=== PATIENT | female | born 1960 | race Caucasian/White ===

== ENCOUNTER 2018-02-02 09:06 | Outpatient (CLI) | payer MEDICARE, MEDICAID | END 2018-02-02 09:07 | disposition home or self-care (01) | LOC: BICULT 09:06 | PROVIDERS: ATTEND Internal Medicine | DX: B18.2 Chronic viral hepatitis C (principal); R16.0 Hepatomegaly, not elsewhere classified; R16.1 Splenomegaly, not elsewhere classified | CPT/HCPCS: 76705 ==

== ENCOUNTER 2018-07-05 23:08 | Inpatient (IN) | payer MEDICARE, MEDICAID ==
[2018-07-05] MEDS ORDERED: Ondansetron PF 4 MG/2 ML Vial ONE (23:35)
[2018-07-05] MEDS ORDERED: Octreotide Acetate 100 MCG/ML VIAL ONE (23:40)
[2018-07-05] MEDS ORDERED: Pantoprazole 80 MG in Sodium Chloride 0.9% 100 ML IVP SCH (23:45)
[2018-07-05] MEDS ORDERED: Octreotide Acetate 1,250 MCG in Sodium Chloride 0.9% 250 ML 250 ML IVPB SCH (23:45)
[2018-07-05] MEDS ORDERED: cefTRIAXone\\ROCEPHIN 2 GM VIAL ONE (23:46)
[2018-07-05 23:55] LABS: INR-International Normal Ratio 1.5; PTT 32.4 SEC (22.9-36.1); Prothrombin Time 18.3 SEC (12.0-14.7)
[2018-07-06 00:10] LABS: ALT (SGPT) 11 U/L (8-55); AST (SGOT) 20 U/L (5-34); Albumin 3.1 g/dL (3.5-5.0); Alkaline Phosphatase 51 U/L (40-150); Anion Gap 11 mmol/L (10-20); BUN (Urea Nitrogen) 34 mg/dL (9.8-20.1); Bilirubin, Total 0.9 mg/dL (0.2-1.2); Calc. Creatinine Clearance 0 mL/min (70-130); Calcium 8.3 mg/dL (7.8-10.44); Carbon Dioxide 22 mmol/L (22-29); Chloride 102 mmol/L (98-107); Estimated GFR-MDRD 73; Globulin 3.8 g/dL (2.4-3.5); Glucose 124 mg/dL (70-105); Lipase 23 U/L (8-78); Potassium 3.4 mmol/L (3.5-5.1); Protein, Total 6.9 g/dL (6.0-8.3); Sodium 132 mmol/L (136-145)
[2018-07-06 00:12] LABS: #Basophils 0.1 thou/uL (0.0-0.2); #Eosinphils 0.1 thou/uL (0.0-0.7); #Lymphocytes 3.8 thou/uL (1.20-3.40); #Monocytes 0.6 thou/uL (0.11-0.59); #Neutrophils 6.4 thou/uL (1.40-6.50); %Basophils 0.8 % (0.0-1.0); %Eosinophils 1.3 % (0.0-10.0); %Lymphocytes 34.2 % (21.0-51.0); %Monocytes 5.8 % (0.0-10.0); %Neutrophils 57.9 % (42.0-75.0); Hemoglobin 8.7 g/dL (12.0-16.0); Mean Corpuscular HGB CONC 34.9 g/dL (32.0-36.0); Mean Corpuscular Hemoglobin 34.9 pg (27.0-31.0); Mean Corpuscular Volume 99.9 fL (78.0-98.0); Mean Platelet Volume 9.8 fL (7.4-10.4); PLT Morphology Comment Appears Adequate; Platelet Count 114 thou/uL (130-400)
--- NOTE | 2018-07-06 01:34 | PDOC.FPRHP ---
- History of Present Illness Chief Complaint: hematemesis History of Present Illness: This is a 58 yo F who presented to the ED for coffee ground emesis. Patient states she began vomiting about 2-3 hours prior to arrival at the ED. The patient has a PMH significant for Hep C s/p treatment and cirrhosis. Patient states that she [place] been feeling weak over the last week - the patient thought she may have a virus or bug that would pass. On Friday, the weakness worsened and the patient began walking into [place] and feeling unsteady due to weakness. The patient endorses feeling hot and having chills. She states she has gotten progressively SOB over the last few days. She states she has chronic constipation, but she did pass stool yesterday that was dark black. Patient denies cough, chest pain, abdominal pain, LE swelling, headache. ED Course: 4mg IV zofran, 50mcg IVP octreotide, 2g IV Ceftriaxone, 25mcg/hr IV octreotide, 80mg IV protonix, 1L NS - Allergies/Adverse Reactions Allergies Allergy/AdvReac Type Severity Reaction Status Date / Time codeine Allergy Verified 07/05/18 23:39 Iodine and Iodide Containing Allergy Verified 07/05/18 23:40 Produc - History PMHx: HTN, HLD, COPD, Hep C, "heart issues" - affecting her valve PSHx: & tubal ligation in , Knee , hysterectomy FHx: mom/sister - "female" cancer; Uncle - brain cancer Social: 2pack/day X 45 years, quit alcohol 5 years ago - but was "hard drinker" prior to that; smokes weed daily - Review of Systems General: reports: fever/chills, night sweats, fatigue. denies: weight/appetite/ sleep changes ENT: denies: nasal congestion, rhinorrhea Respiratory: reports: cough, shortness of breath. denies: congestion, exercise intolerance Cardiovascular: denies: chest pain, palpitation, edema Gastrointestinal: reports: nausea, vomiting, constipation. denies: diarrhea, abdominal pain Genitourinary: denies: dysuria Skin: reports: jaundice. denies: rashes, lesions Neurological: reports: weakness - Vital signs BP: 120/84 HR: 85 RR: 18 Tmax: 97.9 Pox: 99% on RA Wt: 68 kg - Physical Exam Constitutional: NAD, awake, alert and oriented, well developed HEENT: normocephalic and atraumatic, PERRLA, EOMI, grossly normal vision, grossly normal hearing -HEENT: MM Dry Neck: supple, FROM, no JVD Chest: no-tender to palpation, no lesions Heart: RRR, normal S1/S2, no murmurs/rubs/gallops, pulses present Lungs: CTAB, no respiratory distress, good air movement, no wheezing Abdomen: soft -Abdomen: Liver distended, firm; mildly TTP abdomen, mostly in RUQ Musculoskeletal: ROM grossly normal Neurological: no focal deficit Skin: no rash/lesions, capillary refill <2 seconds Psychiatric: normal mood and affect, good judgment and insight, intact recent and remote memory FMR H&P: Results - Labs Result Diagrams: 07/06/18 03:40 07/06/18 03:40 Lab results: WBC 11.0 thou/uL (4.8-10.8) H 07/05/18 23:37 Hgb 8.7 g/dL (12.0-16.0) L 07/05/18 23:37 Hct 24.9 % (36.0-47.0) L 07/05/18 23:37 MCV 99.9 fL (78.0-98.0) H 07/05/18 23:37 Plt Count 114 thou/uL (130-400) L 07/05/18 23:37 Neutrophils % 57.9 % (42.0-75.0) 07/05/18 23:37 Sodium 132 mmol/L (136-145) L 07/05/18 23:37 Potassium 3.4 mmol/L (3.5-5.1) L 07/05/18 23:37 Chloride 102 mmol/L (98-107) 07/05/18 23:37 Carbon Dioxide 22 mmol/L (22-29) 07/05/18 23:37 BUN 34 mg/dL (9.8-20.1) H 07/05/18 23:37 Creatinine 0.81 mg/dL (0.6-1.1) 07/05/18 23:37 Glucose 124 mg/dL (70-105) H 07/05/18 23:37 Calcium 8.3 mg/dL (7.8-10.44) 07/05/18 23:37 Total Bilirubin 0.9 mg/dL (0.2-1.2) 07/05/18 23:37 AST 20 U/L (5-34) 07/05/18 23:37 ALT 11 U/L (8-55) 07/05/18 23:37 Alkaline Phosphatase 51 U/L (40-150) 07/05/18 23:37 Serum Total Protein 6.9 g/dL (6.0-8.3) 07/05/18 23:37 Albumin 3.1 g/dL (3.5-5.0) L 07/05/18 23:37 Lipase 23 U/L (8-78) 07/05/18 23:37 FMR H&P: A/P - Problem List (1) Hematemesis Current Visit: Yes Status: Acute Code(s): K92.0 - HEMATEMESIS (2) Hepatitis C Current Visit: Yes Status: Acute Code(s): B19.20 - UNSPECIFIED VIRAL HEPATITIS C WITHOUT HEPATIC COMA (3) HLD (hyperlipidemia) Current Visit: Yes Status: Acute Code(s): E78.5 - HYPERLIPIDEMIA, UNSPECIFIED (4) HTN (hypertension) Current Visit: Yes Status: Acute Code(s): I10 - ESSENTIAL (PRIMARY) HYPERTENSION (5) Anemia Current Visit: Yes Status: Acute Code(s): D64.9 - ANEMIA, UNSPECIFIED (6) Leukocytosis Current Visit: Yes Status: Acute Code(s): D72.829 - ELEVATED WHITE BLOOD CELL COUNT, UNSPECIFIED (7) Elevated INR Current Visit: Yes Status: Acute Code(s): R79.1 - ABNORMAL COAGULATION PROFILE (8) Thrombocytopenia Current Visit: Yes Status: Acute Code(s): D69.6 - THROMBOCYTOPENIA, UNSPECIFIED (9) Cirrhosis Current Visit: Yes Status: Acute Code(s): K74.60 - UNSPECIFIED CIRRHOSIS OF LIVER - Plan Symptomatic anemia 2/2 Upper GI bleed - likely 2/2 ulcer vs variceal bleed - continue protonix and octreotide gtt - Hgb 8.7 on admission; transfused 1uPRBCs - Repeat H&H @ 0600 - GI consulted from the ER; appreciate recs. Pt NPO for possible EGD - LR @ 125 ml/hr - Continue rocephin to cover for SBP Suspected Cirrhosis likely 2/2 Hep C - Will order RUQ US - Hep C pending - RPR and HIV pending Thrombocytopenis 2/2 likely cirrhosis - plt on admission: 114 - not currently bleeding - Will continue to monitor Elevated INR 2/2 Cirrhosis - PT 18.3; INR 1.5 - will continue to monitor HTN & HLD - aware, will hold medications for now Tobacco abuse - nicotine patch - smoking cessation counselling Marijuana use - aware, encouraged cessation DISPO: admit to medical, inpt CODE: FULL FMR H&P: Upper Level - Pertinent history 58 yo WF PMH tobacco abuse, Hepatitis C s/p treatment, CAD, and unspecified valvular dysfunction. Presents with 1 week history of generalized malaise, fatigue, and weakness. States she has had very little energy and becomes exhausted after walking short distances. 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 Also report last stool was black. reports constipation. Sees Dr. Stover from GI. ER: Labs, EKG, type and cross 1 unit, transfuse 1 unit, zofran, octreotide gtt, protonix gtt, rocephin 2 g, NS 1 L, GI consulted. - Pertinent findings Vitals: At time of evaluation all WNL GEN: NAD, A&O x4 CV: RRR, no murmur Pulm: CTA-B, normal effort Abdomen: TTP RUQ, liver edge firm, otherwise WNL Labs: H&H 8.7/24.9, platlets 114, INR 1.5, FOBT positive, EKG:rate 88, NSR, QTc 489 - Plan Date/Time: 07/06/18 0133 I, Aly Mejia MD, have evaluated this patient and agree with findings/plan as outlined by planner internship resident. Pertinent changes/additions are listed here. 1. Symptomatic anemia 2/2 upper GI bleed, (ulcer vs variceal): Continue protonix and octreotide gtt, Repeat H&H at 0600, GI consulted in ER and will see evaluate in the morning. Monitor vitals. s/p 1 unit PRBC, LR at 125 mL/hr. Continue rocephin. 2. Suspected cirrhosis: RUQ US, check hep C viral load, hep B surface antigen and antibody, HIV, and RPR 3. Thrombocytopenia 2/2 #2: monitor. no signs of bleeding 4. Elevated INR 2/2 #2: Monitor 5. CAD: No signs of cardiac stress at this time. 6. Tobacco abuse: Nicotine patch 7. Marijuana use: encouraged cessation Diet: NPO PPx: SCD, fall CODE: FULL Dispo: inpatient, medical, >[address] Duenas. Addendum - Attending - Attending Attestation Date/Time: 07/06/18 5190 I personally evaluated the patient and discussed the management with Dr. Garcia/ Roberto. I agree with the History, Examination, Assessment and Plan documented above with any addition or exceptions noted below. Suspect UGI bleed in likely cirrhotic patient. Trend H/H. Octreotide, Rocephin for ppx, Protonix. GI on board for likely EGD later today. Further recs per that result.
[2018-07-06] MEDS ORDERED: Ondansetron PF 4 MG/2 ML Vial IVP PRN (01:49)
[2018-07-06] MEDS ORDERED: Ondansetron ODT 4 MG TAB PO PRN (01:49)
[2018-07-06] MEDS ORDERED: Senokot S 8.6-50 MG TAB PO PRN (01:49)
[2018-07-06] MEDS ORDERED: Pantoprazole 80 MG in Sodium Chloride 0.9% 100 ML IVP SCH (02:30)
[2018-07-06] MEDS ORDERED: Lactated Ringer's 1,000 ML IV SCH (02:30)
[2018-07-06] MEDS ORDERED: Octreotide Acetate 1,250 MCG in Sodium Chloride 0.9% 250 ML 250 ML IVPB SCH (02:30)
[2018-07-06] MEDS ORDERED: Nicotine 21 MG PATCH TD SCH (03:00)
[2018-07-06 03:47] LABS: HBSAB Concentration 0.91 mIU/mL; HIV (1/2) Antibody/Antigen Non-Reactive (NonReactive); HIV 1/2 INDEX 0.13 S/CO (<1.00); Hep B Surf AB Non-Reactive (NonReactive); Hep B Surf Ag Non-Reactive S/CO (NonReactive)
[2018-07-06 03:56] LABS: #Eosinphils 0.1 thou/uL (0.0-0.7); #Lymphocytes 1.6 thou/uL (1.20-3.40); #Monocytes 0.4 thou/uL (0.11-0.59); #Neutrophils 4.7 thou/uL (1.40-6.50); %Basophils 0.3 % (0.0-1.0); %Eosinophils 0.9 % (0.0-10.0); %Lymphocytes 23.4 % (21.0-51.0); %Monocytes 5.4 % (0.0-10.0); Hemoglobin 8.6 g/dL (12.0-16.0); Mean Corpuscular HGB CONC 34.7 g/dL (32.0-36.0); Mean Corpuscular Hemoglobin 33.8 pg (27.0-31.0); Mean Corpuscular Volume 97.6 fL (78.0-98.0); Mean Platelet Volume 9.8 fL (7.4-10.4); Platelet Count 82 thou/uL (130-400); RBC Distribution Width 13.9 % (11.5-14.5); Red Blood Cell (RBC) Count 2.54 mill/uL (4.20-5.40); White Blood Cell (WBC) Count 6.7 thou/uL (4.8-10.8)
[2018-07-06 04:07] LABS: ALT (SGPT) 10 U/L (8-55); AST (SGOT) 19 U/L (5-34); Albumin 2.9 g/dL (3.5-5.0); Alkaline Phosphatase 48 U/L (40-150); Anion Gap 9 mmol/L (10-20); BUN (Urea Nitrogen) 32 mg/dL (9.8-20.1); Bilirubin, Total 0.7 mg/dL (0.2-1.2); Calc. Creatinine Clearance 0 mL/min (70-130); Calcium 7.7 mg/dL (7.8-10.44); Carbon Dioxide 22 mmol/L (22-29); Chloride 107 mmol/L (98-107); Estimated GFR-MDRD 74; Globulin 3.6 g/dL (2.4-3.5); Glucose 132 mg/dL (70-105); Potassium 3.5 mmol/L (3.5-5.1); Protein, Total 6.5 g/dL (6.0-8.3); Sodium 134 mmol/L (136-145)
[2018-07-06 05:20] LABS: Syphilis Antibody Nonreactive (Nonreactive); Syphilis Antibody Index 0.09 S/CO (<1.00 Non-Reactive)
--- NOTE | 2018-07-06 09:21 | ULT ---
RIGHT UPPER QUADRANT ULTRASOUND: Indication: History of cirrhosis. Comparison: None. FINDINGS: There is a nodular contour to the liver with course echogenicity consistent with the patient's histor y of cirrhosis. No focal lesion is evident. Small stones are seen within the gallbladder. No sonograp hic Prado's signs reported. The common bile duct measures 3.8 mm. The right kidney measured 12 cm in length. Visualized aspects of the pancreas are unremarkable. IMPRESSION: 1. Cirrhotic morphology of the liver. 2. Cholelithiasis without sonographic evidence of acute cholecystitis. POS: [facility]
[2018-07-06 09:41] LABS: Mean Corpuscular HGB CONC 35.2 g/dL (32.0-36.0); Mean Corpuscular Hemoglobin 34.3 pg (27.0-31.0); Mean Corpuscular Volume 97.6 fL (78.0-98.0); Mean Platelet Volume 9.9 fL (7.4-10.4); Platelet Count 82 thou/uL (130-400); RBC Distribution Width 14.1 % (11.5-14.5); Red Blood Cell (RBC) Count 2.33 mill/uL (4.20-5.40); White Blood Cell (WBC) Count 6.1 thou/uL (4.8-10.8)
--- NOTE | 2018-07-06 10:27 | CON ---
DATE OF CONSULTATION: 07/06/2018 GASTROENTEROLOGY CONSULTATION NOTE CHIEF COMPLAINT: Vomited blood. HISTORY OF PRESENT ILLNESS: Ms. Harvey is a 58-year-old woman, who has been feeling weak for the last couple of days. Last night, she started vomiting large amounts of black and coffee-ground appearing material. She did this several times and came to the emergency room, was found to have hemorrhagic shock with a blood pressure in the 60s. She was given fluids and blood transfusion with improvement in her blood pressure. She has had no red hematemesis. She has no abdominal pain. She has had constipation at baseline lately with her last good bowel movement a week ago with Ex-Lax. She has had some small stools in between. No loose stool output with this acute bleed. She finished treatment for hepatitis C with a sustained virologic response several months ago. She had colonoscopy back in February [address] Stover with some hyperplastic polyps removed. She was last seen in GI Clinic on January 2018 and was advised to undergo endoscopy for varices screening, however, she chose to delay this. PAST MEDICAL HISTORY: Cirrhosis, hepatitis C treated with Epclusa with cure and chronic constipation. PAST SURGICAL HISTORY: Knee surgery, hysterectomy, foot surgery, , and tubal ligation. SOCIAL HISTORY: She states she drank a couple of beers immediately after finishing the Epclusa course, but has not been drinking since then. She smokes 3 to 4 marijuana cigarettes per day. She smokes 2 packs of tobacco cigarettes per day. Denies IV drug use. FAMILY HISTORY: Mother had female cancer. Sister had female cancer. Her uncle had brain cancer. ALLERGIES: CODEINE. MEDICATIONS: Medications as an outpatient include: 1. Toprol-XL. 2. Tetracycline, which she takes for acne. 3. Nortriptyline. 4. Pravastatin. 5. Estradiol. 6. Albuterol. REVIEW OF SYSTEMS: Negative x10 systems reviewed except as stated in the history of present illness. PHYSICAL EXAMINATION: VITAL SIGNS: Blood pressure 98/48, pulse 80, and temperature 97.9. GENERAL: She is in no acute distress. She is alert and oriented x3. HEENT: Eyes have no scleral icterus. Oropharynx is clear without lesions. NECK: No cervical or supraclavicular lymphadenopathy. LUNGS: Clear to auscultation bilaterally. HEART: Regular rate and rhythm without murmur. ABDOMEN: Soft, nontender, and nondistended. Bowel sounds are present. No hepatomegaly. EXTREMITIES: No lower extremity edema. NEUROLOGIC: Cranial nerves are grossly intact. There is no asterixis on neurological exam. LABORATORY DATA: INR 1.5. Hemoglobin is 8.6 after 1 unit transfusion, hemoglobin was 8.7 prior to transfusion, platelets 82,000, white blood cell count 6.7. Creatinine 0.8, bilirubin 0.9, AST 19, ALT 10, alkaline phosphatase 48, albumin is 2.9, and lipase 23. IMPRESSION: 1. Hematemesis and anemia of acute blood loss. She has received 1 unit transfusion. 2. Cirrhosis due to hepatitis C and past alcohol. She has not been drinking any alcohol for the last few months. 3. Tobacco abuse. She smokes 2 packs a day and 3 or 4 marijuana cigarettes per day. 4. History of hepatitis C, treated with Epclusa and cured. 5. There is no history of ascites or encephalopathy. RECOMMENDATIONS: 1. Octreotide drip. 2. Protonix drip. 3. Ceftriaxone for SBP prophylaxis. 4. EGD today. Job ID: [id number]
[2018-07-06] MEDS ORDERED: PHENYLEPHRINE-NS 100 MCG/ML 10 ML SYRINGE ONE (13:47)
[2018-07-06] MEDS ORDERED: PROPOFOL 200 MG/20 ML VIAL ONE (13:47)
[2018-07-06] MEDS ORDERED: Lidocaine 1% PF 5 ML VIAL ONE (13:47)
[2018-07-06] MEDS ORDERED: Ondansetron PF 4 MG/2 ML Vial ONE (13:47)
[2018-07-06] MEDS ORDERED: Succinylcholine Chloride 20 MG/ML 10 ml SYRINGE FS ONE (13:47)
--- NOTE | 2018-07-06 16:26 | OP ---
DATE OF PROCEDURE: 07/06/2018 PROCEDURE PERFORMED: Esophagogastroduodenoscopy. PREOPERATIVE DIAGNOSES: Hematemesis and hypovolemic shock. Her hemodynamic status is improved with fluids and 1 unit of red blood cell transfusion. She also has a history of cirrhosis. DESCRIPTION OF PROCEDURE: Informed consent was obtained from the patient. She was sedated with total intravenous anesthesia. The bite block was placed, and the endoscope was advanced easily to the second portion of the duodenum, and retroflexion was performed in the stomach. The esophagus was normal overall. There were no varices present. No obvious Kenzie-Ch tear at the GE junction. The stomach had mild portal hypertensive gastropathy in the body of the stomach. There was staining of old black blood, and a couple of areas of adherent red blood in the antrum and in the bulb of the duodenum. All this washed clear without any significant underlying lesion. There were 2 erosions in the antrum of the stomach measuring 3 mm again without stigmata of recent bleeding. No varices were in the esophagus or stomach. The second portion the duodenum was unremarkable. The mucosa was carefully inspected. There were no obvious AVMs. There were a few small red spots that again washed clear without any signs of active bleeding and did not appear to be apparent obvious AVMs. IMPRESSION: 1. Two small 3-mm antral erosions without stigmata of recent bleeding. 2. Mild portal hypertensive gastropathy. 3. There are a few areas of adherent black blood and red blood in the antrum and bulb of the duodenum. All this washed clear without any underlying lesion or apparent bleeding source identified. 4. No gastric or esophageal varices. 5. She could have had a Kenzie-Ch tear that bled and has healed over. RECOMMENDATIONS: 1. Continue pantoprazole 40 mg p.o. daily. 2. Discontinue octreotide. 3. Start a clear liquid diet. 4. Recheck her hemoglobin in the morning. 5. She did receive ceftriaxone IV for SBP prophylaxis in the ER last night. Job ID: [id number]
[2018-07-06 19:01] LABS: Hemoglobin 6.9 g/dL (12.0-16.0); Mean Corpuscular HGB CONC 35.4 g/dL (32.0-36.0); Mean Corpuscular Hemoglobin 34.6 pg (27.0-31.0); Mean Corpuscular Volume 97.7 fL (78.0-98.0); Mean Platelet Volume 10.2 fL (7.4-10.4); Platelet Count 58 thou/uL (130-400); RBC Distribution Width 14.2 % (11.5-14.5); Red Blood Cell (RBC) Count 1.99 mill/uL (4.20-5.40); White Blood Cell (WBC) Count 3.8 thou/uL (4.8-10.8)
[2018-07-06] MEDS: Lactated Ringer's 1,000 ML IV SCH (22:06)
[2018-07-06] MEDS: Bisacodyl 5 MG TAB PO SCH (22:06)
[2018-07-07] MEDS: Lactated Ringer's 1,000 ML IV SCH ×2 (00:07→08:56)
[2018-07-07] MEDS: cefTRIAXone\\ROCEPHIN 2 GM in Sodium Chloride 0.9% 100 ML IVPB SCH ×2 (00:24→23:55)
[2018-07-07 05:46] LABS: INR-International Normal Ratio 1.4; Prothrombin Time 17.7 SEC (12.0-14.7)
[2018-07-07 05:52] LABS: #Monocytes 0.2 thou/uL (0.11-0.59); #Neutrophils 0.9 thou/uL (1.40-6.50); %Basophils 0.2 % (0.0-1.0); %Eosinophils 1.7 % (0.0-10.0); %Lymphocytes 46.3 % (21.0-51.0); %Monocytes 8.4 % (0.0-10.0); %Neutrophils 43.4 % (42.0-75.0); Hemoglobin 7.5 g/dL (12.0-16.0); Mean Corpuscular HGB CONC 35.6 g/dL (32.0-36.0); Mean Corpuscular Hemoglobin 34.7 pg (27.0-31.0); Mean Corpuscular Volume 97.6 fL (78.0-98.0); Mean Platelet Volume 9.4 fL (7.4-10.4); Platelet Count 62 thou/uL (130-400); RBC Distribution Width 13.5 % (11.5-14.5); Red Blood Cell (RBC) Count 2.15 mill/uL (4.20-5.40); White Blood Cell (WBC) Count 2.1 thou/uL (4.8-10.8)
[2018-07-07] MEDS ORDERED: traMADol HCl 50 MG TAB PO PRN (06:58)
[2018-07-07 07:17] LABS: Reticulocyte Count 4.4 % (0.5-1.5)
--- NOTE | 2018-07-07 07:29 | PDOC.FM ---
- Subjective Subjective: Patient was transfused 1 U PRBC last night after hgb came back at 6.9. This morning patient denies symptoms. She denies dyspnea, lightheadedness, or chest pain. She denies N/V/D. Denies any stools. Patient states she has been able to ambulate to the restroom without difficulty. She has been having a mild headache since last night which caused some trouble sleeping. - Objective Vital Signs & Weight: Vital Signs (12 hours) Temp Pulse Pulse Resp BP BP BP 07/07/18 03:30 99.2 F 94 18 95/55 L 07/06/18 22:42 98.9 F 16 129/60 07/06/18 21:05 98.2 F 90 16 125/57 L 07/06/18 20:31 96.8 F L 97 18 111/63 07/06/18 20:15 97.2 F L 91 18 96/54 L Pulse Ox 07/07/18 03:30 94 L 07/06/18 22:42 99 07/06/18 21:05 99 07/06/18 20:31 100 07/06/18 20:15 98 I&O: 07/06/18 07/07/18 07/08/18 06:59 06:59 06:59 Intake Total 2070 Output Total 1100 Balance 970 Result Diagrams: 07/07/18 05:11 07/06/18 03:40 Phys Exam - Physical Examination Constitutional: NAD HEENT: PERRLA, moist MMs Neck: no nodes, no JVD pale [place] Respiratory: no wheezing, clear to auscultation bilateral Cardiovascular: RRR, no significant murmur Gastrointestinal: soft, non-tender, no distention, positive bowel sounds Musculoskeletal: no edema, pulses present Neurological: non-focal, moves all 4 limbs Psychiatric: normal affect, A&O x 3 Skin: no rash, cap refill <2 seconds Dx/Plan (1) Anemia Code(s): D64.9 - ANEMIA, UNSPECIFIED Status: Acute (2) Cirrhosis Code(s): K74.60 - UNSPECIFIED CIRRHOSIS OF LIVER Status: Acute (3) Elevated INR Code(s): R79.1 - ABNORMAL COAGULATION PROFILE Status: Acute (4) HLD (hyperlipidemia) Code(s): E78.5 - HYPERLIPIDEMIA, UNSPECIFIED Status: Acute (5) HTN (hypertension) Code(s): I10 - ESSENTIAL (PRIMARY) HYPERTENSION Status: Acute (6) Hematemesis Code(s): K92.0 - HEMATEMESIS Status: Acute (7) Hepatitis C Code(s): B19.20 - UNSPECIFIED VIRAL HEPATITIS C WITHOUT HEPATIC COMA Status: Acute (8) Thrombocytopenia Code(s): D69.6 - THROMBOCYTOPENIA, UNSPECIFIED Status: Acute - Plan Plan: Symptomatic anemia 2/2 Upper GI bleed- suspect jeff sheppard tear - EGD 07/07 showed 3mm antral erosion, suspect jeff-sheppard tear - s/p octreotide, protonix gtt - protonix BID, iron, thiamine, folate - transfused 2uPRBCs this admit - LR @ 125 ml/hr - Continue rocephin to cover for SBP - GI consulted, appreciate recs Pancytopenia likely 2/2 blood loss - MCV WNL - Retic count 4.4 this AM - re-check cbc at 1600 Suspected Cirrhosis likely 2/2 Hep C - RUQ US shows evidence of cirrhosis - Hep C pending - RPR and HIV negative - INR 1.4 Thrombocytopenis 2/2 likely cirrhosis, blood loss - plt 62 this AM - not currently bleeding - Will continue to monitor HTN & HLD - hold home meds Tobacco abuse - nicotine patch - smoking cessation counselling Marijuana use - aware, encouraged cessation DISPO: admit to medical, inpt CODE: FULL Fluids: LR 125 ml/hr Diet: clear liquid, likely will advance diet today will defer to GI DVT PPx: thrombocytopenic Addendum - Attending - Attending Attestation Date/Time: 07/07/18 1014 I personally evaluated the patient and discussed the management with Dr. Mccracken. I agree with the History, Examination, Assessment and Plan documented above with any addition or exceptions noted below. Patient improved this morning. Had EGD yesterday which did not show any evidence of vaciceal bleeding. Octreotide stopped. Continues on Rocephin and Protonix BID. Hgb improved today but still on lower end, will trend this PM and transfuse 1u if any lower. BP stable. Awaiting further GI recs, likely advance diet with their clearance. Anticipate 1-2 more days in hospital pending clinical course. U/S shows cirrhotic appearing liver.
[2018-07-07] MEDS: Folic Acid 1 MG TAB PO SCH (08:53)
[2018-07-07] MEDS: Cyanocobalamin (Vitamin B-12) 1,000 MCG TAB PO SCH (08:53)
[2018-07-07] MEDS: Ferrous Sulfate 325 MG TAB PO SCH ×2 (08:54→16:56)
[2018-07-07] MEDS: Bisacodyl 5 MG TAB PO SCH (08:54)
[2018-07-07] MEDS: Nicotine 21 MG PATCH TD SCH (08:55)
[2018-07-07 16:05] LABS: #Lymphocytes 0.7 thou/uL (1.20-3.40); #Monocytes 0.1 thou/uL (0.11-0.59); %Basophils 0.4 % (0.0-1.0); %Eosinophils 2.3 % (0.0-10.0); %Lymphocytes 36.5 % (21.0-51.0); %Monocytes 6.8 % (0.0-10.0); Hemoglobin 7.7 g/dL (12.0-16.0); Mean Corpuscular HGB CONC 35.6 g/dL (32.0-36.0); Mean Corpuscular Hemoglobin 34.8 pg (27.0-31.0); Mean Corpuscular Volume 97.8 fL (78.0-98.0); Mean Platelet Volume 9.2 fL (7.4-10.4); Platelet Count 68 thou/uL (130-400); RBC Distribution Width 13.2 % (11.5-14.5); Red Blood Cell (RBC) Count 2.22 mill/uL (4.20-5.40); White Blood Cell (WBC) Count 1.9 thou/uL (4.8-10.8)
--- NOTE | 2018-07-07 16:51 | PRG ---
DATE OF SERVICE: 07/07/2018 GI INPATIENT DAILY PROGRESS NOTE SUBJECTIVE: Ms. Harvey says she is feeling a lot better today. She denies any abdominal pain or nausea. She has been tolerating her clear liquid diet, just fine. She does still feel weak. She has not had any melena or actually any bowel movements today. She has a little bit of a sore throat. OBJECTIVE: VITAL SIGNS: Temperature 97.7, pulse 94, blood pressure 114/60, 100% oxygen saturation on room air. GENERAL: No acute distress. HEART: Regular rate and rhythm. LUNGS: Clear to auscultation bilaterally. ABDOMEN: Bowel sounds present. Soft and nontender to palpation. EXTREMITIES: No peripheral edema. LABORATORY STUDIES: Hemoglobin was 7.5 this morning, this is after 1 unit RBC transfusion last night. WBC 2.1, platelets 62. INR 1.4. Sodium 134, potassium 3.5, BUN 32, creatinine 0.80. That BMP was from yesterday. ASSESSMENT AND PLAN: 1. Upper gastrointestinal bleeding, possibly from acute Kenzie-Ch tear that had bled and healed over by the time of her esophagogastroduodenoscopy yesterday. 2. Mild portal hypertensive gastropathy. 3. Erosive gastritis in the antrum. 4. Acute blood loss anemia, now stabilized. 5. Cirrhosis, secondary to alcohol and hepatitis C, otherwise fairly well compensated. 6. Hepatitis C, status post successful sustained virologic response after treatment with Epclusa within the past year. I see no evidence of overt gastrointestinal rebleeding. Should recheck CBC tomorrow. I think the plan is for her to get one more unit of blood today. Also check basic metabolic panel to assure BUN is downtrending tomorrow morning. I think her diet can be further advanced to a full liquid diet. If she is feeling well tomorrow morning, this could be further advanced. Continue on the PPI twice daily. If everything looks stable tomorrow morning, she could potentially be discharged from the hospital from a GI standpoint. Thank you again for the consultation. Please call with questions or concerns. Job ID: [id number]
[2018-07-08] MEDS: Lactated Ringer's 1,000 ML IV SCH ×3 (05:16→05:20)
[2018-07-08 05:24] VITALS: TEMP 97.9
[2018-07-08 06:02] LABS: #Lymphocytes 0.8 thou/uL (1.20-3.40); #Monocytes 0.1 thou/uL (0.11-0.59); #Neutrophils 1.1 thou/uL (1.40-6.50); %Basophils 0.6 % (0.0-1.0); %Lymphocytes 37.2 % (21.0-51.0); %Monocytes 5.7 % (0.0-10.0); %Neutrophils 54.4 % (42.0-75.0); Hemoglobin 8.9 g/dL (12.0-16.0); Mean Corpuscular Hemoglobin 33.4 pg (27.0-31.0); Mean Corpuscular Volume 95.7 fL (78.0-98.0); Mean Platelet Volume 9.1 fL (7.4-10.4); Platelet Count 63 thou/uL (130-400); RBC Distribution Width 13.7 % (11.5-14.5); Red Blood Cell (RBC) Count 2.65 mill/uL (4.20-5.40)
[2018-07-08 06:10] LABS: Anion Gap 9 mmol/L (10-20); BUN (Urea Nitrogen) 6 mg/dL (9.8-20.1); Calc. Creatinine Clearance 84 mL/min (70-130); Calcium 8.1 mg/dL (7.8-10.44); Carbon Dioxide 21 mmol/L (22-29); Chloride 106 mmol/L (98-107); Estimated GFR-MDRD 75; Glucose 90 mg/dL (70-105); Sodium 133 mmol/L (136-145)
--- NOTE | 2018-07-08 06:35 | PDOC.FM ---
- Subjective Subjective: This morning patient states she slept well overnight. Denies pain at time of exam. Did have 2 dark bms overnight. Tolerated full liquid diet well, had ice cream and soup without N/V. Patient states she has been ambulating without difficultly. - Objective Vital Signs & Weight: Vital Signs (12 hours) Temp Pulse Pulse Resp BP BP BP 07/08/18 04:00 97.9 F 93 16 95/50 L 07/07/18 22:19 98.0 F 87 16 120/57 L 07/07/18 19:25 98.8 F 101 H 16 116/62 07/07/18 19:05 98.9 F 101 H 16 162/66 H 07/07/18 18:40 98.8 F 98 18 162/66 H Pulse Ox 07/08/18 04:00 97 07/07/18 22:19 07/07/18 19:25 100 07/07/18 19:05 07/07/18 18:40 100 Weight Weight 66.814 kg I&O: 07/06/18 07/07/18 07/08/18 06:59 06:59 06:59 Intake Total 2070 2610 Output Total 1100 Balance 970 2610 Result Diagrams: 07/08/18 05:40 07/08/18 05:40 Phys Exam - Physical Examination Constitutional: NAD HEENT: PERRLA, moist MMs Respiratory: no wheezing, clear to auscultation bilateral Cardiovascular: RRR, no significant murmur Gastrointestinal: soft, non-tender, no distention, positive bowel sounds Musculoskeletal: no edema, pulses present Neurological: non-focal, moves all 4 limbs Psychiatric: normal affect, A&O x 3 Skin: no rash, cap refill <2 seconds Dx/Plan (1) Anemia Code(s): D64.9 - ANEMIA, UNSPECIFIED Status: Acute (2) Cirrhosis Code(s): K74.60 - UNSPECIFIED CIRRHOSIS OF LIVER Status: Acute (3) Elevated INR Code(s): R79.1 - ABNORMAL COAGULATION PROFILE Status: Acute (4) HLD (hyperlipidemia) Code(s): E78.5 - HYPERLIPIDEMIA, UNSPECIFIED Status: Acute (5) HTN (hypertension) Code(s): I10 - ESSENTIAL (PRIMARY) HYPERTENSION Status: Acute (6) Hematemesis Code(s): K92.0 - HEMATEMESIS Status: Acute (7) Hepatitis C Code(s): B19.20 - UNSPECIFIED VIRAL HEPATITIS C WITHOUT HEPATIC COMA Status: Acute (8) Thrombocytopenia Code(s): D69.6 - THROMBOCYTOPENIA, UNSPECIFIED Status: Acute - Plan Plan: Symptomatic anemia 2/2 Upper GI bleed- suspect jeff sheppard tear - EGD 07/07 showed 3mm antral erosion, suspect jeff-sheppard tear - s/p octreotide, protonix gtt - protonix BID, iron, b12, folate - 1 U PRBC 07/07, 3 total this admit - LR @ 125 ml/hr - Continue rocephin to cover for SBP - GI consulted, appreciate recs Pancytopenia likely 2/2 blood loss - MCV WNL - Retic count 4.4 07/07 - Reticulocyte 1.1, suggestive of hypoproliferation Suspected Cirrhosis likely 2/2 Hep C - RUQ US shows evidence of cirrhosis - Hep C pending, previously treated - RPR and HIV negative - INR 1.4 Thrombocytopenis 2/2 likely cirrhosis, blood loss - plt 63 this AM - not currently bleeding - Will continue to monitor Hypokalemia - replete HTN & HLD - hold home meds Tobacco abuse - nicotine patch - smoking cessation counselling Marijuana use - aware, encouraged cessation DISPO: anticipate d/c today pending GI recs CODE: FULL Fluids: LR 125 ml/hr Diet: full liquid DVT PPx: thrombocytopenic Addendum - Attending - Attending Attestation Date/Time: 07/08/18 1027 I personally evaluated the patient and discussed the management with Dr. Mccracken. I agree with the History, Examination, Assessment and Plan documented above with any addition or exceptions noted below. Patient doing well. Hgb stable and improved after transfusion yesterday. Her BUN has downtrended after BM overnight, likely clearing any residual blood in the GI tract. She will be discharged home today with outpatient follow up for anemia and cirrhosis with GI.
[2018-07-08] MEDS ORDERED: Potassium Chloride 20 MEQ TAB PO SCH (08:00)
[2018-07-08] MEDS: Bisacodyl 5 MG TAB PO SCH (09:51)
[2018-07-08] MEDS: Cyanocobalamin (Vitamin B-12) 1,000 MCG TAB PO SCH (09:51)
[2018-07-08] MEDS: Folic Acid 1 MG TAB PO SCH (09:52)
[2018-07-08] MEDS: Ferrous Sulfate 325 MG TAB PO SCH (09:52)
[2018-07-08] MEDS: Nicotine 21 MG PATCH TD SCH (09:52)
[2018-07-08 10:42] VITALS: BP 107/52
[2018-07-08 12:15] LABS: Hep C PCR-Quant HCV Not Detected IU/mL (.)
--- NOTE | 2018-07-09 05:31 | DIS ---
DATE OF ADMISSION: 07/06/2018 DATE OF DISCHARGE: 07/08/2018 RESIDENT: Basil Mccracken MD ADMITTING ATTENDING: Juana Fernando MD DISCHARGE ATTENDING: Jose Duenas MD. CONSULTANTS: Gastroenterology, Dr. Shi and Dr. Stover. PROCEDURES: EGD-showed a 3 mm antral lesion with erosion, not source of bleeding. I suspect a Kenzie-Ch tear as a source of bleeding, now resolved. PRIMARY DIAGNOSIS: Symptomatic anemia secondary to upper GI bleed. SECONDARY DIAGNOSES: Hepatitis C treated, cirrhosis, elevated INR, hyperlipidemia, hypertension, thrombocytopenia, pancytopenia, hypokalemia, tobacco abuse, marijuana abuse. DISCHARGE MEDICATIONS: 1. Iron 325 b.i.d. for one month. 2. B12. 3. Folate. 4. Protonix 40 mg b.i.d. for one month. 5. Dulcolax 10 mg daily, one month. 6. Potassium 20 mEq daily for two weeks. 7. Tylenol. 8. Nortriptyline. 9. Pravastatin. 10. Estradiol. 11. Tetracycline. DISCONTINUED MEDICATIONS: 1. Aspirin. 2. Metoprolol. HISTORY OF PRESENT ILLNESS AND HOSPITAL COURSE: This is a 58-year-old female who came into the ED with 2 episodes of bright red blood per vomit. She was found to have a hemoglobin of 6.9. The patient states she only had 2 episodes of vomiting. She had been having dark stools for few weeks. She denied any times of dry heaving or retching. Prior to this, she denies fevers, chills, sweats. Denied burning with urination, shortness of breath, chest pain , or abdominal pain. The patient had a history of cirrhosis secondary to hepatitis C and past history of heavy drinking. EGD showed a small 3 mm antral erosions which were thought not to be a source of bleeding, thus a resolved Kenzie-Ch tear was the suspected source of the bleed. The patient was on Protonix drip, octreotide, and Rocephin during the hospitalization. The patient's diet was advanced and she tolerated a full liquid diet without difficulty. The patient received a total of 3 units PRBCs during the admission. She was asymptomatic at the time of discharge. The patient was found to have pancytopenia during the admission, this is thought to be secondary to the blood loss. She should have a CBC checked at next visit. DISPOSITION: Stable. DISCHARGE INSTRUCTIONS: 1. Location: Home. 2. Diet: Full liquid and soft until 07/10/2018, and advance as tolerated. 3. Activity: As tolerated. 4. Followup: Dr. Bolton on 07/13/2018, please check on CBC. Follow up with GI in 2 weeks. Job ID: [id number] MTDD
--- NOTE | 2018-07-10 15:09 | EKG ---
Test Reason : Blood Pressure : / mmHG Vent. Rate : 092 BPM Atrial Rate : 092 BPM P-R Int : 130 ms QRS Dur : 076 ms QT Int : 396 ms P-R-T Axes : 065 066 062 degrees QTc Int : 489 ms Normal sinus rhythm Prolonged QT Nonspecific T wave changes Abnormal ECG Confirmed by GIOVANNI MOELLER M.D. ([id number]), legal editor HARPREET JARRELL ([id number] on 07/10/2018 3:09:32 PM Referred By: Confirmed By:GIOVANNI MOELLER M.D.
== END 2018-07-08 12:03 | disposition home or self-care (01) | DRG 368 ==
LOC: ERS 23:08 → ERHOLD 07-06 00:53 → 2NO 07-06 20:21
PROVIDERS: ADMIT Family Medicine; ATTEND Family Medicine
PROC: 30233N1 Transfusion of Nonautologous Red Blood Cells into Peripheral Vein, Percutaneous Approach (ICD-10-PCS; 2018-07-05)
PROC: 0DJ08ZZ Inspection of Upper Intestinal Tract, Via Natural or Artificial Opening Endoscopic (ICD-10-PCS; principal; 2018-07-06)
DX: K22.6 Gastro-esophageal laceration-hemorrhage syndrome (principal); R57.8 Other shock; D62 Acute posthemorrhagic anemia; D61.818 Other pancytopenia; K76.6 Portal hypertension; I10 Essential (primary) hypertension; E78.5 Hyperlipidemia, unspecified; J44.9 Chronic obstructive pulmonary disease, unspecified; B19.20 Unspecified viral hepatitis C without hepatic coma; F17.210 Nicotine dependence, cigarettes, uncomplicated; D72.829 Elevated white blood cell count, unspecified; R79.1 Abnormal coagulation profile; F32.9 Major depressive disorder, single episode, unspecified; K59.00 Constipation, unspecified; F12.90 Cannabis use, unspecified, uncomplicated; K31.89 Other diseases of stomach and duodenum; K29.60 Other gastritis without bleeding; K25.9 Gastric ulcer, unspecified as acute or chronic, without hemorrhage or perforation; K70.30 Alcoholic cirrhosis of liver without ascites; E87.6 Hypokalemia; Z90.710 Acquired absence of both cervix and uterus; Z91.041 Radiographic dye allergy status; Z98.51 Tubal ligation status; Z88.5 Allergy status to narcotic agent; Z71.6 Tobacco abuse counseling
CPT/HCPCS: 36415; 36430; 76705; 80048; 80053; 82274; 83690; 85025; 85046; 85610; 85730; 86706; 86780; 86850; 86900; 86901; 87340; 87389; 87522; 93005; C9113; J0696; J2001; J2354; J2405; J2704; J7050; P9016

== ENCOUNTER 2018-08-31 17:33 | Observation (INO) | payer MEDICARE, MEDICAID ==
[2018-08-31 18:57] LABS: #Eosinphils 0.1 thou/uL (0.0-0.7); #Monocytes 0.2 thou/uL (0.11-0.59); %Basophils 0.9 % (0.0-1.0); %Eosinophils 2.1 % (0.0-10.0); %Lymphocytes 30.1 % (21.0-51.0); %Monocytes 6.6 % (0.0-10.0); %Neutrophils 60.3 % (42.0-75.0); Hemoglobin 14.7 g/dL (12.0-16.0); Mean Corpuscular Hemoglobin 35.1 pg (27.0-31.0); Mean Platelet Volume 8.5 fL (7.4-10.4); Platelet Count 79 thou/uL (130-400); RBC Distribution Width 13.6 % (11.5-14.5); Red Blood Cell (RBC) Count 4.17 mill/uL (4.20-5.40); White Blood Cell (WBC) Count 3.4 thou/uL (4.8-10.8)
[2018-08-31] MEDS ORDERED: Pantoprazole 40 MG VIAL ONE ×2 (19:02→19:04)
--- NOTE | 2018-08-31 19:08 | RAD ---
CHEST ONE VIEW: Comparison: 02-03-12 History: Nausea, vomiting. FINDINGS: Normal cardiac silhouette. The pulmonary vessels and hilum are normal. Costophrenic angles are clear. Hyperinflation with chronic changes. No consolidation or mass. No pneumothorax or acute osseous abno rmality. IMPRESSION: No acute cardiopulmonary process. POS: [facility]
[2018-08-31 19:11] LABS: ALT (SGPT) 34 U/L (8-55); AST (SGOT) 42 U/L (5-34); Albumin 4.2 g/dL (3.5-5.0); Alkaline Phosphatase 80 U/L (40-150); Anion Gap 12 mmol/L (10-20); BUN (Urea Nitrogen) 5 mg/dL (9.8-20.1); Bilirubin, Total 0.5 mg/dL (0.2-1.2); Calc. Creatinine Clearance 0 mL/min (70-130); Calcium 9.8 mg/dL (7.8-10.44); Carbon Dioxide 28 mmol/L (22-29); Chloride 103 mmol/L (98-107); Estimated GFR-MDRD 63; Globulin 4.5 g/dL (2.4-3.5); Glucose 70 mg/dL (70-105); Lipase 55 U/L (8-78); Potassium 3.7 mmol/L (3.5-5.1); Protein, Total 8.7 g/dL (6.0-8.3); Sodium 139 mmol/L (136-145)
[2018-08-31] MEDS ORDERED: Nicotine 14 MG PATCH ONE (19:13)
[2018-08-31 19:18] LABS: INR-International Normal Ratio 1.3; PTT 34.1 SEC (22.9-36.1); Prothrombin Time 15.9 SEC (12.0-14.7)
[2018-08-31 19:27] LABS: Bilirubin Negative (Negative); Blood, Urine Negative (Negative); Clarity CLEAR (Clear); Glucose, Urine (Dipstick) Negative (Negative); Leukocyte Negative (Negative); Nitrite Negative (Negative); Protein, Urine (Dipstick) Negative (Neg-Trace); Urobilinogen 0.2 mg/dL (0.2-1.0); pH, Urine 5.5 (5.0-9.0)
[2018-08-31 19:29] LABS: Specific Gravity, Urine 1.004 (1.002-1.036)
--- NOTE | 2018-08-31 20:25 | PDOC.FPRHP ---
- History of Present Illness Chief Complaint: "internal bleeding" History of Present Illness: 58 yo F comes in for bloody BM. This morning passed 3 dark red clots in her BM , no liquid blood pass. Recently constipated the couple of days but has not taken anything for it. Has been having decreased appetite past couple of weeks with what she thinks is some weight loss. No nausea, emesis, abd pain. Had a colonoscopy [address] Stover and said she had 1-2 polyps told to f/u in 6mos. Not taking any blood thinners, was previous but it was discontinued after last hospitalization. Hospitalizaed in Jun for active for hematemesis requiring 3 PRBCs. Underwent EGD showing gastric erosions but no ulcers, hypertensive gastropathy. Was d/c with daily protonix in which she has been taking. Denies any GI bleeding since last hospitalization prior to today. Denies lightheadeness, palpitations, extreme weakness. ED Course: 1L bolus Protonix - Allergies/Adverse Reactions Allergies Allergy/AdvReac Type Severity Reaction Status Date / Time codeine Allergy Verified 07/05/18 23:39 Iodine and Iodide Containing Allergy Verified 07/05/18 23:40 Produc - Home Medications Medication Instructions Recorded Confirmed Type Acetaminophen [Tylenol Arthritis] 650 mg PO Q6HR PRN 07/06/18 07/06/18 History Albuterol Sulfate [Ventolin HFA] 1 puff INH DAILY 07/06/18 07/06/18 History Cyanocobalamin (Vitamin B-12) 1,000 mcg PO DAILY 07/06/18 07/06/18 History [Vitamin B12] Estradiol [Estrace] 1 mg PO DAILY 07/06/18 07/06/18 History Nortriptyline HCl 25 mg PO HS 07/06/18 07/06/18 History Pravastatin Sodium 20 mg PO HS 07/06/18 07/06/18 History Tetracycline HCl 500 mg PO BID 07/06/18 07/06/18 History diphenhydrAMINE [Benadryl] 25 mg PO Q6HR PRN 07/06/18 07/06/18 History Bisacodyl [Dulcolax] 10 mg PO DAILY 30 Days #30 tab 07/08/18 Rx Cyanocobalamin (Vitamin B-12) 1,000 mcg PO DAILY 30 Days #30 tab 01/09/19 Rx [Vitamin B-12] Ferrous Sulfate [Feosol] 325 mg PO BID-WM 30 Days #60 tab 07/08/18 Rx Folic Acid [Folvite] 1 mg PO DAILY 30 Days #30 tab 07/08/18 Rx Pantoprazole [Protonix] 40 mg PO BID 30 Days #60 tab 07/08/18 Rx Potassium Chloride [K-Dur] 20 meq PO QAM-WM 14 Days #14 tab 07/08/18 Rx - History PMHx: Hx of UGIB, HTN, heart problems, asthma, COPD, HLD, insomnia, Hep C treated, Cirrhosis, Elevated INR, HLD, Tobacco abuse, Marijuana abuse PSHx: hysterectomy, Csx, BTL, foot surgery for tumors in feet, knee surgery for trauma FHx: CAD, ovarian/uterine CA, HTN Social: 2PPD x45yrs, former etoh abuse (last drink 1 yr ago), marijuana use - Review of Systems General: reports: weight/appetite/sleep changes, fatigue. denies: fever/chills , night sweats Eyes: denies: eye pain, vision changes ENT: denies: nasal congestion, rhinorrhea Respiratory: denies: cough, congestion, shortness of breath Cardiovascular: denies: chest pain, palpitation Gastrointestinal: reports: constipation, abdominal pain, GI bleeding. denies: nausea, vomiting, diarrhea Skin: denies: rashes, lesions Musculoskeletal: denies: pain, tenderness, stiffness Neurological: reports: weakness. denies: numbness, syncope, seizure Psychological: denies: anxiety, depression - Vital signs BP: [119/75] HR: [96] RR: [16] Tmax: [98.3] Pox: [97]% on [RA] Wt 63.5kg - Physical Exam Constitutional: NAD, awake, alert and oriented, well developed HEENT: normocephalic and atraumatic, PERRLA, EOMI, conjunctiva clear, no scleral icterus, grossly normal vision Neck: supple, FROM, trachea midline Chest: no-tender to palpation Heart: RRR, normal S1/S2, no murmurs/rubs/gallops, pulses present Lungs: CTAB, no respiratory distress, good air movement Abdomen: soft, non-tender, bowel sounds present, no masses/distention -Abdomen: mildly distened Musculoskeletal: normal structure, normal tone, ROM grossly normal Skin: capillary refill <2 seconds Heme/Lymphatic: no purpura, no petechia Psychiatric: normal mood and affect, good judgment and insight, intact recent and remote memory Additional comment: rectal exam: no active bleeding, external hemorrhoids, no masses palpated FMR H&P: Results - Labs Result Diagrams: 09/01/18 00:16 08/31/18 18:32 Lab results: WBC 3.4 thou/uL (4.8-10.8) L 08/31/18 18:32 Hgb 14.7 g/dL (12.0-16.0) 08/31/18 18:32 Hct 43.1 % (36.0-47.0) 08/31/18 18:32 MCV 103.0 fL (78.0-98.0) H 08/31/18 18:32 Plt Count 79 thou/uL (130-400) L 08/31/18 18:32 Neutrophils % 60.3 % (42.0-75.0) 08/31/18 18:32 Sodium 139 mmol/L (136-145) 08/31/18 18:32 Potassium 3.7 mmol/L (3.5-5.1) 08/31/18 18:32 Chloride 103 mmol/L (98-107) 08/31/18 18:32 Carbon Dioxide 28 mmol/L (22-29) 08/31/18 18:32 BUN 5 mg/dL (9.8-20.1) L 08/31/18 18:32 Creatinine 0.92 mg/dL (0.6-1.1) 08/31/18 18:32 Glucose 70 mg/dL (70-105) 08/31/18 18:32 Calcium 9.8 mg/dL (7.8-10.44) 08/31/18 18:32 Total Bilirubin 0.5 mg/dL (0.2-1.2) 08/31/18 18:32 AST 42 U/L (5-34) H 08/31/18 18:32 ALT 34 U/L (8-55) 08/31/18 18:32 Alkaline Phosphatase 80 U/L (40-150) 08/31/18 18:32 Serum Total Protein 8.7 g/dL (6.0-8.3) H 08/31/18 18:32 Albumin 4.2 g/dL (3.5-5.0) 08/31/18 18:32 Lipase 55 U/L (8-78) 08/31/18 18:32 Urine Ketones Negative mg/dL (Negative) 08/31/18 18:50 Urine Blood Negative (Negative) 08/31/18 18:50 Urine Nitrite Negative (Negative) 08/31/18 18:50 Ur Leukocyte Esterase Negative (Negative) 08/31/18 18:50 - Radiology Interpretation Chest x-ray Status: report reviewed by ar FMR H&P: A/P - Problem List (1) GI bleed Current Visit: Yes Status: Acute Code(s): K92.2 - GASTROINTESTINAL HEMORRHAGE, UNSPECIFIED (2) Anemia Current Visit: No Status: Acute Code(s): D64.9 - ANEMIA, UNSPECIFIED (3) Cirrhosis Current Visit: No Status: Acute Code(s): K74.60 - UNSPECIFIED CIRRHOSIS OF LIVER (4) Elevated INR Current Visit: No Status: Acute Code(s): R79.1 - ABNORMAL COAGULATION PROFILE (5) HLD (hyperlipidemia) Current Visit: No Status: Acute Code(s): E78.5 - HYPERLIPIDEMIA, UNSPECIFIED (6) HTN (hypertension) Current Visit: No Status: Acute Code(s): I10 - ESSENTIAL (PRIMARY) HYPERTENSION (7) Hepatitis C Current Visit: No Status: Acute Code(s): B19.20 - UNSPECIFIED VIRAL HEPATITIS C WITHOUT HEPATIC COMA (8) Thrombocytopenia Current Visit: No Status: Acute Code(s): D69.6 - THROMBOCYTOPENIA, UNSPECIFIED - Plan 58 yo F with cirrhosis admitted for GI bleed Acute GI bleed, likely lower -Passed clots, FOBT+, no active bleeding on rectal exam, presence of external hemorrhoids -ddx: diverticulosis vs. angiodysplasia vs. external hemorrhoid bleeding vs. colon cancer -bleeding likely complicated by thrombocytopenia, cirrhosis -upper GI bleed less likely- hemo stable, no melena -no PRBC required, Hb 14, not tachycardic -will trend H/H and monitor for active bleeding. 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 slaughter FMR H&P: Upper Level - Pertinent history 58 y/o PT with cirrhosis presenting after passing several clots AK today. Hx/o in June 2018 of duodenal ulcers and bleeding, but was on anticoagulation at that point and has since stopped anticoagulation. Pt reports feeling weak and with decreased appetite as well. Denies fevers, chills, SOB, chest pain. Sp 1L IVF in ED. Is a smoker 2pk/day. - Plan Date/Time: 08/31/182017 I, Tim Lion, have evaluated this patient and agree with findings/plan as outlined by fashion intern resident. Pertinent changes/additions are listed here. 58 y/o F with Cirrhosis admitted for GI Bleed. 1. Acute GI Bleed - Essentially passed several clots this AM. Did have pos FOBT , but no blood in rectal vault. Placed on IV PPI and now NPO. Hb14.1, Hct 43.1. Benign abdominal exam. Consider GI consult in AM. No history of esophageal varicies on EGD around 1.5 months ago, but did have duodenal ulcers present then. 2. Cirrhosis - 2/2 ETOH with hx/o treated Hep C. 3. HTN - No acute issues. 4. HLD - Holding staitin 5. Hx/o Hep C; s/p treatment 6. Thrombocytopenia - Likely 2/2 hepatic failure and splenic sequestration. Addendum - Attending - Attending Attestation Date/Time: 09/01/18 [id number] I personally evaluated the patient and discussed the management with Dr. Yo. I agree with the History, Examination, Assessment and Plan documented above with any addition or exceptions noted below.
[2018-08-31] MEDS ORDERED: Ondansetron PF 4 MG/2 ML Vial IVP PRN (21:33)
[2018-08-31] MEDS ORDERED: Ondansetron ODT 4 MG TAB PO PRN (21:33)
[2018-08-31] MEDS ORDERED: Ondansetron ODT 4 MG TAB SL PRN (21:33)
[2018-08-31] MEDS ORDERED: Sodium Chloride 0.9% 1,000 ML IV SCH (21:45)
[2018-08-31] MEDS ORDERED: Pantoprazole 80 MG, Admixture Fee 1 EACH in Sodium Chloride 0.9% 100 ML IVP SCH (21:45)
[2018-08-31 21:49] LABS: Iron 76 ug/dL (50-170); Iron Binding Capacity, Total 274 mcg/dL (265-497)
[2018-08-31] MEDS ORDERED: Nicotine 14 MG PATCH TD SCH (22:00)
[2018-09-01 00:26] LABS: Hemoglobin 13.2 g/dL (12.0-16.0)
--- NOTE | 2018-09-01 06:48 | PDOC.FM ---
- Subjective Subjective: Ms. Harvey says she feels well. Has not had any blood per rectum since one episode prior to admission. No BM since then too. - Objective Vital Signs & Weight: Vital Signs (12 hours) Temp Pulse Resp BP Pulse Ox 09/01/18 04:15 98.3 F 74 18 130/57 L 98 09/01/18 00:30 98.3 F 94 20 126/63 99 Weight Weight 63.5 kg Result Diagrams: 09/01/18 07:57 09/01/18 07:57 Phys Exam - Physical Examination Constitutional: NAD Respiratory: no wheezing, clear to auscultation bilateral Cardiovascular: RRR, no significant murmur Gastrointestinal: soft, no distention, positive bowel sounds Musculoskeletal: no edema Neurological: moves all 4 limbs Dx/Plan (1) GI bleed Code(s): K92.2 - GASTROINTESTINAL HEMORRHAGE, UNSPECIFIED Status: Acute (2) Anemia Code(s): D64.9 - ANEMIA, UNSPECIFIED Status: Acute (3) Cirrhosis Code(s): K74.60 - UNSPECIFIED CIRRHOSIS OF LIVER Status: Acute (4) Elevated INR Code(s): R79.1 - ABNORMAL COAGULATION PROFILE Status: Acute (5) HLD (hyperlipidemia) Code(s): E78.5 - HYPERLIPIDEMIA, UNSPECIFIED Status: Acute (6) HTN (hypertension) Code(s): I10 - ESSENTIAL (PRIMARY) HYPERTENSION Status: Acute (7) Hepatitis C Code(s): B19.20 - UNSPECIFIED VIRAL HEPATITIS C WITHOUT HEPATIC COMA Status: Acute (8) Thrombocytopenia Code(s): D69.6 - THROMBOCYTOPENIA, UNSPECIFIED Status: Acute - Plan Plan: 58 yo F with cirrhosis admitted for GI bleed Acute GI bleed, likely lower -Passed clots, FOBT+, no active bleeding on rectal exam, presence of external hemorrhoids -bleeding likely complicated by thrombocytopenia, cirrhosis -upper GI bleed less likely- No history of esophageal varicies on EGD around 1.5 months ago, but did have duodenal ulcers present then -VSS, no change in Hgb this am compared to prior -IV protonix BID Thrombocytopenia - pt has hx cirrhosis, alcohol use and s/p Hep C treatment -Meld 10, <2% 90 day mortality COPD - continue home regimen - duoneb prn HTN -home meds HLD -home meds Hep C s/p treatment Hx of alcohol abuse -Last drink >1 yr ago Tobacco abuse -nicotine patch -career counselor on cessation dvt ppx: c/i due to active bleed gi ppx: protonix dispo: likely d/c home today with outpatient GI follow up with Dr. Stover Addendum - Attending - Attending Attestation Date/Time: 09/01/18 1001 I personally evaluated the patient and discussed the management with Dr. Muñoz. I agree with the History, Examination, Assessment and Plan documented above with any addition or exceptions noted below. The patient's hemoglobin is stable. She has had no new bleeding. Will d/c home and f/u with GI as an outpt.
[2018-09-01 08:08] VITALS: BP 118/64; TEMP 98.7
[2018-09-01 08:10] LABS: #Lymphocytes 1.1 thou/uL (1.20-3.40); #Monocytes 0.2 thou/uL (0.11-0.59); #Neutrophils 1.3 thou/uL (1.40-6.50); %Basophils 0.1 % (0.0-1.0); %Eosinophils 1.5 % (0.0-10.0); %Lymphocytes 42.2 % (21.0-51.0); %Monocytes 6.2 % (0.0-10.0); Hemoglobin 13.5 g/dL (12.0-16.0); Mean Corpuscular HGB CONC 33.2 g/dL (32.0-36.0); Mean Platelet Volume 8.6 fL (7.4-10.4); Platelet Count 80 thou/uL (130-400); RBC Distribution Width 13.5 % (11.5-14.5); Red Blood Cell (RBC) Count 3.97 mill/uL (4.20-5.40); White Blood Cell (WBC) Count 2.6 thou/uL (4.8-10.8)
[2018-09-01 08:25] LABS: ALT (SGPT) 26 U/L (8-55); AST (SGOT) 33 U/L (5-34); Albumin 3.7 g/dL (3.5-5.0); Alkaline Phosphatase 69 U/L (40-150); Anion Gap 10 mmol/L (10-20); BUN (Urea Nitrogen) 7 mg/dL (9.8-20.1); Bilirubin, Total 0.6 mg/dL (0.2-1.2); Calc. Creatinine Clearance 79 mL/min (70-130); Calcium 9.4 mg/dL (7.8-10.44); Carbon Dioxide 26 mmol/L (22-29); Chloride 106 mmol/L (98-107); Estimated GFR-MDRD 74; Globulin 4.2 g/dL (2.4-3.5); Glucose 86 mg/dL (70-105); Potassium 3.7 mmol/L (3.5-5.1); Protein, Total 7.9 g/dL (6.0-8.3); Sodium 138 mmol/L (136-145)
[2018-09-01 08:30] LABS: MDiff Complete? YES; Macrocytosis SLIGHT = 6-15 cells (100X) (0-5/hpf); Platelet Morphology Comment Appears Decreased
[2018-09-01] MEDS ORDERED: Pantoprazole 40 MG VIAL IVP SCH (09:00)
--- NOTE | 2018-09-02 13:22 | DIS ---
DATE OF ADMISSION: 08/31/2018 DATE OF DISCHARGE: 09/01/2018 RESIDENT: Donna Muñoz DO ADMITTING ATTENDING: Luis Cortez MD DISCHARGE ATTENDING: Angie Mccray MD CONSULTS: None. PROCEDURES: Chest x-ray on 08/31/2018, showed no acute cardiopulmonary process. PRIMARY DIAGNOSES: 1. Bright red blood per rectum. 2. Thrombocytopenia. SECONDARY DIAGNOSES: 1. Chronic obstructive pulmonary disease. 2. Hypertension. 3. Hyperlipidemia. 4. Hepatitis C, status post treatment. 5. History of alcohol abuse. 6. Tobacco abuse. DISCHARGE MEDICATIONS: Continue current home medications as taking, no changes. 1. Pravastatin 20 mg p.o. at bedtime. 2. Albuterol (Ventolin inhaler) 1 puff inhaled daily. 3. Estradiol 1 mg p.o. daily. 4. Nortriptyline 25 mg p.o. at bedtime. 5. Tetracycline 500 mg p.o. b.i.d. 6. Vitamin B12 of 1000 mcg p.o. daily. 7. Benadryl 25 mg p.o. q.6 hours p.r.n. 8. Tylenol 650 mg p.o. q.6 hours p.r.n. 9. Dulcolax 10 mg p.o. daily. 10. Ferrous sulfate 325 mg p.o. b.i.d. 11. Folic acid 1 mg p.o. daily. 12. Pantoprazole 40 mg p.o. b.i.d. 13. Potassium chloride 20 mEq p.o. q.a.m. HISTORY OF PRESENT ILLNESS: A 58-year-old female with past medical history of cirrhosis, thrombocytopenia, and recent upper GI bleed requiring hospitalization in June 2018, requiring multiple units of transfusion of blood, presented with a chief complaint of passing 3 dark red clots and a bowel movement at home. No liquid blood had passed. This was a one time event. The patient was admitted with concern for recurrent GI bleed considering history. FOBT was positive, but on rectal exam, there was no active bleeding and there was the presence of external hemorrhoids noted. No melena. Hemoglobin was stable at 13 to 14 throughout hospitalization. The patient was hemodynamically stable, and Protonix IV was started. During hospitalization, the patient has not had any other bloody bowel movements. Her hemoglobin remained stable and there were not any signs of acute active bleeding. The patient had recently seen Dr. Stover GI in the outpatient setting several weeks prior for followup from previous hospitalization. This was discussed with the patient and she was discharged home in stable condition with plan to follow up with Dr. Stover in the outpatient setting. She has had multiple scopes and a colonoscopy within the past year. DISPOSITION: Stable. DISCHARGE INSTRUCTIONS: 1. Location: Home. 2. Diet: Regular. 3. Activity: As tolerated. 4. Followup: Follow up with Dr. Stover in 1 week and PCP, Dr. Ariel Bolton in 1 week. Job ID: [id number]
--- NOTE | 2018-09-03 00:41 | PDOC.FPRHP ---
- History of Present Illness History of Present Illness: Of note pt was hospitalizaed in Jun for active for hematemesis requiring 3 PRBCs. Underwent EGD showing gastric erosions but no ulcers, hypertensive gastropathy. Pt was also hospitalized about a week ago and discharged on 09/01 for blood per rectum but was found to have hemmorhoids on exam. - Allergies/Adverse Reactions Allergies Allergy/AdvReac Type Severity Reaction Status Date / Time codeine Allergy Verified 07/05/18 23:39 Iodine and Iodide Containing Allergy Verified 07/05/18 23:40 Produc - Home Medications Medication Instructions Recorded Confirmed Type Acetaminophen [Tylenol Arthritis] 650 mg PO Q6HR PRN 07/06/18 07/06/18 History Albuterol Sulfate [Ventolin HFA] 1 puff INH DAILY 07/06/18 07/06/18 History Cyanocobalamin (Vitamin B-12) 1,000 mcg PO DAILY 07/06/18 07/06/18 History [Vitamin B12] Estradiol [Estrace] 1 mg PO DAILY 07/06/18 07/06/18 History Nortriptyline HCl 25 mg PO HS 07/06/18 07/06/18 History Pravastatin Sodium 20 mg PO HS 07/06/18 07/06/18 History Tetracycline HCl 500 mg PO BID 07/06/18 07/06/18 History diphenhydrAMINE [Benadryl] 25 mg PO Q6HR PRN 07/06/18 07/06/18 History Bisacodyl [Dulcolax] 10 mg PO DAILY 30 Days #30 tab 07/08/18 Rx Cyanocobalamin (Vitamin B-12) 1,000 mcg PO DAILY 30 Days #30 tab 07/08/18 Rx [Vitamin B-12] Ferrous Sulfate [Feosol] 325 mg PO BID-WM 30 Days #60 tab 07/08/18 Rx Folic Acid [Folvite] 1 mg PO DAILY 30 Days #30 tab 07/08/18 Rx Pantoprazole [Protonix] 40 mg PO BID 30 Days #60 tab 07/08/18 Rx Potassium Chloride [K-Dur] 20 meq PO QAM-WM 14 Days #14 tab 07/08/18 Rx - History PMHx: Hx of UGIB, HTN, heart problems, asthma, COPD, HLD, insomnia, Hep C treated, Cirrhosis, Elevated INR, HLD, Tobacco abuse, Marijuana abuse PSHx: hysterectomy, Csx, BTL, foot surgery for tumors in feet, knee surgery for trauma FHx: CAD, ovarian/uterine CA, HTN Social: 2PPD x45yrs, former etoh abuse (last drink 1 yr ago), marijuana use - Vital signs BP: [] HR: [] RR: [] Tmax: [] Pox: []% on [] Wt: [] FMR H&P: Results - Labs Result Diagrams: 09/01/18 07:57 09/01/18 07:57 Lab results: WBC 2.6 thou/uL (4.8-10.8) L 09/01/18 07:57 Hgb 13.5 g/dL (12.0-16.0) 09/01/18 07:57 Hct 40.6 % (36.0-47.0) 09/01/18 07:57 MCV 102.0 fL (78.0-98.0) H 09/01/18 07:57 Plt Count 80 thou/uL (130-400) L 09/01/18 07:57 Neutrophils % 50.0 % (42.0-75.0) 09/01/18 07:57 Sodium 138 mmol/L (136-145) 09/01/18 07:57 Potassium 3.7 mmol/L (3.5-5.1) 09/01/18 07:57 Chloride 106 mmol/L (98-107) 09/01/18 07:57 Carbon Dioxide 26 mmol/L (22-29) 09/01/18 07:57 BUN 7 mg/dL (9.8-20.1) L 09/01/18 07:57 Creatinine 0.80 mg/dL (0.6-1.1) 09/01/18 07:57 Glucose 86 mg/dL (70-105) 09/01/18 07:57 Calcium 9.4 mg/dL (7.8-10.44) 09/01/18 07:57 Total Bilirubin 0.6 mg/dL (0.2-1.2) 09/01/18 07:57 AST 33 U/L (5-34) 09/01/18 07:57 ALT 26 U/L (8-55) 09/01/18 07:57 Alkaline Phosphatase 69 U/L (40-150) 09/01/18 07:57 Serum Total Protein 7.9 g/dL (6.0-8.3) 09/01/18 07:57 Albumin 3.7 g/dL (3.5-5.0) 09/01/18 07:57 Lipase 55 U/L (8-78) 08/31/18 18:32 Urine Ketones Negative mg/dL (Negative) 08/31/18 18:50 Urine Blood Negative (Negative) 08/31/18 18:50 Urine Nitrite Negative (Negative) 08/31/18 18:50 Ur Leukocyte Esterase Negative (Negative) 08/31/18 18:50 FMR H&P: Upper Level - Plan Date/Time: 09/03/18 0040 I, [], have evaluated this patient and agree with findings/plan as outlined by campus interviews intern resident. Pertinent changes/additions are listed here.
== END 2018-09-01 11:45 | disposition home or self-care (01) ==
LOC: ERS 17:33 → ERHOLD 19:19 → 3SE 09-01 00:37
PROVIDERS: ADMIT Family Medicine; ATTEND Family Medicine
DX: K92.1 Melena (principal); D69.6 Thrombocytopenia, unspecified; I10 Essential (primary) hypertension; J44.9 Chronic obstructive pulmonary disease, unspecified; E78.5 Hyperlipidemia, unspecified; F17.210 Nicotine dependence, cigarettes, uncomplicated
CPT/HCPCS: 36415; 71045; 80053; 81003; 82274; 82378; 82728; 83540; 83550; 83690; 84484; 85025; 85610; 85730; 86850; 86900; 86901; 93005; 94640; 96361; 96374; 96376; C9113; G0378; J7050; J7620

== ENCOUNTER 2018-09-02 18:43 | Observation (INO) | payer MEDICARE, MEDICAID ==
[2018-09-02] MEDS ORDERED: Pantoprazole 40 MG VIAL IVP SCH (19:15)
[2018-09-02 19:16] LABS: Hemoglobin 16.1 g/dL (12.0-16.0); Mean Corpuscular HGB CONC 32.6 g/dL (32.0-36.0); Mean Platelet Volume 8.4 fL (7.4-10.4); Platelet Count 81 thou/uL (130-400); RBC Distribution Width 13.5 % (11.5-14.5); Red Blood Cell (RBC) Count 4.74 mill/uL (4.20-5.40); White Blood Cell (WBC) Count 4.4 thou/uL (4.8-10.8)
[2018-09-02 19:32] LABS: Band 17 % (5-11); Lymphocytes 5 % (21-51); Monocytes 3 % (0-10); Neutrophil 75 % (42-75); Platelet Morphology Comment Appears Decreased
[2018-09-02 19:33] LABS: ALT (SGPT) 36 U/L (8-55); AST (SGOT) 46 U/L (5-34); Acetaminophen Less than 6.0 mcg/mL (10.0-30.0); Albumin 4.5 g/dL (3.5-5.0); Alcohol Less than 10 mg/dL (Less than 10); Alkaline Phosphatase 85 U/L (40-150); Anion Gap 13 mmol/L (10-20); BUN (Urea Nitrogen) 9 mg/dL (9.8-20.1); Bilirubin, Total 1.3 mg/dL (0.2-1.2); Calc. Creatinine Clearance 0 mL/min (70-130); Calcium 10.2 mg/dL (7.8-10.44); Carbon Dioxide 24 mmol/L (22-29); Chloride 105 mmol/L (98-107); Estimated GFR-MDRD 66; Globulin 5.3 g/dL (2.4-3.5); Glucose 121 mg/dL (70-105); MDiff Complete? YES; Potassium 4.1 mmol/L (3.5-5.1); Protein, Total 9.8 g/dL (6.0-8.3); Salicylate Less than 8.0 mg/dL (15.0-30.0); Sodium 138 mmol/L (136-145)
[2018-09-02 20:37] LABS: Bilirubin Small (Negative); Blood, Urine Negative (Negative); Clarity CLOUDY (Clear); Glucose, Urine (Dipstick) Negative (Negative); Leukocyte Trace (Negative); Nitrite Negative (Negative); Protein, Urine (Dipstick) Negative (Neg-Trace); Specific Gravity, Urine 1.019 (1.002-1.036); pH, Urine 5.5 (5.0-9.0)
[2018-09-02 20:40] LABS: Bacteria/HPF None Seen HPF (None Seen); Pathc Cast-AUWi Flag 3.77 (0-2.49); WBC/HPF 0-3 HPF (0-3)
[2018-09-02 20:43] LABS: Medtox Control Line Valid? VALID (VALID); Medtox Reader # READER 1
[2018-09-02 20:44] LABS: Amphetamine Not Detected (NotDetected); Barbiturates Screen Not Detected (NotDetected); Benzodiazepine Screen Not Detected (NotDetected); Cocaine Metabolite Screen Not Detected (NotDetected); Methadone Not Detected (NotDetected); Methamphetamine Not Detected (NotDetected); Opiate Screen Not Detected (NotDetected); Oxycodone Screen Not Detected (NotDetected); Phencyclidine (PCP) Not Detected (NotDetected); THC/Cannabinoid Screen Detected (NotDetected); Tricyclic Screen Detected (NotDetected)
[2018-09-02] MEDS ORDERED: Ondansetron PF 4 MG/2 ML Vial ONE (20:44)
[2018-09-02 20:49] LABS: Hyaline Casts/LPF 0-3 HYALINE CAST LPF (0-3 Hyaline)
[2018-09-02 21:02] LABS: INR-International Normal Ratio 1.3; PTT 33.8 SEC (22.9-36.1); Prothrombin Time 15.9 SEC (12.0-14.7)
--- NOTE | 2018-09-02 21:47 | RAD ---
CHEST ONE VIEW ABDOMEN TWO VIEWS 09/02/18 HISTORY: Abdominal pain. Evaluate for free air. FINDINGS: ONE VIEW CHEST: Normal cardiac silhouette. Pulmonary vessels and hilum are normal. Costophrenic angles are clear. No consolidation or mass. No pneumothorax or osseous abnormalities. TWO VIEWS ABDOMEN: Nonspecific bowel gas pattern. No bowel distention or dilatation. No differential air fluid levels. N o suspicious densities in the abdomen or pelvis. No pneumoperitoneum on the upright projection. There does appear to be hepatosplenomegaly. IMPRESSION: 1. No acute cardiopulmonary process. 2. No pneumoperitoneum. POS: [facility]
--- NOTE | 2018-09-02 22:18 | ULT ---
RIGHT UPPER QUADRANT ULTRASOUND: 09/02/18 HISTORY: Pain. vomiting. COMPARISON: 07/06/18. TECHNIQUE: Utilizing a multihertz transducer, sonographic imaging of the right upper quadrant is performed in t he longitudinal and transverse plane. Suboptimal evaluation of the pancreas. There is nodularity to the hepatic parenchyma likely due to ci rrhotic change. There is increased echogenicity of the liver which may be due to hepatic steatosis or hepatocellular disease. Limited evaluation for hepatic masses and intrahepatic biliary dilatation. R ight hepatic lobe measures 18.9 cm. Main portal vein is patent. Appropriate directional flow. There i s right renal cortical thinning. No hydronephrosis. Right kidney measures 3.8 x 10.9 x 4.0 cm. There is sonographic evidence of cholelithiasis. There is evidence of pericholecystic fluid. Gallbladder w all is thickened measuring 0.6 cm. Positive Prado's sign. Common bile duct diameter is 0.5 cm. IMPRESSION: Sonographic evidence of cholelithiasis. There is sonographic evidence of cholecystitis. Correlate cli nically. POS: [facility]
[2018-09-03] MEDS ORDERED: Ondansetron PF 4 MG/2 ML Vial ONE ×2 (00:37→10:04)
--- NOTE | 2018-09-03 00:50 | PDOC.FPRHP ---
- History of Present Illness Chief Complaint: nausea/vomiting History of Present Illness: 58yo F with pmh of etoh and hepC cirrhosis with Hx of UGIB presents with 1 day hx of vomiting. Nausea and vomiting started friday morning. No changes in diet or suspected causes of nausea. Pt reports that 2 times her vomit possibly had some minimal pink streaking in it. She denies fevers or chills. Denies current melena or hematochezia. Pt also reports she has abdominal pain on mvmt and palpation. Of note pt was hospitalizaed in Jun for active for hematemesis requiring 3 PRBCs. Underwent EGD showing gastric erosions but no ulcers, hypertensive gastropathy. Pt was also hospitalized about a week ago and discharged on 09/01 for blood per rectum but was found to have hemorrhoids on exam. ED Course: protonix, zofran, NS 2.5 L - Allergies/Adverse Reactions Allergies Allergy/AdvReac Type Severity Reaction Status Date / Time codeine Allergy Verified 07/05/18 23:39 Iodine and Iodide Containing Allergy Verified 07/05/18 23:40 Produc - Home Medications Medication Instructions Recorded Confirmed Type Acetaminophen [Tylenol Arthritis] 650 mg PO Q6HR PRN 07/06/18 09/03/18 History Albuterol Sulfate [Ventolin HFA] 1 puff INH DAILY 07/06/18 09/03/18 History Cyanocobalamin (Vitamin B-12) 1,000 mcg PO DAILY 07/06/18 09/03/18 History [Vitamin B12] Estradiol [Estrace] 1 mg PO DAILY 07/06/18 09/03/18 History Nortriptyline HCl 25 mg PO HS 07/06/18 09/03/18 History Pravastatin Sodium 20 mg PO HS 07/06/18 09/03/18 History Tetracycline HCl 500 mg PO BID 07/06/18 09/03/18 History diphenhydrAMINE [Benadryl] 25 mg PO Q6HR PRN 07/06/18 09/03/18 History Bisacodyl [Dulcolax] 10 mg PO DAILY 30 Days #30 tab 07/08/18 09/03/18 Rx Cyanocobalamin (Vitamin B-12) 1,000 mcg PO DAILY 30 Days #30 tab 07/08/18 Rx [Vitamin B-12] Ferrous Sulfate [Feosol] 325 mg PO BID-WM 30 Days #60 tab 07/08/18 09/03/18 Rx Folic Acid [Folvite] 1 mg PO DAILY 30 Days #30 tab 07/08/18 09/03/18 Rx Pantoprazole [Protonix] 40 mg PO BID 30 Days #60 tab 07/08/18 09/03/18 Rx Potassium Chloride [K-Dur] 20 meq PO QAM-WM 14 Days #14 tab 07/08/18 09/03/18 Rx - History PMHx: Hx of UGIB, HTN, COPD, HLD, insomnia, Hep C treated, Cirrhosis, HLD PSHx: hysterectomy, Csx, BTL, foot surgery for tumors in feet, knee surgery for trauma FHx: CAD, ovarian/uterine CA, HTN Social: 2PPD x45yrs, former etoh abuse (last drink 1 yr ago), marijuana use - Review of Systems General: denies: fever/chills, fatigue Eyes: denies: eye pain, vision changes ENT: denies: nasal congestion, rhinorrhea Respiratory: denies: cough, congestion Cardiovascular: denies: chest pain, palpitation Gastrointestinal: reports: nausea, vomiting, abdominal pain Genitourinary: denies: incontinence, dysuria Skin: denies: rashes, lesions Musculoskeletal: denies: pain, tenderness Neurological: denies: numbness, syncope Psychological: reports: anxiety. denies: depression - Vital signs BP: [107/60] HR: [102] RR: [18] Tmax: [98.4] Pox: [100]% on [ra] Wt: [61kg] - Physical Exam Constitutional: awake, alert and oriented, other (moderate distress) HEENT: normocephalic and atraumatic, EOMI, grossly normal vision, grossly normal hearing Neck: supple, trachea midline Chest: no-tender to palpation Heart: RRR, normal S1/S2 Lungs: CTAB, no respiratory distress Abdomen: soft -Abdomen: diffuse TTP with concentration in RUQ Musculoskeletal: normal structure, normal tone Neurological: no focal deficit, normal sensation Skin: no rash/lesions, good turgor Heme/Lymphatic: no unusual bruising or bleeding, no purpura Psychiatric: normal mood and affect, good judgment and insight FMR H&P: Results - Labs Result Diagrams: 09/03/18 03:25 09/03/18 03:25 Lab results: WBC 4.4 thou/uL (4.8-10.8) L 09/02/18 19:00 Hgb 16.1 g/dL (12.0-16.0) H 09/02/18 19:00 Hct 49.5 % (36.0-47.0) H 09/02/18 19:00 MCV 104.0 fL (78.0-98.0) H 09/02/18 19:00 Plt Count 81 thou/uL (130-400) L 09/02/18 19:00 Band Neuts % (Manual) 17 % (5-11) H 09/02/18 19:00 Sodium 138 mmol/L (136-145) 09/02/18 19:00 Potassium 4.1 mmol/L (3.5-5.1) 09/02/18 19:00 Chloride 105 mmol/L (98-107) 09/02/18 19:00 Carbon Dioxide 24 mmol/L (22-29) 09/02/18 19:00 BUN 9 mg/dL (9.8-20.1) L 09/02/18 19:00 Creatinine 0.89 mg/dL (0.6-1.1) 09/02/18 19:00 Glucose 121 mg/dL (70-105) H 09/02/18 19:00 Calcium 10.2 mg/dL (7.8-10.44) 09/02/18 19:00 Total Bilirubin 1.3 mg/dL (0.2-1.2) H 09/02/18 19:00 AST 46 U/L (5-34) H 09/02/18 19:00 ALT 36 U/L (8-55) 09/02/18 19:00 Alkaline Phosphatase 85 U/L (40-150) 09/02/18 19:00 Serum Total Protein 9.8 g/dL (6.0-8.3) H 09/02/18 19:00 Albumin 4.5 g/dL (3.5-5.0) 09/02/18 19:00 Urine Ketones Negative mg/dL (Negative) 09/02/18 19:35 Urine Blood Negative (Negative) 09/02/18:35 Urine Nitrite Negative (Negative) 09/02/18 19:35 Ur Leukocyte Esterase Trace (Negative) H 09/02/18 19:35 Urine RBC 4-6 HPF (0-3) 09/02/18 19:35 Urine WBC 0-3 HPF (0-3) 09/02/18 19:35 Ur Squamous Epith Cells 11-20 HPF (0-3) H 09/02/18 19:35 Urine Bacteria None Seen HPF (None Seen) 09/02/18 19:35 FMR H&P: A/P - Problem List (1) Cholecystitis Current Visit: Yes Status: Acute Code(s): K81.9 - CHOLECYSTITIS, UNSPECIFIED (2) Intractable nausea and vomiting Current Visit: Yes Status: Acute Code(s): R11.2 - NAUSEA WITH VOMITING, UNSPECIFIED (3) Cirrhosis Current Visit: No Status: Acute Code(s): K74.60 - UNSPECIFIED CIRRHOSIS OF LIVER (4) HLD (hyperlipidemia) Current Visit: No Status: Acute Code(s): E78.5 - HYPERLIPIDEMIA, UNSPECIFIED (5) HTN (hypertension) Current Visit: No Status: Acute Code(s): I10 - ESSENTIAL (PRIMARY) HYPERTENSION (6) Hepatitis C Current Visit: No Status: Acute Code(s): B19.20 - UNSPECIFIED VIRAL HEPATITIS C WITHOUT HEPATIC COMA (7) Thrombocytopenia Current Visit: No Status: Acute Code(s): D69.6 - THROMBOCYTOPENIA, UNSPECIFIED - Plan Acute cholecystitis with Intractable N/V A- RUQ US showing pericholecystic fluid and gall bladder wall thickening, positive US knight sign and RUQ tenderness on exam. P- pt is NPO for sugical consult in AM - LR 150ml/hr - admit to tele - Zofran prn for control of vomiting Elevated transaminases and hyper bilirubinemia A- likely 2/2 cholecystitis and local inflamation possible due to passage of stone vs local inflammation P- check direct bili Thrombocytopenia A- likely 2/2 to liver disease. stable P- monitor HTN -home meds COPD -home meds HLD -home meds Hx of HepC -MD aware Cirrhosis -MD aware Diet: NPO PPx: SCD due to recent hx of GIB CODE: FULL Dispo: obs, tele FMR H&P: Upper Level - Pertinent history 58 yo WF PMH cirrhosis 2/2 hepatitis C, HTN, HLD, and COPD. Presents with 18 hour history of nausea, vomiting, and epigastric/right upper quadrant pain. Stated symptoms started shortly after she ate breakfast which included chicken this morning. Was discharged on 09/01 after one episode of BRBPR that spontaneously resolved. States she had some pink tinged streaks in her vomit. Associated symptoms include diarrhea per ER record. Patient did not endorse diarrhea to admitting team. During exam, patient vomited twice which appeared dark green in color. ER: labs, EKG, abdominal series, RUQ US, NS x2.5L, zofran, protonix. - Pertinent findings Vitals: Pulse 110, otherwise WNL GEN: appears uncomfortable, appropriately interactive CV: Tachcardic, regular, no murmur Pulm: CTA-B Abd: RUQ tenderness no peritoneal signs Labs: WBC 4.4, Bands 17%, AST 46, T bili 1.3, platelets 81 Abdominal series: No acute processes RUQ US: pericholecystic fluid, gallbladder wall thickening EKG: Sinus tachycardia - Plan Date/Time: 09/03/18 0050 I, Aly Mejia MD, have evaluated this patient and agree with findings/plan as outlined by human resource internship resident. Pertinent changes/additions are listed here. 1. Acute cholecystitis: NPO, IV LR at 150mL/hr, Tele monitoring, call general surgery in the morning, zofran/phenegran PRN 2. Intractable N/V 2/2 #1: see plan above 3. Elevated AST: possible due to passage of stone vs local inflammation 4. Hyperbilirubinemia: check direct bili 5. Thrombocytopenia: stable 6. Cirrhosis: Stable 7. Volume depletion: IV fluids 8. Diet: NPO 9. PPx: SCD 10. CODE: FULL Dispo: obs, tele, <[address] Mccray. Addendum - Attending - Attending Attestation Date/Time: 09/03/18 611 I personally evaluated the patient and discussed the management with Dr. Fischer. I agree with the History, Examination, Assessment and Plan documented above with any addition or exceptions noted below. The patient presents with nausea vomiting and ruq pain that began a day after her recent discharge. U/s is consistent with cholecystitis. Surgery has been consulted and she will have a lap bala.
[2018-09-03] MEDS ORDERED: Ondansetron ODT 4 MG TAB PO PRN (03:17)
[2018-09-03] MEDS ORDERED: Ondansetron PF 4 MG/2 ML Vial IVP PRN (03:17)
[2018-09-03 03:41] LABS: #Lymphocytes 0.3 thou/uL (1.20-3.40); #Monocytes 0.1 thou/uL (0.11-0.59); #Neutrophils 1.6 thou/uL (1.40-6.50); %Basophils 0.3 % (0.0-1.0); %Eosinophils 0.9 % (0.0-10.0); %Lymphocytes 14.5 % (21.0-51.0); %Monocytes 6.6 % (0.0-10.0); %Neutrophils 77.8 % (42.0-75.0); Hemoglobin 12.9 g/dL (12.0-16.0); Mean Corpuscular HGB CONC 33.1 g/dL (32.0-36.0); Mean Corpuscular Hemoglobin 34.7 pg (27.0-31.0); Mean Platelet Volume 8.2 fL (7.4-10.4); Platelet Count 66 thou/uL (130-400); RBC Distribution Width 13.5 % (11.5-14.5); Red Blood Cell (RBC) Count 3.71 mill/uL (4.20-5.40)
[2018-09-03 04:06] LABS: Anion Gap 11 mmol/L (10-20); BUN (Urea Nitrogen) 9 mg/dL (9.8-20.1); Calc. Creatinine Clearance 0 mL/min (70-130); Calcium 8.5 mg/dL (7.8-10.44); Carbon Dioxide 24 mmol/L (22-29); Chloride 109 mmol/L (98-107); Estimated GFR-MDRD 71; Glucose 115 mg/dL (70-105); Potassium 3.8 mmol/L (3.5-5.1); Sodium 140 mmol/L (136-145)
[2018-09-03] MEDS: Ferrous Sulfate 325 MG TAB PO SCH ×2 (08:00→17:00)
[2018-09-03] MEDS: PROVENTIL INHALER 6.7 G (200 INHALATIONS) INH SCH (08:09)
--- NOTE | 2018-09-03 10:00 | CON ---
DATE OF CONSULTATION: 09/03/2018 REQUESTING PHYSICIAN: Donna Muñoz M.D. HISTORY: This is a 58-year-old woman with history of hepatitis C, liver cirrhosis, who presented with insidious onset epigastric right upper quadrant abdominal pain associated with multiple episodes of nonbloody emesis. The patient was a walk-in with these symptoms. Her last meal was dinner last night consisting of chicken tenders. The patient denies any fevers or chills. She has not experienced this type of symptoms in the time passed. The patient was admitted in June with hematemesis requiring blood transfusion. Upper endoscopy revealed some gastric erosions. No discrete ulcers or varices. The patient was most recently discharged from the hospital 2 days ago following an admission to evaluate hematochezia, which was attributed to hemorrhoids. Currently, the patient denies any fevers or chills. PAST MEDICAL HISTORY: 1. Pertinent for essential hypertension. 2. Hepatitis C with liver cirrhosis. 3. COPD. 4. Thrombocytopenia. PAST SURGICAL HISTORY: Pertinent for total abdominal hysterectomy and in the distant past. FAMILY HISTORY: Pertinent for ovarian, uterine carcinoma, hypertension, and coronary artery disease. SOCIAL HISTORY: She is a greater than 40 pack-year cigarette smoker. She also indulges in marijuana. She denies any history of IV drug abuse. She is to drink alcohol heavily, but has not had any alcohol over the last one year. PRE-HOSPITAL MEDICATIONS: Includes: 1. Toprol-XL 100 mg p.o. daily. 2. Nortriptyline 25 mg p.o. daily. 3. Pravastatin 20 mg p.o. daily. 4. Estradiol 1 mg p.o. daily. 5. Albuterol inhalation p.r.n. 6. She denies taking aspirin, although aspirin is on her medical history. ALLERGIES: TO CODEINE AND IODINE. REVIEW OF SYSTEMS: A 10-point review of systems essentially unremarkable except as stated in past medical history and chief complaint. PHYSICAL EXAMINATION: GENERAL: This reveals a 58-year-old normally developed woman, who is otherwise coherent, interactive and appears stated age. The patient is alert and oriented x3, appears to be in no significant acute distress at time of my evaluation. VITAL SIGNS: Include blood pressure 122/73, pulse 115, respiratory rate is 22, temperature 98.1 degrees Fahrenheit, oxygen saturation 100% on room air. HEENT: Reveals normocephalic and atraumatic. Pupils are equal, round, reactive to light and accommodation. Extraocular muscles are intact bilaterally. No sclerae icterus present. HEART: Reveals regular rate with sinus tachycardia. No murmurs or gallops auscultated. LUNGS: Clear to auscultation bilaterally. Her breathing, regular and nonlabored. ABDOMEN: Soft with right upper quadrant tenderness to palpation. She has a positive Prado's sign. Liver and spleen otherwise nonpalpable below costal margin. She has a healed infraumbilical midline incision consistent with prior history of total abdominal hysterectomy. NEUROLOGIC: Reveals no focal deficits present. LABORATORY FINDINGS: Today include a CBC with 2000 white blood cells, hemoglobin and hematocrit 12.9 and 38.9 respectively. Platelet count is 66,000. Metabolic profile; sodium 140, potassium 3.8, chloride is 109, bicarb is 24, BUN is 9, creatinine 0.83, glucose is 115. I have personally reviewed the abdominal ultrasound, which shows intraluminal gallstones, thickened gallbladder wall with pericholecystic fluid. Also noted is common bile duct, which is normal in diameter for this patient's age at 4.5 mm. IMPRESSION: 1. Acute cholecystitis with cholelithiasis. 2. Hepatitis C liver cirrhosis. 3. Chronic thrombocytopenia. RECOMMENDATIONS: 1. Conservative management with bland diet in anticipation of resolution of this patient's symptomatology. 2. Electively, we can proceed with laparoscopic cholecystectomy. 3. The risk of laparoscopic cholecystectomy is to include but not limited to bleeding, infection, injury to bile duct or surrounding structures. 4. This information was provided to the patient in the presence of her nurse. 5. The patient wishes to proceed with laparoscopic cholecystectomy as she does not want to experience this type of pain that brought her to the emergency department again. 6. I have answered all her questions. The patient has granted consent for this surgical intervention. 7. 8. Thank you again, Dr. Muñzo, for allowing me the privilege pressure in the care of this patient at the present time I have answered their questions. Job ID: [id number]
[2018-09-03] MEDS ORDERED: diphenhydrAMINE 50 MG/ML VIAL ONE (10:04)
[2018-09-03] MEDS ORDERED: Metoclopramide HCl 10 MG/2 ML VIAL ONE (10:04)
[2018-09-03] MEDS ORDERED: Succinylcholine Chloride 20 MG/ML 10 ml SYRINGE FS ONE (10:04)
[2018-09-03] MEDS ORDERED: Glycopyrrolate 0.2 MG/ML 5 ML SYRINGE ONE (10:04)
[2018-09-03] MEDS ORDERED: Rocuronium Bromide 10 MG/ML (10ML VIAL) ONE (10:04)
[2018-09-03] MEDS ORDERED: Ketorolac Tromethamine 30 MG/ML VIAL ONE (10:04)
[2018-09-03] MEDS ORDERED: PROPOFOL 200 MG/20 ML VIAL ONE (10:04)
[2018-09-03] MEDS ORDERED: Dexamethasone 20 MG/5 ML VIAL ONE (10:04)
[2018-09-03] MEDS ORDERED: Lidocaine 1% PF 5 ML VIAL ONE (10:04)
[2018-09-03] MEDS: Lactated Ringer's 1,000 ML IV SCH ×4 (11:33→22:28)
[2018-09-03] MEDS: Cyanocobalamin (Vitamin B-12) 1,000 MCG TAB PO SCH (12:15)
[2018-09-03] MEDS: Potassium Chloride 20 MEQ TAB PO SCH (12:15)
[2018-09-03] MEDS: Bisacodyl 5 MG TAB PO SCH (12:15)
[2018-09-03] MEDS: Folic Acid 1 MG TAB PO SCH (12:16)
[2018-09-03] MEDS: Estradiol 1 MG TAB PO SCH (12:16)
[2018-09-03 12:27] VITALS: BMI 24.6
[2018-09-03] MEDS ORDERED: Bupivacaine/Epinephrine 0.25% 30 ML VIAL ONE (14:05)
[2018-09-03] MEDS ORDERED: Fentanyl 100 MCG/2 ML VIAL ONE ×3 (14:37→17:10)
[2018-09-03] MEDS ORDERED: Ketamine 50 MG/ML (10ML VIAL) ONE (15:12)
[2018-09-03] MEDS ORDERED: cefOXitin Sodium/Dextrose,Iso 2 GM in Premix Bag 1 BAG IVPB SCH (15:15)
[2018-09-03] MEDS ORDERED: HYDROmorphone 2 MG/ML VIAL SLOW IVP PRN (16:52)
[2018-09-03] MEDS ORDERED: PACU-Morphine 4MG/ML VIAL SLOW IVP PRN (16:52)
[2018-09-03] MEDS ORDERED: Morphine Sulfate 2 MG/ML SYRINGE SLOW IVP PRN (16:52)
[2018-09-03] MEDS ORDERED: Ondansetron HCl/PF 4 MG/2 ML Vial IVP PRN (16:52)
[2018-09-03] MEDS ORDERED: traMADol HCl 50 MG TAB PO PRN (17:08)
[2018-09-03] MEDS ORDERED: Acetaminophen 325 MG TAB PO PRN (17:13)
[2018-09-03] MEDS ORDERED: Nortriptyline HCl 25 MG CAP PO SCH (21:00)
[2018-09-03] MEDS ORDERED: Pravastatin Sodium 20 MG TAB PO SCH (21:00)
[2018-09-03] MEDS: Ibuprofen 100 MG/5 ML UDCUP PO SCH (22:24)
--- NOTE | 2018-09-03 23:30 | OP ---
DATE OF PROCEDURE: 09/03/2018 PREOPERATIVE DIAGNOSES: 1. Acute cholecystitis and cholelithiasis. 2. Hepatitis C, liver cirrhosis. POSTOPERATIVE DIAGNOSES: 1. Acute cholecystitis and cholelithiasis. 2. Hepatitis C, liver cirrhosis. OPERATION PERFORMED: Laparoscopic cholecystectomy. ANESTHESIA: General endotracheal. ESTIMATED BLOOD LOSS: 100 mL. FLUIDS GIVEN: 1000 mL crystalloids. COUNTS: Sponge and instrument counts were verified as correct x2. COMPLICATIONS: None apparent at the time of operation. INDICATIONS FOR OPERATION: A 58-year-old woman with history of hepatitis C, liver cirrhosis, and chronic thrombocytopenia, presented with recurrent epigastric right upper quadrant abdominal pain. Clinical radiographic examination was consistent with acute cholecystitis, cholelithiasis, for which the patient was brought to the operating room for cholecystectomy. Findings are consistent with gallbladder in the usual anatomic location completely encased by omental adhesions. Also noted is micronodular liver cirrhosis. DESCRIPTION OF PROCEDURE: Informed consent was obtained from the patient, she was brought to the operating room and placed in supine position. Following general anesthesia, abdomen was sterilely prepped and draped in usual fashion. The skin below the umbilicus was infiltrated with 0.25% Marcaine with epinephrine. A small curvilinear infraumbilical incision was made using an 11 scalpel. Umbilical stalk was grasped with a Andrew and elevated. A Veress needle was inserted through the incision and placed in the peritoneal cavity through which the abdomen was insufflated with 3 L of CO2 gas. Intraabdominal pressure noted at 1 mmHg. Following abdominal insufflation, Veress needle was removed and a 5 mm trocar introduced using the Visiport under laparoscopy. Laparoscopy confirmed proper placement of the port. No injuries to underlying structures. Additional laparoscopy reveals the right upper quadrant completely encased by omental adhesions obscuring the liver. Under direct laparoscopy, a 12 mm epigastric and two 5 mm right lateral subcostal ports were placed after the overlying skin was infiltrated with 0.25% Marcaine with epinephrine and appropriate incision was made. The patient was placed in a reverse Trendelenburg position, rotated to her left. I introduced a [place] dissector with cautery through the epigastric port site, attempted to use this to take down the omental adhesions. This was quite tenuous as there were visible varices of omental veins. I then decided to use LigaSure device to serially take down omental adhesions to expose the fundus of the gallbladder. A Prestige grasper introduced through the right lateral subcostal port grasping the fundus of the gallbladder which was elevated cephalad. Omental adhesions were sterilely taken down using LigaSure device, alternated with Miriam dissector with cautery. Omental adhesions were taken down from remainder of the gallbladder. The cystic duct was dissected free from surrounding structures and divided between clips. Two clips applied proximally, one clip at the junction of the cystic duct and gallbladder. Cystic artery dissected free from surrounding structures and divided between clips in a similar fashion. The gallbladder itself was removed from the liver bed using cautery with good hemostasis. Operative site was inspected for good hemostasis. Note that due to venous oozing at onset of the case, with full knowledge of the patient's history of chronic thrombocytopenia, we did transfuse her with one six pack of platelets. Once adequate hemostasis was confirmed in the operative site, fascia of the epigastric port was closed using 0 Vicryl suture and Endoclosure device under laparoscopy. Abdomen was desufflated. All ports and instruments removed and accounted for. Skin incisions were closed using 4-0 Monocryl suture in a subcuticular fashion. Dermabond was applied over incisional closure. The patient tolerated the operation without any apparent complication and was returned to recovery room in satisfactory condition. Job ID: [id number]
[2018-09-04 05:12] LABS: #Lymphocytes 0.4 thou/uL (1.20-3.40); #Monocytes 0.1 thou/uL (0.11-0.59); #Neutrophils 1.7 thou/uL (1.40-6.50); %Basophils 0.2 % (0.0-1.0); %Eosinophils 0.6 % (0.0-10.0); %Lymphocytes 16.4 % (21.0-51.0); %Monocytes 5.8 % (0.0-10.0); Hemoglobin 11.5 g/dL (12.0-16.0); Mean Corpuscular HGB CONC 33.8 g/dL (32.0-36.0); Mean Corpuscular Hemoglobin 35.2 pg (27.0-31.0); Mean Platelet Volume 8.8 fL (7.4-10.4); Platelet Count 63 thou/uL (130-400); RBC Distribution Width 13.3 % (11.5-14.5); Red Blood Cell (RBC) Count 3.27 mill/uL (4.20-5.40); White Blood Cell (WBC) Count 2.1 thou/uL (4.8-10.8)
[2018-09-04 05:32] LABS: ALT (SGPT) 26 U/L (8-55); AST (SGOT) 36 U/L (5-34); Alkaline Phosphatase 51 U/L (40-150); Anion Gap 11 mmol/L (10-20); BUN (Urea Nitrogen) 8 mg/dL (9.8-20.1); Bilirubin, Direct 0.3 mg/dL (0.1-0.3); Bilirubin, Total 0.4 mg/dL (0.2-1.2); Calc. Creatinine Clearance 88 mL/min (70-130); Calcium 8.4 mg/dL (7.8-10.44); Carbon Dioxide 23 mmol/L (22-29); Chloride 106 mmol/L (98-107); Estimated GFR-MDRD 79; Glucose 124 mg/dL (70-105); Potassium 3.9 mmol/L (3.5-5.1); Protein, Total 6.4 g/dL (6.0-8.3); Sodium 136 mmol/L (136-145)
--- NOTE | 2018-09-04 05:49 | PDOC.FM ---
- Subjective Subjective: Ms. Harvey report some discomfort particularly on R side of abdomen where she thinks there is a lump. Denies N/V. Has tolerated clear liquids and passed gassed. Ambulated to bathroom. - Objective Vital Signs & Weight: Vital Signs (12 hours) Temp Pulse Resp BP Pulse Ox 09/04/18 04:20 97.5 F L 81 20 113/72 95 09/03/18 23:23 98.2 F 82 15 139/70 95 09/03/18 19:54 98.0 F 91 18 157/70 H 96 09/03/18 17:50 97.4 F L 79 20 119/57 L 96 Weight Weight 67.495 kg I&O: 09/02/18 09/03/18 09/04/18 06:59 06:59 06:59 Output Total 200 Balance -200 Result Diagrams: 09/04/18 04:31 09/04/18 04:31 Phys Exam - Physical Examination Constitutional: NAD Respiratory: clear to auscultation bilateral Cardiovascular: RRR, no significant murmur Gastrointestinal: positive bowel sounds incisions clean and intact. Some superficial bruising. R side of abdomen slightly more protruded and tender Musculoskeletal: no edema, pulses present Neurological: non-focal Skin: normal turgor Dx/Plan (1) Cholecystitis Code(s): K81.9 - CHOLECYSTITIS, UNSPECIFIED Status: Acute (2) Intractable nausea and vomiting Code(s): R11.2 - NAUSEA WITH VOMITING, UNSPECIFIED Status: Acute (3) Anemia Code(s): D64.9 - ANEMIA, UNSPECIFIED Status: Acute (4) Cirrhosis Code(s): K74.60 - UNSPECIFIED CIRRHOSIS OF LIVER Status: Acute (5) Elevated INR Code(s): R79.1 - ABNORMAL COAGULATION PROFILE Status: Acute (6) HLD (hyperlipidemia) Code(s): E78.5 - HYPERLIPIDEMIA, UNSPECIFIED Status: Acute (7) HTN (hypertension) Code(s): I10 - ESSENTIAL (PRIMARY) HYPERTENSION Status: Acute (8) Hepatitis C Code(s): B19.20 - UNSPECIFIED VIRAL HEPATITIS C WITHOUT HEPATIC COMA Status: Acute (9) Leukocytosis Code(s): D72.829 - ELEVATED WHITE BLOOD CELL COUNT, UNSPECIFIED Status: Acute (10) Thrombocytopenia Code(s): D69.6 - THROMBOCYTOPENIA, UNSPECIFIED Status: Acute - Plan Plan: Acute cholecystitis with Intractable N/V - RUQ US showing pericholecystic fluid and gall bladder wall thickening, positive US knight sign and RUQ tenderness on exam. - POD1 s/p lap cholecystectomy. Appreciate recommendations from Dr. Reid today - per surg has tylenol, ibuprofen with tramadol prn for pain - N/V resolved. Advance diet as tolerated Anemia - Post op Hgb 12->11 Elevated transaminases and hyper bilirubinemia, improving - bilirubin normalized. AST trended down to 36. Leukopenia - WBC 4.4->2.1 - continue to monitor Thrombocytopenia - likely 2/2 to liver disease. Platelets stable in 60s. HTN -home meds COPD -home meds HLD -home meds Cirrhosis - with hx of Hep C and alcohol abuse Addendum - Attending - Attending Attestation Date/Time: 09/04/18 1016 I personally evaluated the patient and discussed the management with Dr. Muñoz. I agree with the History, Examination, Assessment and Plan documented above with any addition or exceptions noted below. The patient is doing well following surgery. She has seen Dr. Reid this morning and is cleared for discharge. She notes the swelling is decreased around incision.
[2018-09-04] MEDS: Lactated Ringer's 1,000 ML IV SCH (05:53)
[2018-09-04] MEDS: Ibuprofen 100 MG/5 ML UDCUP PO SCH (05:54)
[2018-09-04 08:18] VITALS: TEMP 97.6
[2018-09-04] MEDS ORDERED: Nicotine 21 MG PATCH TD SCH (09:00)
[2018-09-04] MEDS: Ferrous Sulfate 325 MG TAB PO SCH (09:50)
[2018-09-04] MEDS: Cyanocobalamin (Vitamin B-12) 1,000 MCG TAB PO SCH (09:50)
[2018-09-04] MEDS: Bisacodyl 5 MG TAB PO SCH (09:50)
[2018-09-04] MEDS: Potassium Chloride 20 MEQ TAB PO SCH (09:50)
[2018-09-04] MEDS: Folic Acid 1 MG TAB PO SCH (09:50)
[2018-09-04] MEDS: Estradiol 1 MG TAB PO SCH (09:50)
--- NOTE | 2018-09-04 10:48 | PRG ---
DATE OF SERVICE: SUBJECTIVE: Ms. Harvey is a 58-year-old woman, who is postop day #1, status post laparoscopic cholecystectomy. She is awake and alert, reports adequate pain control. She tolerates general diet. She is passing flatus. OBJECTIVE: VITAL SIGNS: Vital signs this morning include blood pressure of 112/60, pulse of 71, respiratory rate of 16, temperature of 97.6 degrees Fahrenheit, and oxygen saturation of 98% on room air. HEENT: Pupils equal, round, and reactive to light and accommodation. She has no sclerae icterus present. HEART: Regular rate and rhythm. No murmurs or gallops auscultated. LUNGS: Clear to auscultation bilaterally. Her breathing is regular and nonlabored. ABDOMEN: Soft and nondistended. All incisions remain intact, clean, and dry. There is some swelling in the subcutaneous position of the right lateral subcostal port consistent with subcutaneous hematoma. This is not expanding according to the patient. In fact, she thinks it has been decreasing in size since yesterday. She clearly has no peritoneal signs on examination. NEUROLOGIC: No focal deficits present. LABORATORY FINDINGS: Today include a CBC with 2100 white blood cells, hemoglobin and hematocrit of 11.5 and 34.0 respectively. Platelet count is 63,000. Metabolic profile; sodium is 136, potassium is 3.9, chloride is 106, bicarb is 23, BUN is 8, creatinine is 0.76, and glucose is 124. Total bilirubin is 0.4, AST and ALT are 36 and 26 respectively. IMPRESSION: 1. Postop day #1 status post laparoscopic cholecystectomy. 2. Acute blood loss anemia. 3. Stable chronic thrombocytopenia. PLAN: 1. Increase activity as tolerated. 2. The patient is certainly stable from surgical standpoint, may be discharged home at the discretion of the primary service. 3. She may follow up with me in the Surgery Clinic in 2 weeks. Job ID: [id number]
[2018-09-04] MEDS: PROVENTIL INHALER 6.7 G (200 INHALATIONS) INH SCH (11:12)
[2018-09-04 12:13] VITALS: BP 130/60
--- NOTE | 2018-09-05 03:59 | DIS ---
DATE OF ADMISSION: 09/02/2018 DATE OF DISCHARGE: 09/04/2018 RESIDENT: Donna Muñoz DO ADMITTING ATTENDING: Angie Mccray MD DISCHARGE ATTENDING: Angie Mccray MD CONSULTS: General Surgery, Dr. Reid. PROCEDURES: 1. On 09/03/2018, laparoscopic cholecystectomy. 2. On 09/02/2018, abdominal ultrasound showing sonographic evidence of cholelithiasis and cholecystitis. PRIMARY DIAGNOSES: 1. Acute cholecystitis, status post laparoscopic cholecystectomy. 2. Elevated AST and hyperbilirubinemia. SECONDARY DIAGNOSES: 1. Leukopenia. 2. Anemia. 3. Thrombocytopenia. 4. Hypertension. 5. Chronic obstructive pulmonary disease. 6. Hyperlipidemia. 7. Cirrhosis with history of hepatitis C and alcohol abuse. DISCHARGE MEDICATIONS: 1. Pravastatin 20 mg p.o. at bedtime. 2. Albuterol 1 puff inhaled daily. 3. Estradiol 1 mg p.o. daily. 4. Nortriptyline 25 mg p.o. at bedtime. 5. Tetracyclines 500 mg p.o. b.i.d. 6. Benadryl 25 mg p.o. q.6 hours p.r.n. 7. Acetaminophen 650 mg p.o. q.6 hours p.r.n. 8. Dulcolax 10 mg p.o. daily. 9. Vitamin B12 1000 mcg p.o. daily. 10. Ferrous sulfate 325 mg p.o. b.i.d. 11. Folic acid 1 mg p.o. daily. 12. Pantoprazole 40 mg p.o. b.i.d. 13. Potassium chloride 20 mEq p.o. q.a.m. with meals. DISCONTINUED MEDICATIONS: None. HISTORY OF PRESENT ILLNESS: A 58-year-old female presented with 1 day history of nausea and vomiting associated with abdominal pain. She was admitted on this a.m. A right upper quadrant ultrasound showed cholelithiasis with gallbladder wall thickening and positive Prado sign. The patient was admitted for this acute cholecystitis and General Surgery was consulted in the morning. Of note, the patient's AST and total indirect bilirubin were elevated at time of admission, however, these all trended down during hospitalization. The patient underwent laparoscopic cholecystectomy without any postoperative complications. On postoperative day #1, the patient was stable for discharge home with discharge hemoglobin of 11.5. Otherwise, other labs appeared to be near baseline. The patient is to follow up with General Surgery in 2 weeks. At time of discharge, the patient was able to tolerate p.o. intake and was ambulating well. DISPOSITION: Stable. DISCHARGE INSTRUCTIONS: LOCATION: Home. DIET: Regular. ACTIVITY: As tolerated. FOLLOWUP: 1. Follow up with PCP in 1 week. 2. Follow up with Dr. Reid, General Surgery in 2 weeks. Job ID: [id number]
--- NOTE | 2018-09-05 23:35 | EKG ---
Test Reason : Blood Pressure : / mmHG Vent. Rate : 113 BPM Atrial Rate : 113 BPM P-R Int : 132 ms QRS Dur : 074 ms QT Int : 332 ms P-R-T Axes : 056 044 048 degrees QTc Int : 455 ms Sinus tachycardia Otherwise normal ECG Confirmed by THOMAS DUGGAN MD ([id number]), pictures editor HARPREET JARRELL ([id number]) on 09/05/2018 11:35:17 PM Referred By: Confirmed By:THOMAS DUGGAN MD
== END 2018-09-04 13:35 | disposition home or self-care (01) ==
LOC: ERS 18:43 → ERHOLD 23:20 → 2SW 09-03 12:14
PROVIDERS: ADMIT Family Medicine; ATTEND Family Medicine
PROC: 0FT44ZZ Resection of Gallbladder, Percutaneous Endoscopic Approach (ICD-10-PCS; principal; 2018-09-03)
DX: K80.12 Calculus of gallbladder with acute and chronic cholecystitis without obstruction (principal); B17.10 Acute hepatitis C without hepatic coma; K74.60 Unspecified cirrhosis of liver; E80.6 Other disorders of bilirubin metabolism; I10 Essential (primary) hypertension; J44.9 Chronic obstructive pulmonary disease, unspecified; E78.5 Hyperlipidemia, unspecified; G47.00 Insomnia, unspecified; F10.11 Alcohol abuse, in remission; F17.210 Nicotine dependence, cigarettes, uncomplicated; D69.6 Thrombocytopenia, unspecified; E86.9 Volume depletion, unspecified; R79.1 Abnormal coagulation profile; D72.829 Elevated white blood cell count, unspecified; D62 Acute posthemorrhagic anemia; Z79.899 Other long term (current) drug therapy; Z88.5 Allergy status to narcotic agent; Z91.041 Radiographic dye allergy status
CPT/HCPCS: 36430; 47562; 74022; 76705; 80048 ×2; 80053; 80076; 80306; 80307; 82248; 83690; 84484; 85025 ×3; 85610; 85730; 86850; 86900; 86901; 88304; 93005; 94640 ×2; 96361 ×3; 96374; 96375; 96376; 97139; 99285; G0378 ×2; P9035; 36415; 81003; 81015; C9113; J1100; J1200; J1885; J2001; J2405; J2704; J2765; J3010

== ENCOUNTER 2018-09-11 13:16 | Outpatient (CLI) | payer MEDICARE, MEDICAID ==
--- NOTE | 2018-09-11 14:58 | ULT ---
VENOUS DOPPLER ULTRASOUND OF THE RIGHT LOWER EXTREMITY: Date: 09/11/18 HISTORY: Right lower extremity edema. TECHNIQUE: Marcelo scale ultrasound with color flow and spectral Doppler imaging of the deep venous system of the r ight lower extremity was performed. FINDINGS: There is good flow, compression, and augmentation noted in the right common femoral, femoral, deep fe moral, popliteal, posterior tibial, and greater saphenous veins. IMPRESSION: No evidence of deep venous thrombosis in the right lower extremity. POS: [facility]
== END 2018-09-11 13:17 | disposition home or self-care (01) ==
LOC: ULT 13:16
PROVIDERS: ATTEND Surgery
DX: R60.9 Edema, unspecified (principal)

== ENCOUNTER 2018-09-21 14:39 | Outpatient (CLI) | payer MEDICARE, MEDICAID ==
--- NOTE | 2018-09-21 15:32 | RAD ---
TWO VIEW ABDOMEN: HISTORY: Abdominal pain with constipation. FINDINGS: Diaphragms are not included on the upright view. Therefore, free intraperitoneal cannot be completel y excluded on this study. Post cholecystectomy clips are noted. The bowel gas pattern is unremarkable. IMPRESSION: Unremarkable bowel gas pattern. Diaphragms are not shown on the upright view and intraperitoneal air cannot be assessed. POS: [facility]
== END 2018-09-21 14:40 | disposition home or self-care (01) ==
LOC: RAD 14:39
PROVIDERS: ATTEND Physician Assistant
DX: K59.00 Constipation, unspecified (principal); Z90.49 Acquired absence of other specified parts of digestive tract
CPT/HCPCS: 74019

== ENCOUNTER 2018-10-01 07:48 | Day surgery (SDC) | payer MEDICARE, MEDICAID ==
[2018-09-30 13:04] VITALS: BMI 26.1
[2018-10-01] MEDS ORDERED: Sodium Bicarbonate 2.5 MEQ/5 ML VIAL ONE (08:32)
[2018-10-01 10:56] LABS: Fluid, Bilirubin Total 0.5 mg/dL (Not Available)
[2018-10-01 11:11] LABS: BF Color Yellow; Body Fluid Source Ascites Body Fluid; Clarity Hazy (Clear); Tube # EDTA
[2018-10-01 11:12] LABS: WBC/NonHematic-Auto 1710 /cumm
--- NOTE | 2018-10-01 11:13 | ULT ---
ULTRASOUND GUIDED PARACENTESIS: Date: 10/01/18 HISTORY: Ascites. COMPARISON: None. FINDINGS: Successful ultrasound guided paracentesis. A total of 3,100 mL of yellow-colored ascites was aspirate d. No immediate or postprocedure complication. TECHNIQUE: Consent obtained to perform an ultrasound guided paracentesis. The patient's abdomen was evaluated. T he right lower quadrant was deemed appropriate. Skin was prepped and draped in the sterile fashion. 1 % lidocaine, buffered with sodium bicarbonate, was used for local anesthesia. Under ultrasound guidan ce, a 7 cm 5 Iraqi Yueh catheter was advanced into the peritoneal space. Via vacuum bottles, a total of 3,100 mL of yellow-colored ascites was aspirated. The patient tolerated the procedure well. No im mediate or postprocedure complications. IMPRESSION: Successful ultrasound guided paracentesis. POS: [facility]
[2018-10-01 11:22] LABS: BF RBC Count - Manual 695 /cumm
[2018-10-01 11:45] LABS: BF Segmented Neutrophils 4 %; Cell Count Non Hematic 5 %; Lymphocytes 91 %
[2018-10-01 13:09] VITALS: BP 120/71; TEMP 97.8
== END 2018-10-01 09:35 | disposition home or self-care (01) ==
LOC: ULT 07:48
PROVIDERS: ATTEND Physician Assistant Medical
PROC: 0W9G3ZX Drainage of Peritoneal Cavity, Percutaneous Approach, Diagnostic (ICD-10-PCS; principal; 2018-10-01)
DX: K74.60 Unspecified cirrhosis of liver (principal); R18.8 Other ascites; K31.89 Other diseases of stomach and duodenum; B95.7 Other staphylococcus as the cause of diseases classified elsewhere; I10 Essential (primary) hypertension; J44.9 Chronic obstructive pulmonary disease, unspecified; K21.9 Gastro-esophageal reflux disease without esophagitis; M19.90 Unspecified osteoarthritis, unspecified site; E78.00 Pure hypercholesterolemia, unspecified; Z79.899 Other long term (current) drug therapy; Z88.5 Allergy status to narcotic agent; Z91.041 Radiographic dye allergy status
CPT/HCPCS: 49083; 82042; 82247; 82945; 84157; 85060; 87070; 87077; 87186; 87205; 89051

== ENCOUNTER 2018-10-06 09:19 | Day surgery (SDC) | payer MEDICARE, MEDICAID ==
[2018-10-05 15:25] VITALS: BMI 26.1
[2018-10-06 09:47] LABS: Hemoglobin 15.5 g/dL (12.0-16.0); Mean Corpuscular HGB CONC 33.7 g/dL (32.0-36.0); Mean Corpuscular Hemoglobin 34.4 pg (27.0-31.0); Mean Platelet Volume 8.9 fL (7.4-10.4); Platelet Count 88 thou/uL (130-400); RBC Distribution Width 13.2 % (11.5-14.5); White Blood Cell (WBC) Count 5.7 thou/uL (4.8-10.8)
[2018-10-06 10:04] LABS: ALT (SGPT) 13 U/L (8-55); AST (SGOT) 31 U/L (5-34); Albumin 3.6 g/dL (3.5-5.0); Alkaline Phosphatase 65 U/L (40-150); Anion Gap 11 mmol/L (10-20); BUN (Urea Nitrogen) 5 mg/dL (9.8-20.1); Bilirubin, Total 0.9 mg/dL (0.2-1.2); Calc. Creatinine Clearance 76 mL/min (70-130); Calcium 9.2 mg/dL (7.8-10.44); Carbon Dioxide 28 mmol/L (22-29); Chloride 94 mmol/L (98-107); Estimated GFR-MDRD 65; Globulin 4.2 g/dL (2.4-3.5); Glucose 115 mg/dL (70-105); Potassium 3.6 mmol/L (3.5-5.1); Protein, Total 7.8 g/dL (6.0-8.3); Sodium 129 mmol/L (136-145)
[2018-10-06 11:27] VITALS: BP 107/64; TEMP 97.7
--- NOTE | 2018-10-06 11:58 | ULT ---
Ultrasound-guided paracentesis: HISTORY: Symptomatic ascites FINDINGS: Informed consent obtained prior to the procedure. Preprocedural imaging demonstrated signif icant ascites throughout the abdomen and pelvis. Right lower quadrant prepped and draped in normal sterile fashion and anesthetized with 1% buffered l idocaine. With direct sonographic guidance, 20-gauge spinal needle is advanced into the ascites and removal of the stylet yielded yellow fluid. 20 cc were removed. The patient tolerated the procedure well. No pos tprocedural complications. IMPRESSION: Successful ultrasound-guided paracentesis yielding 20 cc of yellow ascites. The specimen was sent to laboratory for further evaluation, as clinically requested. Results are pend ing.
[2018-10-06 12:35] LABS: BF Color Yellow; Body Fluid Source Ascites Body Fluid; Clarity Hazy (Clear); Tube # EDTA
[2018-10-06 12:36] LABS: RBC Background Count 0.004; WBC/NonHematic-Auto 3040 /cumm
[2018-10-06 12:47] LABS: BF RBC Count - Manual 1775 /cumm
[2018-10-06 12:50] LABS: BF Segmented Neutrophils 5 %
[2018-10-06 12:51] LABS: Cell Count Non Hematic 20 %; Lymphocytes 75 %
== END 2018-10-06 11:05 | disposition home or self-care (01) ==
LOC: ULT 09:19
PROVIDERS: ATTEND Radiology Diagnostic Radiology
PROC: 0W9G3ZX Drainage of Peritoneal Cavity, Percutaneous Approach, Diagnostic (ICD-10-PCS; principal; 2018-10-06)
DX: R18.8 Other ascites (principal); K74.60 Unspecified cirrhosis of liver; I10 Essential (primary) hypertension; M19.90 Unspecified osteoarthritis, unspecified site; E78.00 Pure hypercholesterolemia, unspecified; F10.10 Alcohol abuse, uncomplicated; F12.10 Cannabis abuse, uncomplicated; J44.9 Chronic obstructive pulmonary disease, unspecified; F41.9 Anxiety disorder, unspecified; F32.9 Major depressive disorder, single episode, unspecified; D69.6 Thrombocytopenia, unspecified; D64.9 Anemia, unspecified; Z90.710 Acquired absence of both cervix and uterus; Z98.51 Tubal ligation status; Z88.5 Allergy status to narcotic agent; Z91.041 Radiographic dye allergy status; Z88.8 Allergy status to other drugs, medicaments and biological substances; Z90.49 Acquired absence of other specified parts of digestive tract; Z79.899 Other long term (current) drug therapy; Z98.890 Other specified postprocedural states
CPT/HCPCS: 49083; 80053; 85027; 85060; 86480; 87070; 87205; 88112; 88305; 89051

== ENCOUNTER 2018-11-02 12:27 | Outpatient (CLI) | payer MEDICARE, MEDICAID ==
--- NOTE | 2018-11-02 14:03 | NM ---
NUCLEAR MEDICINE HIDA SCAN: CLINICAL HISTORY: Abdominal pain, status post cholecystectomy RADIOPHARMACEUTICAL: 5.4 mCi technetium 99m mebrofenin IV. FINDINGS: There is homogeneous distribution of radiotracer throughout the hepatic parenchyma. Gallbladder is no nvisualized, correlative history of prior cholecystectomy. Activity is seen within biliary system and bowel. There is no bile leak evident by scintigraphic evaluation. IMPRESSION: 1. Status post cholecystectomy. 2. No bile leak is evident, scintigraphically. Transcribed Date/Time: 11/02/2018 2:13 PM
== END 2018-11-02 12:28 | disposition home or self-care (01) ==
LOC: NM 12:27
PROVIDERS: ATTEND Internal Medicine
DX: K74.60 Unspecified cirrhosis of liver (principal); R10.11 Right upper quadrant pain; G89.18 Other acute postprocedural pain; R18.8 Other ascites; Z90.49 Acquired absence of other specified parts of digestive tract
CPT/HCPCS: 78226; A9537

== ENCOUNTER 2018-11-19 12:04 | Outpatient (CLI) | payer MEDICARE, MEDICAID ==
--- NOTE | 2018-11-19 14:20 | MRI ---
MRI OF THE ABDOMEN WITHOUT AND WITH CONTRAST 11/19/18 HISTORY: Severe abdominal swelling and right sided abdominal pain with diarrhea. Right upper quadrant abdomina l pain. TECHNIQUE: Multiplanar and multisequence MRI images were obtained of the abdomen without and with IV contrast. [employer] images were performed. FINDINGS: The liver is cirrhotic in appearance. There is a large amount of ascites throughout the peritoneal ca vity. The spleen is enlarged measuring 18.7 cm in length. No biliary dilatation is seen. No suspiciou s liver masses are appreciated. The gallbladder is not seen and may have been removed. There is a nonenhancing focus of high T2 signa l in the left kidney which likely represents a simple cyst. The adrenal glands and pancreas are unrem arkable. No abdominal adenopathy is seen. No marrow signal abnormality is seen. IMPRESSION: 1. Cirrhosis without suspicious liver lesions. 2. Splenomegaly. 3. Large ascites. 4. Left renal cyst. POS: [facility]
== END 2018-11-19 12:05 | disposition home or self-care (01) ==
LOC: BICMRI 12:04
PROVIDERS: ATTEND Physician Assistant Medical
DX: K74.60 Unspecified cirrhosis of liver (principal); R18.8 Other ascites; R10.11 Right upper quadrant pain; G89.18 Other acute postprocedural pain; R19.7 Diarrhea, unspecified; R16.1 Splenomegaly, not elsewhere classified; N28.1 Cyst of kidney, acquired
CPT/HCPCS: 74183; 82565

== ENCOUNTER 2018-12-04 06:46 | Day surgery (SDC) | payer MEDICARE, MEDICAID ==
[2018-12-03 14:23] VITALS: BMI 24.9
[2018-12-04 07:17] LABS: INR-International Normal Ratio 1.4; PTT 34.5 SEC (22.9-36.1); Prothrombin Time 17.3 SEC (12.0-14.7)
[2018-12-04 07:36] VITALS: BP 112/70; TEMP 97.8
[2018-12-04] MEDS ORDERED: Sodium Bicarbonate 2.5 MEQ/5 ML VIAL ONE (07:38)
[2018-12-04 08:06] LABS: #Eosinphils 0.1 thou/uL (0.0-0.7); #Lymphocytes 1.4 thou/uL (1.20-3.40); #Monocytes 0.4 thou/uL (0.11-0.59); #Neutrophils 3.9 thou/uL (1.40-6.50); %Basophils 0.5 % (0.0-1.0); %Lymphocytes 23.4 % (21.0-51.0); %Monocytes 7.4 % (0.0-10.0); %Neutrophils 66.8 % (42.0-75.0); Hemoglobin 14.4 g/dL (12.0-16.0); MDiff Complete? YES; Macrocytosis SLIGHT = 6-15 cells (100X) (0-5/hpf); Mean Corpuscular HGB CONC 34.7 g/dL (32.0-36.0); Mean Corpuscular Hemoglobin 34.6 pg (27.0-31.0); Mean Corpuscular Volume 99.6 fL (78.0-98.0); Platelet Count 99 thou/uL (130-400); Platelet Morphology Comment Appears Decreased; RBC Distribution Width 12.5 % (11.5-14.5); Red Blood Cell (RBC) Count 4.16 mill/uL (4.20-5.40); White Blood Cell (WBC) Count 5.8 thou/uL (4.8-10.8)
--- NOTE | 2018-12-04 10:58 | ULT ---
Ultrasound-guided paracentesis: HISTORY: Symptomatic ascites FINDINGS: Informed consent obtained prior to the procedure. Preprocedural imaging demonstrated signif icant ascites throughout the abdomen and pelvis. Right lower quadrant prepped and draped in normal sterile fashion and anesthetized with 1% buffered l idocaine. With direct sonographic guidance, 5 Macedonian Yueh catheter is advanced into the ascites and removal of the stylet yielded yellow fluid. 5 L were removed. The patient tolerated the procedure well. No postprocedural complications. IMPRESSION: Successful ultrasound-guided paracentesis yielding 5 L of yellow ascites.
== END 2018-12-04 08:55 | disposition home or self-care (01) ==
LOC: ULT 06:46
PROVIDERS: ATTEND Internal Medicine
PROC: 0W9G3ZZ Drainage of Peritoneal Cavity, Percutaneous Approach (ICD-10-PCS; principal; 2018-12-04)
DX: K74.60 Unspecified cirrhosis of liver (principal); R18.8 Other ascites; J44.9 Chronic obstructive pulmonary disease, unspecified; I10 Essential (primary) hypertension; F41.9 Anxiety disorder, unspecified; F32.9 Major depressive disorder, single episode, unspecified; F17.200 Nicotine dependence, unspecified, uncomplicated; E78.00 Pure hypercholesterolemia, unspecified; F10.10 Alcohol abuse, uncomplicated; M19.90 Unspecified osteoarthritis, unspecified site; Z79.899 Other long term (current) drug therapy; Z88.5 Allergy status to narcotic agent; Z91.041 Radiographic dye allergy status
CPT/HCPCS: 49083; 85025; 85610; 85730

== ENCOUNTER 2019-01-11 09:56 | Day surgery (SDC) | payer MEDICARE, MEDICAID ==
[2019-01-08 15:47] VITALS: BMI 26.1
[2019-01-11 11:35] VITALS: BP 97/61; TEMP 97.6
--- NOTE | 2019-01-11 11:51 | ULT ---
Sonographic guided paracentesis HISTORY: Recurrent ascites. Symptomatic. FINDINGS: After explaining the procedure and answering all questions, sonographic survey shows large amount of free fluid. Sterile technique, buffered local anesthesia, sonographic guidance, and a right lower quadrant approach were used to carefully advance a 19-gauge Yueh needle and catheter into the free fluid. Catheter was left to drain a total volume of 3.7 L clear jasmin liquid. Minimal fluid remains. Cathete r was removed. Patient tolerated the procedure well and was dismissed in unchanged condition. IMPRESSION: Technically successful sonographic guided paracentesis.
== END 2019-01-11 11:20 | disposition home or self-care (01) ==
LOC: ULT 09:56
PROVIDERS: ATTEND Internal Medicine
PROC: 0W9G30Z Drainage of Peritoneal Cavity with Drainage Device, Percutaneous Approach (ICD-10-PCS; principal; 2019-01-11)
DX: K74.60 Unspecified cirrhosis of liver (principal); R18.8 Other ascites; I10 Essential (primary) hypertension; J44.9 Chronic obstructive pulmonary disease, unspecified; F41.9 Anxiety disorder, unspecified; F32.9 Major depressive disorder, single episode, unspecified; E78.5 Hyperlipidemia, unspecified; E78.00 Pure hypercholesterolemia, unspecified; F10.10 Alcohol abuse, uncomplicated; M19.90 Unspecified osteoarthritis, unspecified site; D69.6 Thrombocytopenia, unspecified; D64.9 Anemia, unspecified; F17.290 Nicotine dependence, other tobacco product, uncomplicated; Z88.5 Allergy status to narcotic agent; Z91.041 Radiographic dye allergy status; Z79.899 Other long term (current) drug therapy
CPT/HCPCS: 49083

== ENCOUNTER 2019-02-22 10:21 | Day surgery (SDC) | payer MEDICARE, MEDICAID ==
[2019-02-19 15:56] VITALS: BMI 26.1
[2019-02-22 10:39] LABS: #Basophils 0.1 thou/uL (0.0-0.2); #Eosinphils 0.1 thou/uL (0.0-0.7); #Lymphocytes 0.8 thou/uL (1.20-3.40); #Monocytes 0.4 thou/uL (0.11-0.59); #Neutrophils 3.8 thou/uL (1.40-6.50); %Lymphocytes 15.8 % (21.0-51.0); %Monocytes 6.9 % (0.0-10.0); %Neutrophils 74.3 % (42.0-75.0); Hemoglobin 14.2 g/dL (12.0-16.0); Mean Corpuscular HGB CONC 35.1 g/dL (32.0-36.0); Mean Corpuscular Hemoglobin 35.9 pg (27.0-31.0); Mean Platelet Volume 7.8 fL (7.4-10.4); Platelet Count 110 thou/uL (130-400); RBC Distribution Width 11.9 % (11.5-14.5); Red Blood Cell (RBC) Count 3.95 mill/uL (4.20-5.40); White Blood Cell (WBC) Count 5.1 thou/uL (4.8-10.8)
[2019-02-22 10:40] LABS: INR-International Normal Ratio 1.2; PTT 34.4 SEC (22.9-36.1); Prothrombin Time 15.6 SEC (12.0-14.7)
--- NOTE | 2019-02-22 12:59 | ULT ---
Exam: Ultrasound guided paracentesis HISTORY: Ascites COMPARISON: 01/11/2019 FINDINGS: Successful ultrasound-guided paracentesis. Total of 4800 mL of dark yellow ascites was aspi rated. TECHNIQUE: Consent obtained reformatory ultrasound-guided paracentesis. Right lower quadrant was deem ed appropriate. Skin was prepped and draped in a sterile fashion. 1% lidocaine, buffered with sodium bicarbonate was used for local anesthesia. Under ultrasound guidance, a 5 Austrian 7 cm Yueh cat heter is advanced in the peritoneal space. A total of 4800 mL of dark yellow ascites was aspirated. No immediate or postprocedural complications IMPRESSION: Successful ultrasound-guided paracentesis.
[2019-02-22 17:51] VITALS: BP 92/64; TEMP 97.5
== END 2019-02-22 12:15 | disposition home or self-care (01) ==
LOC: ULT 10:21
PROVIDERS: ATTEND Internal Medicine
PROC: 0W9G3ZZ Drainage of Peritoneal Cavity, Percutaneous Approach (ICD-10-PCS; principal; 2019-02-22)
DX: K74.60 Unspecified cirrhosis of liver (principal); R18.8 Other ascites; I25.2 Old myocardial infarction; K21.9 Gastro-esophageal reflux disease without esophagitis; I10 Essential (primary) hypertension; F41.9 Anxiety disorder, unspecified; F32.9 Major depressive disorder, single episode, unspecified; J44.9 Chronic obstructive pulmonary disease, unspecified; M19.90 Unspecified osteoarthritis, unspecified site; E78.00 Pure hypercholesterolemia, unspecified; Z79.899 Other long term (current) drug therapy; Z88.5 Allergy status to narcotic agent; Z91.041 Radiographic dye allergy status
CPT/HCPCS: 36415; 49083; 85025; 85610; 85730

== ENCOUNTER 2019-03-22 10:30 | Day surgery (SDC) | payer MEDICARE, MEDICAID ==
[2019-03-22] MEDS ORDERED: Sodium Bicarbonate 2.5 MEQ/5 ML VIAL ONE (10:33)
--- NOTE | 2019-03-22 11:30 | ULT ---
PREPROCEDURE DIAGNOSIS: Ascites POST PROCEDURE DIAGNOSIS: Same PROCEDURE: Ultrasound-guided paracentesis FLAT BED KNITTER: [facility] ANESTHESIA: 6 mL of buffered 1% lidocaine. SPECIMEN: 3 L of straw-colored fluid TECHNIQUE: Prior to the procedure, the risks and benefits of an ultrasound guided paracentesis were explained to the patient which consented fully to the procedure. The area of the largest fluid collection was seen in the right mid abdomen. This area was prepped an d draped in the usual sterile fashion. Lidocaine was used to anesthetize the skin and soft tissues down towards the peritoneal cavity. The p eritoneum was anesthetized. A small skin incision was made for passage of the Staples needle and catheter. This device was then placed using ultrasound guidance into the peritoneal cavity. The needle was removed after return of fluid. The catheter was then connected to multiple Vacutainer bottles. A total of 3 L was removed. A minimal amount of residual fluid is seen in this region of the peritone al cavity. IMPRESSION: Status post successful ultrasound-guided paracentesis
[2019-03-22 14:17] VITALS: BMI 21.6
== END 2019-03-22 11:25 | disposition home or self-care (01) ==
LOC: ULT 10:30
PROVIDERS: ATTEND Internal Medicine
PROC: 0W9G3ZZ Drainage of Peritoneal Cavity, Percutaneous Approach (ICD-10-PCS; principal; 2019-03-22)
DX: K74.60 Unspecified cirrhosis of liver (principal); R18.8 Other ascites; I10 Essential (primary) hypertension; J44.9 Chronic obstructive pulmonary disease, unspecified; F41.9 Anxiety disorder, unspecified; F32.9 Major depressive disorder, single episode, unspecified; E78.5 Hyperlipidemia, unspecified; M19.90 Unspecified osteoarthritis, unspecified site; F10.11 Alcohol abuse, in remission; F12.11 Cannabis abuse, in remission; Z88.5 Allergy status to narcotic agent; Z91.041 Radiographic dye allergy status
CPT/HCPCS: 49083; 80053

== ENCOUNTER 2019-04-19 10:20 | Day surgery (SDC) | payer MEDICARE, MEDICAID ==
[2019-04-19 10:46] LABS: #Eosinphils 0.1 thou/uL (0.0-0.7); #Lymphocytes 0.8 thou/uL (1.20-3.40); #Monocytes 0.4 thou/uL (0.11-0.59); #Neutrophils 4.2 thou/uL (1.40-6.50); %Basophils 0.4 % (0.0-1.0); %Eosinophils 1.9 % (0.0-10.0); %Lymphocytes 13.5 % (21.0-51.0); %Monocytes 7.5 % (0.0-10.0); %Neutrophils 76.6 % (42.0-75.0); Hemoglobin 13.9 g/dL (12.0-16.0); Mean Corpuscular HGB CONC 35.3 g/dL (32.0-36.0); Mean Corpuscular Hemoglobin 35.5 pg (27.0-31.0); Mean Platelet Volume 7.4 fL (7.4-10.4); Platelet Count 112 thou/uL (130-400); RBC Distribution Width 11.8 % (11.5-14.5); Red Blood Cell (RBC) Count 3.91 mill/uL (4.20-5.40); White Blood Cell (WBC) Count 5.5 thou/uL (4.8-10.8)
[2019-04-19 10:50] LABS: INR-International Normal Ratio 1.2
[2019-04-19 12:20] VITALS: BMI 21.9
--- NOTE | 2019-04-19 13:13 | ULT ---
Exam: Ultrasound guided paracentesis HISTORY: Ascites COMPARISON: 03/22/2019 FINDINGS: Successful ultrasound-guided paracentesis. Total of 3000 mL of yellow ascites was aspirated . TECHNIQUE: Consent obtained reformatory ultrasound-guided paracentesis. Right lower quadrant was deem ed appropriate. Skin was prepped and draped in a sterile fashion. 1% lidocaine, buffered with sodium bicarbonate was used for local anesthesia. Under ultrasound guidance, a 5 Bengali 7 cm Yueh cat heter is advanced in the peritoneal space. A total of 3000 mL of yellow ascites was aspirated. No immediate or postprocedural complications IMPRESSION: Successful ultrasound-guided paracentesis.
== END 2019-04-19 12:15 | disposition home or self-care (01) ==
LOC: ULT 10:20
PROVIDERS: ATTEND Internal Medicine
PROC: 0W9G3ZZ Drainage of Peritoneal Cavity, Percutaneous Approach (ICD-10-PCS; principal; 2019-04-19)
DX: K74.60 Unspecified cirrhosis of liver (principal); R18.8 Other ascites; I10 Essential (primary) hypertension; J44.9 Chronic obstructive pulmonary disease, unspecified; F41.9 Anxiety disorder, unspecified; F32.9 Major depressive disorder, single episode, unspecified; F10.11 Alcohol abuse, in remission; F12.11 Cannabis abuse, in remission; K21.9 Gastro-esophageal reflux disease without esophagitis; Z88.5 Allergy status to narcotic agent; Z91.041 Radiographic dye allergy status
CPT/HCPCS: 36415; 49083; 85025; 85610; 85730

== ENCOUNTER 2019-05-17 09:29 | Day surgery (SDC) | payer MEDICARE, MEDICAID ==
[2019-05-14 13:49] VITALS: BMI 21.6
[2019-05-17] MEDS ORDERED: Sodium Bicarbonate 2.5 MEQ/5 ML VIAL ONE (10:03)
--- NOTE | 2019-05-17 10:37 | ULT ---
ULTRASOUND ABDOMEN COMPLETE: DATE: 05/17/2019 HISTORY: 58-year-old female with cirrhosis due to hepatitis B, and ascites. FINDINGS: Liver:Nodular margins. Echogenicity within normal limits, but echotexture coarse and heterogeneous. M ildly enlarged. Gallbladder:Surgically absent Common duct:4 mm Spleen:15 x 7 x 7 cm Pancreas:Poorly visualized Kidneys:No hydronephrosis. Abdominal aorta:No aneurysm Inferior vena cava:Patent Free fluid: Small amount IMPRESSION: 1) volume of ascites is small. The therapeutic paracentesis was therefore canceled. 2) hepatic cirrhosis. 3) splenomegaly. 4) status post cholecystectomy.
== END 2019-05-17 10:15 | disposition home or self-care (01) ==
LOC: ULT 09:29
PROVIDERS: ATTEND Internal Medicine
DX: K74.69 Other cirrhosis of liver (principal); R18.8 Other ascites; R16.1 Splenomegaly, not elsewhere classified; I10 Essential (primary) hypertension; J44.9 Chronic obstructive pulmonary disease, unspecified; K21.9 Gastro-esophageal reflux disease without esophagitis; F17.200 Nicotine dependence, unspecified, uncomplicated; Z53.8 Procedure and treatment not carried out for other reasons; Z88.5 Allergy status to narcotic agent; Z91.041 Radiographic dye allergy status
CPT/HCPCS: 93975

== ENCOUNTER 2019-06-09 16:26 | Emergency (ER) | payer MEDICARE, MEDICAID ==
--- NOTE | 2019-06-09 16:52 | RAD ---
XR Chest Pa Lat STANDARD History: Difficulty swallowing Comparison: Chest radiograph 2007 Findings: Low-grade reverse S-shaped scoliosis thoracic spine. The lungs are clear. No pneumothorax. No effusion. No acute osseous abnormality. Impression: No acute intrathoracic abnormality.
== END 2019-06-09 19:36 | disposition home or self-care (01) ==
LOC: ERS 16:26
DX: R13.10 Dysphagia, unspecified (principal); E78.5 Hyperlipidemia, unspecified; E78.00 Pure hypercholesterolemia, unspecified; I10 Essential (primary) hypertension; J44.9 Chronic obstructive pulmonary disease, unspecified; F32.9 Major depressive disorder, single episode, unspecified; F17.210 Nicotine dependence, cigarettes, uncomplicated; Z79.899 Other long term (current) drug therapy; Z79.51 Long term (current) use of inhaled steroids
CPT/HCPCS: 71046; 87081; 87430

== ENCOUNTER 2019-06-14 09:55 | Inpatient (IN) | payer MEDICARE, MEDICAID ==
[2019-06-14] MEDS ORDERED: Metoclopramide HCl 10 MG/2 ML VIAL ONE ×2 (11:01→15:48)
[2019-06-14] MEDS ORDERED: Iopamidol-370 76% 500 ML 1 ML ONE (11:36)
[2019-06-14 11:47] LABS: #Eosinphils 0.2 thou/uL (0.0-0.7); #Monocytes 0.7 thou/uL (0.11-0.59); %Basophils 0.1 % (0.0-1.0); %Eosinophils 2.1 % (0.0-10.0); %Lymphocytes 11.2 % (21.0-51.0); %Monocytes 7.4 % (0.0-10.0); %Neutrophils 79.2 % (42.0-75.0); ALT (SGPT) 23 U/L (8-55); AST (SGOT) 35 U/L (5-34); Albumin 4.8 g/dL (3.5-5.0); Alkaline Phosphatase 73 U/L (40-110); Anion Gap 16 mmol/L (10-20); BUN (Urea Nitrogen) 11 mg/dL (9.8-20.1); Bilirubin, Direct 0.7 mg/dL (0.1-0.3); Bilirubin, Total 1.5 mg/dL (0.2-1.2); Calc. Creatinine Clearance 0 mL/min (70-130); Carbon Dioxide 21 mmol/L (22-29); Chloride 76 mmol/L (98-107); Estimated GFR-MDRD 59; Glucose 102 mg/dL (70-105); Hemoglobin 13.9 g/dL (12.0-16.0); Lipase 43 U/L (8-78); Mean Corpuscular HGB CONC 36.5 g/dL (32.0-36.0); Mean Corpuscular Hemoglobin 36.1 pg (27.0-31.0); Mean Corpuscular Volume 98.9 fL (78.0-98.0); Mean Platelet Volume 8.4 fL (7.4-10.4); Platelet Count 151 thou/uL (130-400); Potassium 4.8 mmol/L (3.5-5.1); RBC Distribution Width 11.9 % (11.5-14.5); Red Blood Cell (RBC) Count 3.85 mill/uL (4.20-5.40); White Blood Cell (WBC) Count 8.8 thou/uL (4.8-10.8)
[2019-06-14] MEDS ORDERED: methylPREDNISolone Sod Succ/PF 125 MG/2 ML VIAL ONE (11:49)
[2019-06-14] MEDS ORDERED: diphenhydrAMINE 50 MG/ML VIAL ONE (11:49)
[2019-06-14] MEDS ORDERED: Famotidine/PF 20 mg/2ml Vial ONE (11:49)
[2019-06-14 11:56] LABS: Sodium 108 mmol/L (136-145)
[2019-06-14 12:00] LABS: Bilirubin Negative (Negative); Blood, Urine Negative (Negative); Clarity Clear (Clear); Glucose, Urine (Dipstick) Normal (Negative); Leukocyte Negative Leu/uL (Negative); Nitrite Negative (Negative); Protein, Urine (Dipstick) Negative (Neg-Trace); Urobilinogen Normal mg/dL (Less than 2)
--- NOTE | 2019-06-14 12:59 | CT ---
CT OF THE ABDOMEN AND PELVIS WITH IV CONTRAST INDICATION: Nausea vomiting diarrhea for 2 weeks COMPARISON: MR the abdomen with and without contrast dated November 19, 2018 FINDINGS: ABDOMEN: Lung bases: Clear Liver: Cirrhotic morphology to the liver. No focal hepatic lesion. Gallbladder: Surgically absent Pancreas: Normal. Adrenal glands: Normal. Spleen: Enlarged measuring 15.6 cm. Kidneys and ureters: Stable left renal cyst. No hydronephrosis. Vasculature: There are moderate vascular calcifications seen involving the visualized vasculature. Lymph nodes:No lymphadenopathy. Free fluid in abdomen:Mild ascites PELVIS: Small and large bowel: The colon is largely decompressed. Appendix:Seen within the right lower quadrant. The appendix measures 1. 5.4 mm on coronal image 76. T here is intraluminal gas seen along the course of the appendix. Bladder: Normal. Rectal and perirectal soft tissues:Normal. Reproductive structures: There are bilateral cystic lesions involving the adnexa, on the right measur ing 3.5 cm and the left measuring 3.3 cm. These are incompletely characterized current study. The uterus is surgically absent. Free fluid in pelvis: Moderate free fluid Lymphadenopathy pelvis: No lymphadenopathy is evident. Osseous structures: No acute osseous abnormality. No destructive osteolytic or osteoblastic lesion i s identified. There is scattered degenerative and osteoarthritic changes. Soft tissues:Normal. IMPRESSION: 1. Findings of cirrhosis with portal hypertension. 2. Bilateral adnexal cystic lesions, incompletely characterized. Recommend consideration for pelvic u ltrasound for additional characterization. 3. Stable left renal cyst.
--- NOTE | 2019-06-14 14:49 | PDOC.FPRHP ---
- History of Present Illness Chief Complaint: N/V/D History of Present Illness: This is a 58 yo patient with pmh of cirrhosis and recent cholecystectomy this year here with month hx of vomiting and having episodes of diarrhea. Pt for last month has been having n/v/d. Reports last two weeks it has worsened. Has only been eating broth since last and hasn't been able to keep down. Pt reports having diarrhea every other day. Reports having 2 loose watery stools. Reports vomiting 3x yesterday. Reports at worse she will have 3-4 loose stools a day. Pt reports having diarrhea off and on since august when she had her gall bladder taken out. Pt reports also being sick with Upper resp virus las friday. Reports hx of allergies and has off and on headaches from that. Pt had been seeing Dr. Stover for routine paracentesis monthly. She last saw him in March where they did not find enough fluid to drain. He then at that time pushed f/u to 2 months. Pt was suppose to see him this week for evaluation. Pt reports drinking heavy in her past but quit 6-7 years ago. Pt was treated for hepatitis C and states was told she was free of infection. ED Course: In the ED, she was given Metoclopramide, NS @ 100 ml/h, famotidine, diphenhydramine, methylprednisolone, and Zofran. - Allergies/Adverse Reactions Allergies Allergy/AdvReac Type Severity Reaction Status Date / Time codeine Allergy Verified 05/14/19 13:44 Iodine and Iodide Containing Allergy Verified 05/14/19 13:44 Produc - Home Medications Medication Instructions Recorded Confirmed Type Acetaminophen [Tylenol Arthritis] 650 mg PO Q6HR PRN 07/06/18 06/15/19 History Albuterol Sulfate [Ventolin HFA] 1 puff INH BID PRN 07/06/18 06/15/19 History Nortriptyline HCl 25 mg PO HS 07/06/18 06/15/19 History Pravastatin Sodium 20 mg PO HS 07/06/18 06/15/19 History Tetracycline HCl 500 mg PO DAILY 07/06/18 06/15/19 History diphenhydrAMINE [Benadryl] 25 mg PO Q6HR PRN 07/06/18 06/15/19 History Cyanocobalamin (Vitamin B-12) 1,000 mcg PO DAILY 30 Days #30 tab 01/09/19 12/17/ 19 Rx [Vitamin B-12] Folic Acid [Folvite] 1 mg PO DAILY 30 Days #30 tab 07/08/18 06/15/19 Rx Pantoprazole [Protonix] 40 mg PO BID 30 Days #60 tab 07/08/18 06/15/19 Rx Potassium Chloride [K-Dur] 20 meq PO QAM-WM 14 Days #14 tab 07/08/18 06/15/19 Rx Furosemide [Lasix] 40 mg PO DAILY 09/30/18 06/15/19 History Spironolactone 50 mg PO BID 09/30/18 06/15/19 History Bisacodyl [Dulcolax] 10 mg PO DAILY PRN 06/15/19 06/15/19 History - History PMHx: Cirrhosis 08/01 Hep C, HLD PSHx: Cholecystectomy 09/15, , Hysterectomy, Tubal Ligation, Knee Surgery, and Foot Surgery FHx: Sister- HTN Social: Quit drinking 6-7 yrs ago, smoking 2 ppd since age 12, and smokes weed from time to time. Code: Full code - Review of Systems General: reports: weight/appetite/sleep changes (Reports being down from 150-> 116), fatigue. denies: fever/chills, night sweats Eyes: denies: eye pain, vision changes ENT: denies: nasal congestion, rhinorrhea Respiratory: denies: cough, congestion, shortness of breath Cardiovascular: denies: chest pain, edema Gastrointestinal: reports: nausea, vomiting, diarrhea. denies: constipation, abdominal pain, GI bleeding Genitourinary: denies: incontinence, dysuria, polyuria, discharge Skin: denies: rashes, lesions Musculoskeletal: reports: pain (Reports having some back pain and muscle pain). denies: tenderness, stiffness, swelling, arthritis/arthralgias Neurological: reports: weakness. denies: numbness, seizure Psychological: denies: anxiety, depression - Vital signs BP: [111/60] HR: [87] RR: [18] Tmax: [98.2] Pox: [100]% on [RA] Wt: [52.6 kg] - Physical Exam Constitutional: NAD, awake, alert and oriented HEENT: normocephalic and atraumatic, PERRLA, EOMI, no scleral icterus, MMM, oropharynx clear Neck: supple, trachea midline Heart: RRR, normal S1/S2 Lungs: CTAB, no respiratory distress, good air movement Abdomen: soft, bowel sounds present -Abdomen: diffusely TTP Musculoskeletal: normal structure, normal tone, ROM grossly normal Neurological: CN II-XII intact Skin: no rash/lesions, no jaundice Heme/Lymphatic: no unusual bruising or bleeding Psychiatric: normal mood and affect FMR H&P: Results - Labs Result Diagrams: 06/14/19 11:10 06/15/19 04:08 Lab results: WBC 8.8 thou/uL (4.8-10.8) 06/14/19 11:10 Hgb 13.9 g/dL (12.0-16.0) 06/14/19 11:10 Hct 38.0 % (36.0-47.0) 06/14/19 11:10 MCV 98.9 fL (78.0-98.0) H 06/14/19 11:10 Plt Count 151 thou/uL (130-400) 06/14/19 11:10 Neutrophils % 79.2 % (42.0-75.0) H 06/14/19 11:10 Sodium 108 mmol/L (136-145) L* 06/14/19 11:10 Potassium 4.8 mmol/L (3.5-5.1) 06/14/19 11:10 Chloride 76 mmol/L (98-107) L 06/14/19 11:10 Carbon Dioxide 21 mmol/L (22-29) L 06/14/19 11:10 BUN 11 mg/dL (9.8-20.1) 06/14/19 11:10 Creatinine 0.98 mg/dL (0.6-1.1) 06/14/19 11:10 Glucose 102 mg/dL (70-105) 06/14/19 11:10 Calcium 10.0 mg/dL (7.8-10.44) 06/14/19 11:10 Total Bilirubin 1.5 mg/dL (0.2-1.2) H 06/14/19 11:10 AST 35 U/L (5-34) H 06/14/19 11:10 ALT 23 U/L (8-55) 06/14/19 11:10 Alkaline Phosphatase 73 U/L (40-110) 06/14/19 11:10 Serum Total Protein 10.0 g/dL (6.0-8.3) H 06/14/19 11:10 Albumin 4.8 g/dL (3.5-5.0) 06/14/19 11:10 Lipase 43 U/L (8-78) 06/14/19 11:10 Urine Ketones Negative mg/dL (Negative) 06/14/19 11:36 Urine Blood Negative (Negative) 06/14/19 11:36 Urine Nitrite Negative (Negative) 06/14/19 11:36 Ur Leukocyte Esterase Negative Timi/uL (Negative) 06/14/19 11:36 - EKG Interpretation EKG: Normal sinus rhythm - Radiology Interpretation CT scan - abdomen Status: image reviewed by me, report reviewed by me (Findings of cirrhosis w/ portal hypertension, Bilateral adnexal cystic lesion, incompletely characterized. Recommend consideration for pelvic U/S. Stable left renal cyst.) FMR H&P: A/P - Problem List (1) Hyponatremia Current Visit: Yes Status: Acute Code(s): E87.1 - HYPO-OSMOLALITY AND HYPONATREMIA (2) Cirrhosis Current Visit: No Status: Acute Code(s): K74.60 - UNSPECIFIED CIRRHOSIS OF LIVER (3) HLD (hyperlipidemia) Current Visit: No Status: Acute Code(s): E78.5 - HYPERLIPIDEMIA, UNSPECIFIED (4) HTN (hypertension) Current Visit: No Status: Acute Code(s): I10 - ESSENTIAL (PRIMARY) HYPERTENSION (5) Intractable nausea and vomiting Current Visit: No Status: Acute Code(s): R11.2 - NAUSEA WITH VOMITING, UNSPECIFIED - Plan Pt is 58 yo F with history of Cirrhosis, Hep C that has been treated and resolved, and HLD, who has had a month of n/v/d. 1. Severe Hypovolemic Hyponatremia Na: 108 * Given 1L of NS in ED and started on NS @ 100 * BMP ordered for 0 & 2029 this evening * We will slowly correct with Na increase of 6 over first 24H and 8 over 24H after that * We will also check serum osmol to rule out any other underlying cause of hypovolemia. 2. Cirrhosis AST: 35 * Was to follow up with GI doc, Dr. Stover, tomorrow * Consulted GI, appreciate recs * CT: Cirrhosis with Portal HTN * Will get PT, PTT, INR * Will calculate Meld score once we recieve pending labs. 3. Intracable Nausea & Vomiting * Received Phenegran and Metoclopramide in the ED * Will have prn Zofran * Currently replacing fluids 4. HLD * Will restart home meds 5. HTN * Will restart home meds 6. Bilateral Cystic Adnexal Masses * Will need outpt workup Code Status: Full Diet: Liquids DVT PPx: Holding until we get Coag studies PCP: Connor Dispo: Tele inpt, LOS > 48H. Will monitor electrolytes and slowly correct. FMR H&P: Upper Level - Pertinent history I was present with the internal investigator, Dr. Elissa Mark. I scribed the above document. I made edits as needed. See above HPI for details. - Pertinent findings Pt had some mild diffuse tenderness to palpation in her abdomen. No fluid wave noted. Pt did not appear jaundiced. No rebound or guarding was noted on abdominal exam. - Plan Date/Time: 06/14/19 [id number] I, Brandon Pederson, PGY3, have evaluated this patient and agree with findings/plan as outlined by internal investigator resident. Pertinent changes/additions are listed here. I have reviewed the above A/P and made edits as needed. Please see above for detailed plan. At this time we will admit pt for severe hyponatremia likely 2/2 hypovolemia from v/d. We will correct with gentle NS IVF replacement. We will continuously check BMP to ensure we do not overcorrect. We will check serum osm to help confirm etiology of hyponatremai. Pt also has slight bump in bili and AST. In past visits it has bumped like this and corrected. We will consult Dr. Stover with GI who she sess for recs. We will also continue zofran for n/v and add phenegran and metoclopramide as needed. Possibly diarrhea related to gallbladder removal. May consider supplementation with colestid to see if helps with improvement. Pt has also had multiple para and recent hospital/ER visits. Will check c.diff assay. Addendum - Attending - Attending Attestation Date/Time: 06/15/19 8810 I personally evaluated the patient and discussed the management with Dr. Pederson at time of admission. See separate note. I agree with the History, Examination, Assessment and Plan documented above with any addition or exceptions noted below.
--- NOTE | 2019-06-14 15:16 | PDOC.FPRHP ---
- History of Present Illness Chief Complaint: Nausea/Vomiting/Diarrhea - Allergies/Adverse Reactions Allergies Allergy/AdvReac Type Severity Reaction Status Date / Time codeine Allergy Verified 05/14/19 13:44 Iodine and Iodide Containing Allergy Verified 05/14/19 13:44 Produc - Home Medications Medication Instructions Recorded Confirmed Type Acetaminophen [Tylenol Arthritis] 650 mg PO Q6HR PRN 07/06/18 06/11/19 History Albuterol Sulfate [Ventolin HFA] 1 puff INH BID PRN 07/06/18 06/11/19 History Estradiol [Estrace] 1 mg PO DAILY 07/06/18 06/11/19 History Nortriptyline HCl 25 mg PO HS 07/06/18 06/11/19 History Pravastatin Sodium 20 mg PO HS 07/06/18 06/11/19 History Tetracycline HCl 500 mg PO DAILY 07/06/18 06/11/19 History diphenhydrAMINE [Benadryl] 25 mg PO Q6HR PRN 07/06/18 06/11/19 History Bisacodyl [Dulcolax] 10 mg PO DAILY 30 Days #30 tab 07/08/18 06/11/19 Rx Cyanocobalamin (Vitamin B-12) 1,000 mcg PO DAILY 30 Days #30 tab 07/08/18 Rx [Vitamin B-12] Folic Acid [Folvite] 1 mg PO DAILY 30 Days #30 tab 07/08/18 06/11/19 Rx Pantoprazole [Protonix] 40 mg PO BID 30 Days #60 tab 07/08/18 06/11/19 Rx Potassium Chloride [K-Dur] 20 meq PO QAM-WM 14 Days #14 tab 07/08/18 06/11/19 Rx Ferrous Sulfate [Feosol] 65 mg PO BID-WM 09/30/18 06/11/19 History Furosemide [Lasix] 40 mg PO DAILY 09/30/18 06/11/19 History Spironolactone 50 mg PO BID 09/30/18 06/11/19 History - History PMHx: Hep C- treated in the past, HTN, HLD PSHx: Cholecystectomy FHx: Social: - Vital signs BP: [] HR: [] RR: [] Tmax: [] Pox: []% on [] Wt: [] FMR H&P: Results - Labs Result Diagrams: 06/14/19 11:10 06/14/19 11:10 Lab results: WBC 8.8 thou/uL (4.8-10.8) 06/14/19 11:10 Hgb 13.9 g/dL (12.0-16.0) 06/14/19 11:10 Hct 38.0 % (36.0-47.0) 06/14/19 11:10 MCV 98.9 fL (78.0-98.0) H 06/14/19 11:10 Plt Count 151 thou/uL (130-400) 06/14/19 11:10 Neutrophils % 79.2 % (42.0-75.0) H 06/14/19 11:10 Sodium 108 mmol/L (136-145) L* 06/14/19 11:10 Potassium 4.8 mmol/L (3.5-5.1) 06/14/19 11:10 Chloride 76 mmol/L (98-107) L 06/14/19 11:10 Carbon Dioxide 21 mmol/L (22-29) L 06/14/19 11:10 BUN 11 mg/dL (9.8-20.1) 06/14/19 11:10 Creatinine 0.98 mg/dL (0.6-1.1) 06/14/19 11:10 Glucose 102 mg/dL (70-105) 06/14/19 11:10 Calcium 10.0 mg/dL (7.8-10.44) 06/14/19 11:10 Total Bilirubin 1.5 mg/dL (0.2-1.2) H 06/14/19 11:10 AST 35 U/L (5-34) H 06/14/19 11:10 ALT 23 U/L (8-55) 06/14/19 11:10 Alkaline Phosphatase 73 U/L (40-110) 06/14/19 11:10 Serum Total Protein 10.0 g/dL (6.0-8.3) H 06/14/19 11:10 Albumin 4.8 g/dL (3.5-5.0) 06/14/19 11:10 Lipase 43 U/L (8-78) 06/14/19 11:10 Urine Ketones Negative mg/dL (Negative) 06/14/19 11:36 Urine Blood Negative (Negative) 06/14/19 11:36 Urine Nitrite Negative (Negative) 06/14/19 11:36 Ur Leukocyte Esterase Negative Timi/uL (Negative) 06/14/19 11:36 FMR H&P: Upper Level - Plan Date/Time: 06/14/19 1325 I, [], have evaluated this patient and agree with findings/plan as outlined by promotions intern resident. Pertinent changes/additions are listed here.
[2019-06-14] MEDS ORDERED: Ondansetron PF 4 MG/2 ML Vial IVP PRN (15:21)
[2019-06-14] MEDS ORDERED: Ondansetron ODT 4 MG TAB PO PRN (15:21)
[2019-06-14] MEDS ORDERED: Sodium Chloride 0.9% 1,000 ML IV SCH (16:30)
[2019-06-14 16:34] LABS: INR-International Normal Ratio 1.3; PTT 35.1 SEC (22.9-36.1)
[2019-06-14 17:34] LABS: Anion Gap 12 mmol/L (10-20); BUN (Urea Nitrogen) 10 mg/dL (9.8-20.1); Calc. Creatinine Clearance 0 mL/min (70-130); Calcium 9.5 mg/dL (7.8-10.44); Carbon Dioxide 20 mmol/L (22-29); Chloride 87 mmol/L (98-107); Estimated GFR-MDRD 59; Glucose 134 mg/dL (70-105); Potassium 4.9 mmol/L (3.5-5.1)
[2019-06-14 17:39] LABS: Sodium 114 mmol/L (136-145)
--- NOTE | 2019-06-14 17:43 | PDOC.BPN ---
- Brief Progress Note Date/Time: 06/14/19 0442 I personally evaluated the patient and discussed the management with Dr. Mark. H&P pending. I agree with the History, Examination, Assessment and Plan as discussed. Patient was a patient of Dr Bolton but his pactice closed adn she is established with Dr Ryan and [facility] on [facility]. Came to ER today due to persistent N/V. Has had diarrhea for several weeks, but is formed stool. Foud nto ahve sodoum of 108. her clinical picture is consistent with hypovolemic hyponatremia. Will gently hydrate with NS and check soium q 4 hours. May require changing to 1/2 NS if correction is too rapid.
[2019-06-14] MEDS ORDERED: Cosyntropin 250 MCG VIAL SLOW IVP SCH (20:15)
[2019-06-14] MEDS ORDERED: Dextrose 5 % And 0.9 % NaCl 1,000 ML IV SCH (20:15)
[2019-06-14] MEDS ORDERED: Dextrose 5 %-0.45 % NaCl 1,000 ML IV SCH (20:30)
[2019-06-14 20:52] LABS: Anion Gap 11 mmol/L (10-20); BUN (Urea Nitrogen) 10 mg/dL (9.8-20.1); Calc. Creatinine Clearance 0 mL/min (70-130); Calcium 9.4 mg/dL (7.8-10.44); Carbon Dioxide 22 mmol/L (22-29); Chloride 87 mmol/L (98-107); Estimated GFR-MDRD 56; Glucose 132 mg/dL (70-105); Potassium 4.7 mmol/L (3.5-5.1)
[2019-06-14 21:20] LABS: Sodium 115 mmol/L (136-145)
[2019-06-14] MEDS: Famotidine 20 MG TAB PO SCH (22:13)
[2019-06-15 00:04] VITALS: BMI 20.3
--- NOTE | 2019-06-15 00:26 | CON ---
DATE OF CONSULTATION: HISTORY OF PRESENT ILLNESS: Ms. Harvey is a 58-year-old white female, who was admitted for hyponatremia. According to the patient, she has been having nausea and vomiting for the last several weeks. Her p.o. intake has much decreased. She has also been having on and off diarrhea. We are now being consulted for further management of this hyponatremia-acute? She was initially seen at a.m. and she received 1 L of normal saline. She is currently on maintenance normal saline at 100 mL/h. REVIEW OF SYSTEMS: Positive for nausea and vomiting. Positive for generalized malaise. Positive for decreased p.o. intake. Positive for intermittent diarrhea. No fever or chills. No abdominal pain. No leg swelling. No chest pain. No shortness of breath. No fever or chills. No headache. No diplopia. No syncopal episode. No sore throat. PAST MEDICAL HISTORY: Includes the following; status post upper GI bleed, cirrhosis, chronic hepatitis C, insomnia, COPD, history of ascites. PAST SURGICAL HISTORY: Status post laparoscopic cholecystectomy, status post hysterectomy, status post section, status post bilateral tubal ligation status post foot surgery, status post knee surgery for trauma, status post paracenteses. HOME MEDICATIONS: Included the following; 1. Tetracycline 500 mg daily. 2. Benadryl 25 mg q.6 hours p.r.n. 3. Spironolactone 50 mg p.o. b.i.d. 4. Pravastatin 20 mg tablet at bedtime. 5. Potassium chloride 20 mEq q.a.m. 6. Protonix 40 mg b.i.d. 7. Nortriptyline 25 mg at bedtime. 8. Furosemide 40 mg daily. 9. Folic acid 1 mg daily. 10. Ferrous sulfate 65 mg p.o. b.i.d. 11. Estradiol 1 mg daily. 12. Albuterol oral inhaler b.i.d. HOSPITAL MEDICATIONS: Currently on normal saline at 125 mL/h, famotidine 20 mg p.o. b.i.d., Zofran 4 mg p.o. q.6 hours p.r.n. ALLERGIES: CODEINE, IODINE. TRAUMA: None. IMMUNIZATION: Up-to-date. HOSPITALIZATIONS: Please see past medical history. SOCIAL HISTORY: The patient is , 1 child-. Lives in [facility]. 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 Smoking at 1 pack a day, previously 2 packs a day. Education, 7th grade. No IV drug abuse. FAMILY HISTORY: No family history of ESRD. PHYSICAL EXAMINATION: VITAL SIGNS: Blood pressure is 98/61, heart rate 92, and pulse ox 100%. GENERAL: Noted to be awake, supine, comfortable, not in overt distress. SKIN: Adequate turgor. HEENT: She has pinkish conjunctivae. Anicteric sclerae. NECK: No neck mass. No carotid bruits. No JVD. CHEST: No deformities. LUNGS: Clear breath sounds. No wheezing. No crackles. HEART: Normal sinus rhythm. No murmur. No gallops. No rubs. ABDOMEN: Globular, soft, nontender. No masses. Positive for ascites. EXTREMITIES: No edema. No deformities. NEUROLOGICAL: Awake, oriented to 3 spheres. Moving all extremities. No tremors. No asterixis. No ataxia. LABORATORY DATA: Laboratories of June 14, 2019; sodium 108, chloride 76, potassium 4.8, carbon dioxide 21, BUN 11, creatinine 0.98, calcium 10, total bilirubin 1.5, AST 35, ALT 23, alkaline phosphatase 73, albumin 4.8. March 22, 2019, serum sodium 128. March 10, 2019, serum sodium 124. June 14, 2019, urinalysis, specific gravity of 1.005, no protein, no red cells, no white cells. Urine chemistries are still pending. INR 1.3. June 14, 2019, CT scan of the abdomen and pelvis showed cirrhosis with portal hypertension, bilateral adnexal cystic lesions. Stable left renal cyst. There is moderate free fluid in the pelvic area. ASSESSMENT AND PLAN: 1. Hyponatremia-this may be related from hypovolemic hyponatremia with a history of diuretic use, decreased p.o. intake, nausea and vomiting as well as diarrhea. Status post volume repletion. Currently, on normal saline running at 100 to 125 mL/hour. We will be rechecking another serum sodium at 6 p.m. Adjust fluid as needed. For the moment, no indication for any hypertonic saline with this patient. 2. Cirrhosis-supportive care. Due to the hyponatremia, her diuretics have been placed on hold. 3. The patient is not a liver transplant candidate. 4. Recheck basic metabolic profile in a.m. Thank you for the consult. We will continue to follow. Job ID: [id number]
[2019-06-15] MEDS ORDERED: Nicotine 14 MG PATCH TD SCH (00:30)
[2019-06-15 01:16] LABS: Amphetamine Not Detected (NotDetected); Barbiturates Screen Not Detected (NotDetected); Benzodiazepine Screen Not Detected (NotDetected); Cocaine Metabolite Screen Not Detected (NotDetected); Medtox Reader # READER 4; Methadone Not Detected (NotDetected); Methamphetamine Not Detected (NotDetected); Opiate Screen Not Detected (NotDetected); Phencyclidine (PCP) Not Detected (NotDetected); THC/Cannabinoid Screen Detected (NotDetected); Tricyclic Screen Detected (NotDetected)
[2019-06-15 01:17] LABS: Medtox Control Line Valid? VALID (VALID); Oxycodone Screen Not Detected (NotDetected)
[2019-06-15 01:21] LABS: Creatinine, Urine 39.86 mg/dL (47-110); Sodium, Urine Less than 20 mmol/L (Not Available)
[2019-06-15 01:55] LABS: Anion Gap 13 mmol/L (10-20); BUN (Urea Nitrogen) 12 mg/dL (9.8-20.1); Calc. Creatinine Clearance 54 mL/min (70-130); Calcium 9.3 mg/dL (7.8-10.44); Carbon Dioxide 21 mmol/L (22-29); Chloride 90 mmol/L (98-107); Estimated GFR-MDRD 58; Glucose 130 mg/dL (70-105); Potassium 5.1 mmol/L (3.5-5.1)
[2019-06-15 02:05] LABS: Sodium 119 mmol/L (136-145)
--- NOTE | 2019-06-15 03:05 | CON ---
DATE OF CONSULTATION: REASON FOR CONSULTATION: History of cirrhosis, admitted with profound hyponatremia, and dehydration. HISTORY OF PRESENT ILLNESS: Ms. Harvey is a 58-year-old female, who was seen by Dr. Steve Stover in the past for treatment of hepatitis C. She has known history and diagnosed of cirrhosis presumptively from hepatitis C and alcohol abuse. She states she does not drink alcohol anymore and stopped at the time of her treatment for hepatitis C. Her hepatitis C has gone now with documented test of cure with negative hep C, RNA in June 2018. She reports for the past 2 weeks, she has had persistent vomiting, not able to hold anything down. She is not really taking any medications. She denies taking any drugs except smoking marijuana. She denies headache or vision changes or migraine-like symptoms. Denies any hematemesis, melena, or hematochezia. She reports she came to the emergency room on for persistent nausea, vomiting. Apparently, she had a normal chest x-ray at that time and some strep test, all that were negative. No other evaluation was done. She was released. She reports that she has had serial paracentesis, the last time she went on 05/17, there was no fluid to tap when she had been there. She is going monthly ever since. She developed ascites after her cholecystectomy in August. Her last paracentesis where they took out fluid was in March and they took out 3 L. She returned to the ER today as she has persistent vomiting. She had seen her PCP in the office and they tried giving her some nausea medicine and put on a liquid diet. She just reports having a couple of loose stools a day. She had no melena or hematemesis. She states that since her gallbladder was removed, she has had intermittent diarrhea. She denies any fever or chills. She apparently has appointment with Dr. Stover in the outpatient setting tomorrow. she was given normal saline, Pepcid, Benadryl, steroids, Zofran, metoclopramide. PAST MEDICAL HISTORY: Cirrhosis, hepatitis C, COPD. PAST SURGICAL HISTORY: Cholecystectomy in 08/2018, , hysterectomy, tubal ligation, knee surgery, foot surgery. She had an upper endoscopy that showed no varices in June 2018 when she was in for some hematemesis and some small erosions in her stomach. In 02/2017, she had a few hyperplastic nonmalignant polyps removed . She had MRI, 10/2018 for hepatoma screening that was normal. She had a chest x-ray on the when she was here with no lung lesions. HOME MEDICATIONS: She does not have a list, but she states that the list here is the same, which include, 1. Aldactone 50 b.i.d. 2. Furosemide 40 mg daily. 3. Iron sulfate. 4. Potassium chloride 20 mEq daily. 5. Protonix 40 mg p.o. b.i.d. 6. Folic acid. 7. B12. 8. Bisacodyl p.r.n. 9. Benadryl p.r.n. 10. She was on tetracycline back in June. I do not think she is on that anymore. 11. Pravastatin. 12. Nortriptyline. 13. Estradiol. 14. Albuterol. 15. Acetaminophen. Medications here, she has been started on normal saline. She has a Hep-Locked IV Zofran and Pepcid b.i.d. PHYSICAL EXAMINATION: VITAL SIGNS: She has a temperature of 97.5, pulse 94, blood pressure is 92/64. GENERAL: She is resting comfortably in bed. She is in no distress. She is not retching. HEENT: Conjunctivae and sclerae are clear. Oropharynx is dry. NECK: Supple without any adenopathy. LUNGS: Clear. HEART: Regular rate and rhythm without clicks or murmurs. ABDOMEN: Soft and nontender. There is no shifting dullness or fluid wave. There is no palpable hepatosplenomegaly. There is no evidence of inguinal hernias. EXTREMITIES: No clubbing, cyanosis, or edema. SKIN: Turgor is poor, consistent with dehydration. There is no asterixis. NEUROLOGIC: She is alert and oriented to person, place, and time. Thyroid is nonpalpable. There is no adnexal or inguinal adenopathy. She has no asterixis. LABORATORY STUDIES: White count 8.8, hemoglobin 13.9, MCV is 98, platelet count is 151, it has been in the 100 in the past. INR is 1.3. Sodium was 128 in February, it was 108 on 06/14 at 1100; it was 114 at 1600, chloride 76, bicarb 21, BUN and creatinine 11 and 0.9, bilirubin is 1.5, AST 35, ALT 23, alkaline phosphatase 73, total protein is 10, albumin is 4.8. Last AFP was 5.5 in July. Urine negative. Imaging reviewed. CT scan showed no liver masses or lesions. Chest x-ray was normal. ASSESSMENT: This is a 58-year-old lady with; 1. Cirrhosis, admitted with 2 weeks of nausea, vomiting. Etiology is unclear. Could be cyclical vomiting from marijuana use that could be viral. She has had EGDs in the past. No ulcers. She has been on PPI in the outpatient setting. Some obstruction is unlikely. CAT scan does not show this. 2. Hypovolemic hypoosmotic hyponatremia. This is likely related to dehydration. She has no further ascites for tap. She is on diuretics at home. Differential diagnosis would include dehydration from cyclical vomiting, adrenal insufficiency. syndrome of inappropriate antidiuretic hormone secretion appears less likely. This does not appear to be hyponatremia associated with hypervolemic hyponatremia. RECOMMENDATIONS: 1. Hold diuretics. Start gentle hydration with normal saline. 2. Zofran p.r.n. for nausea. Would place her on a PPI or an H2 ramiro for ulcer prophylaxis. We will follow along with you. 3. Diarrhea. I agree with checking a C diff. 4. The patient is up to date on hepatoma screening. She is up to date on varices screening with no varices noted on EGD recently in June of this year. We will follow along with you during this hospitalization. Job ID: [id number]
[2019-06-15 04:31] LABS: Hemoglobin A1c 4.6 % (4.0-6.0)
[2019-06-15 04:47] LABS: ALT (SGPT) 20 U/L (8-55); AST (SGOT) 27 U/L (5-34); Alkaline Phosphatase 61 U/L (40-110); Anion Gap 15 mmol/L (10-20); BUN (Urea Nitrogen) 12 mg/dL (9.8-20.1); Bilirubin, Direct 0.4 mg/dL (0.1-0.3); Bilirubin, Total 0.9 mg/dL (0.2-1.2); Calc. Creatinine Clearance 59 mL/min (70-130); Calcium 9.5 mg/dL (7.8-10.44); Carbon Dioxide 18 mmol/L (22-29); Chloride 91 mmol/L (98-107); Estimated GFR-MDRD 64; Glucose 113 mg/dL (70-105); Potassium 5.3 mmol/L (3.5-5.1); Protein, Total 8.3 g/dL (6.0-8.3)
[2019-06-15 04:53] LABS: Sodium 119 mmol/L (136-145)
[2019-06-15] MEDS: Enoxaparin Sodium 40 MG/0.4 ML SYRINGE SC SCH (08:08)
[2019-06-15] MEDS: Famotidine 20 MG TAB PO SCH ×2 (08:08→19:46)
[2019-06-15] MEDS: Sodium Chloride 0.9% 1,000 ML IV SCH ×2 (08:09→19:46)
--- NOTE | 2019-06-15 08:32 | PRG ---
DATE OF SERVICE: 06/15/2019 SERVICE: Renal Medicine. SUBJECTIVE: Ms. Harvey is a 58-year-old white female who was seen by the Renal Service for her hyponatremia. She may have had an acute exacerbation of this hyponatremia as suggested by her laboratories. Due to the history of nausea, vomiting, diuretic use, and decreased p.o. intake as well as diarrhea, it was felt that she had hypovolemic hyponatremia. Empiric volume repletion was done. She received initially 1 L of normal saline down in the ER and was maintained on normal saline. Serum sodium has now improved from 108 to a most recent value of 119. I would at least continue current IV fluid at a reduced rate of 75 mL/hour. The patient is not in volume overload. OBJECTIVE: VITAL SIGNS: Blood pressure is 96/52, heart rate 91, respiratory rate 20, temperature 98.3, and pulse ox 97%. GENERAL: Noted to be awake, alert, comfortable, not in overt distress. SKIN: Adequate turgor. HEENT: Pinkish conjunctivae. Anicteric sclerae. NECK: No neck mass. No carotid bruits. No JVD. CHEST: No deformities. LUNGS: Clear breath sounds. No wheezing. No crackles. HEART: Normal sinus rhythm. No murmurs, no gallops, or no rubs. ABDOMEN: Globular, soft, nontender. No masses. EXTREMITIES: No edema. No deformities. MEDICATIONS: Of June 15, 2019, were reviewed. LABORATORY DATA: Laboratories of June 15, 2019, sodium 119, potassium 5.3, chloride 91, carbon dioxide 18, BUN 12, creatinine 0.91, and calcium 9.5. TSH 1.5. Cortisol level baseline was noted to be at 2.5. Hemoglobin A1c 4.6 on June 14, 2019; hemoglobin 13.9. ASSESSMENT: 1. Hyponatremia - initial evaluation suggested this could be hypovolemic hyponatremia. Slightly improved serum sodium from 108 to a most recent value of 119 in the last 24 hours. We will at least maintain the patient on decreased dose of normal saline 75 mL/h. The initial cortisol level baseline was noted at 2.5. A Cortrosyn stimulation test is being done. The patient is being ruled out for the possibility of adrenal insufficiency also. Please note, her TSH is within normal. 2. Cirrhosis - GI following, exact etiology is unclear. Continue supportive care. Continue to hold off diuretics for the moment with this patient until serum sodium is much improved. 3. Overall, agree with current management. Recheck basic metabolic profile in a.m. Job ID: [id number]
--- NOTE | 2019-06-15 10:32 | PDOC.HOSPP ---
- Subjective Encounter Date: 06/15/19 Encounter Time: 10:30 Subjective: relates she uses THC to stimulate appetite - Objective Vital Signs & Weight: Vital Signs (12 hours) Temp Pulse Resp BP Pulse Ox 06/15/19 08:00 97.8 F 107 H 20 107/67 100 06/15/19 04:15 98.3 F 91 20 96/52 L 97 06/15/19 00:00 97.7 F 82 18 94/51 L 99 Weight Weight 118 lb 9 oz Result Diagrams: 06/14/19 11:10 06/15/19 04:08 Additional Labs: Accuchecks 06/14/19 20:42 POC Glucose 198 H Hospitalist ROS - Medication Medications: Active Medications Generic Name Dose Route Start Last Admin Trade Name Freq PRN Reason Stop Dose Admin Cosyntropin 250 mcg 06/14/19 20:15 06/15/19 06:43 Cortrosyn SLOW IVP 250 mcg WILLCALL FRANCOIS Administration Enoxaparin Sodium 40 mg 06/15/19 09:00 06/15/19 08:08 Lovenox SC 40 mg 0900 FRANCOIS Administration Famotidine 20 mg 06/14/19 21:00 06/15/19 08:08 Pepcid PO 20 mg BID FRANCOIS Administration Sodium Chloride 1,000 mls @ 75 mls/hr 06/15/19 07:45 06/15/19 08:09 Normal Saline 0.9% IV 1,000 mls .[id number] FRANCOIS Administration - Exam General Appearance: awake alert Neck: no JVD Heart: RRR, no murmur Respiratory: CTAB Gastrointestinal: soft, non-tender, normal bowel sounds Extremities: no edema Hosp A/P (1) Intractable nausea and vomiting Code(s): R11.2 - NAUSEA WITH VOMITING, UNSPECIFIED Status: Acute (2) Hyponatremia Code(s): E87.1 - HYPO-OSMOLALITY AND HYPONATREMIA Status: Acute (3) Cirrhosis Code(s): K74.60 - UNSPECIFIED CIRRHOSIS OF LIVER Status: Chronic Qualifiers: Hepatic cirrhosis type: unspecified hepatic cirrhosis Ascites presence: with ascites Qualified Code(s): K74.60 - Unspecified cirrhosis of liver; R18.8 - Other ascites (4) HLD (hyperlipidemia) Code(s): E78.5 - HYPERLIPIDEMIA, UNSPECIFIED Status: Chronic Qualifiers: Hyperlipidemia type: unspecified Qualified Code(s): E78.5 - Hyperlipidemia , unspecified (5) HTN (hypertension) Code(s): I10 - ESSENTIAL (PRIMARY) HYPERTENSION Status: Chronic Qualifiers: Hypertension type: essential hypertension Qualified Code(s): I10 - Essential (primary) hypertension (6) Hepatitis C Code(s): B19.20 - UNSPECIFIED VIRAL HEPATITIS C WITHOUT HEPATIC COMA Status: Chronic Qualifiers: Viral hepatitis chronicity: unspecified Hepatic coma status: without hepatic coma Qualified Code(s): B19.20 - Unspecified viral hepatitis C without hepatic coma - Plan cont iv saline monitor Na level hold diuretic discussed hyperemesis with THC-
--- NOTE | 2019-06-15 18:56 | PRG ---
DATE OF SERVICE: 06/15/2019 SUBJECTIVE: She has had no vomiting. She has tolerated her diet. OBJECTIVE: VITAL SIGNS: Temperature is 97.4, pulse 84, blood pressure 92/50. LUNGS: Clear. ABDOMEN: Soft, nontender. EXTREMITIES: No clubbing, cyanosis, or edema. LABORATORY DATA: Sodium is up to 119, potassium 5.3, BUN and creatinine are 12 and 0.9. Liver function tests normal. Albumin 5. LFTs normal. TSH normal. Cortrosyn stim at base line 2.5 . ASSESSMENT: 1. Cirrhosis. 2. Chronic marijuana use. 3. Likely cyclical vomiting syndrome. 4. Hyponatremia, likely related to over-diuresis, as her hepatic function has improved after decompensating after cholecystectomy earlier this year. RECOMMENDATIONS: Hold diuretics. Continue normal saline hydration and advance diet as tolerated. Dr. Stover will return in the morning. Job ID: [id number]
[2019-06-15] MEDS: Nicotine 14 MG PATCH TD SCH (19:46)
[2019-06-15] MEDS: Lorazepam 0.5 MG TAB PO PRN (19:46)
[2019-06-16 05:43] LABS: Anion Gap 7 mmol/L (10-20); BUN (Urea Nitrogen) 10 mg/dL (9.8-20.1); Calc. Creatinine Clearance 67 mL/min (70-130); Carbon Dioxide 25 mmol/L (22-29); Chloride 98 mmol/L (98-107); Estimated GFR-MDRD 74; Glucose 79 mg/dL (70-105); Sodium 126 mmol/L (136-145)
[2019-06-16] MEDS: Famotidine 20 MG TAB PO SCH ×2 (09:07→20:27)
[2019-06-16] MEDS: Enoxaparin Sodium 40 MG/0.4 ML SYRINGE SC SCH (09:07)
--- NOTE | 2019-06-16 09:48 | PRG ---
DATE OF SERVICE: 06/16/2019 SERVICE: Renal Medicine. SUBJECTIVE: Ms. Harvey is a 58-year-old white female who was admitted for hyponatremia. Initially, we felt that this may be from hypovolemic hyponatremia due to the decreased p.o. intake and history of diuretic use. Empiric volume repletion was given with slow improvement of the serum sodium. This morning, she is feeling better. She is tolerating her p.o. intake. She denies any chest pain or shortness of breath. OBJECTIVE: VITAL SIGNS: Blood pressure is 108/64, heart rate 83, respiratory rate 18, temperature 98.5, and pulse ox 100%. GENERAL: Awake, alert, comfortable, not in overt distress. SKIN: Adequate turgor. HEENT: Pinkish conjunctivae. Anicteric sclerae. NECK: No neck mass. No carotid bruits. No JVD. CHEST: No deformities. LUNGS: Clear breath sounds. HEART: Normal sinus rhythm. No murmur. No gallops. No rubs. ABDOMEN: Globular. Soft, nontender. No masses. EXTREMITIES: No edema. MEDICATIONS: Medications of June 16, 2019, reviewed. LABORATORY DATA: Laboratories of June 16, 2019, sodium 126, potassium 4, chloride 98, carbon dioxide 25, BUN is 10, creatinine 0.8, and calcium 9.0. Cortrosyn stimulation test showed a baseline cortisol level of 2.5 and after Cortrosyn at 30 minutes was 18 and at 90 minutes was 22.4. ASSESSMENT AND PLAN: 1. Hyponatremia - improved with normal saline. Serum sodium is now 126. Continue current IV hydration. We will also consider free water restriction. Please note her Cortrosyn stimulation test is equivocal. I feel that she might still benefit from some steroid replacement, especially in a background of low blood pressure. 2. Cirrhosis - uncertain etiology. Gastroenterology following. 3. Overall, agree with current management for the moment. Continue current IV hydration. Recheck basic metabolic profile in a.m. Job ID: [id number]
[2019-06-16] MEDS: Sodium Chloride 0.9% 1,000 ML IV SCH ×2 (11:25→20:33)
--- NOTE | 2019-06-16 14:52 | PDOC.HOSPP ---
- Subjective Encounter Date: 06/16/19 Encounter Time: 14:51 Subjective: GI complaints resolved, - Objective Vital Signs & Weight: Vital Signs (12 hours) Temp Pulse Resp BP Pulse Ox 06/16/19 12:53 97.8 F 90 18 98/59 L 100 06/16/19 08:07 98.5 F 83 18 108/64 100 06/16/19 07:37 100 06/16/19 05:23 100 06/16/19 05:14 98.3 F 99 20 92/59 L 100 Weight Admit Weight 118 lb 9 oz Weight 118 lb 9 oz I&O: 06/15/19 06/16/19 06/17/19 06:59 06:59 06:59 Intake Total 1300 Balance 1300 Result Diagrams: 06/14/19 11:10 06/16/19 05:00 Hospitalist ROS - Medication Medications: Active Medications Generic Name Dose Route Start Last Admin Trade Name Freq PRN Reason Stop Dose Admin Cosyntropin 250 mcg 06/14/19 20:15 06/15/19 06:43 Cortrosyn SLOW IVP 250 mcg WILLCALL FRANCOIS Administration Enoxaparin Sodium 40 mg 06/15/19 09:00 06/16/19 09:07 Lovenox SC 40 mg 0900 FRANCOIS Administration Famotidine 20 mg 06/14/19 21:00 06/16/19 09:07 Pepcid PO 20 mg BID FRANCOIS Administration Sodium Chloride 1,000 mls @ 75 mls/hr 06/15/19 07:45 06/16/19 11:25 Normal Saline 0.9% IV 1,000 mls .[id number] FRANCOIS Administration Lorazepam 0.5 mg 06/15/19 18:15 06/15/19 19:46 Ativan PO 0.5 mg Q6H PRN Administration Anxiety Nicotine 14 mg 06/15/19 21:00 06/15/19 19:46 Nicoderm Patch TD 14 mg Q24HR FRANCOIS Administration - Exam General Appearance: awake alert Neck: no JVD Heart: RRR, no murmur Respiratory: CTAB Gastrointestinal: soft, normal bowel sounds Extremities: no edema Hosp A/P (1) Intractable nausea and vomiting Code(s): R11.2 - NAUSEA WITH VOMITING, UNSPECIFIED Status: Resolved (2) Hyponatremia Code(s): E87.1 - HYPO-OSMOLALITY AND HYPONATREMIA Status: Acute (3) Cirrhosis Code(s): K74.60 - UNSPECIFIED CIRRHOSIS OF LIVER Status: Chronic Qualifiers: Hepatic cirrhosis type: unspecified hepatic cirrhosis Ascites presence: with ascites Qualified Code(s): K74.60 - Unspecified cirrhosis of liver; R18.8 - Other ascites (4) HLD (hyperlipidemia) Code(s): E78.5 - HYPERLIPIDEMIA, UNSPECIFIED Status: Chronic Qualifiers: Hyperlipidemia type: unspecified Qualified Code(s): E78.5 - Hyperlipidemia , unspecified (5) HTN (hypertension) Code(s): I10 - ESSENTIAL (PRIMARY) HYPERTENSION Status: Chronic Qualifiers: Hypertension type: essential hypertension Qualified Code(s): I10 - Essential (primary) hypertension (6) Hepatitis C Code(s): B19.20 - UNSPECIFIED VIRAL HEPATITIS C WITHOUT HEPATIC COMA Status: Chronic Qualifiers: Viral hepatitis chronicity: unspecified Hepatic coma status: without hepatic coma Qualified Code(s): B19.20 - Unspecified viral hepatitis C without hepatic coma - Plan cont iv saline monitor Na level hold diuretic discussed hyperemesis with THC- results cortysin stimultion equivacol
--- NOTE | 2019-06-16 17:36 | PRG ---
DATE OF SERVICE: 06/16/2019 SUBJECTIVE: Ms. Harevy is feeling a lot better. Nausea has improved. There has been no vomiting. She has been tolerating her diet. No abdominal pain. OBJECTIVE: VITAL SIGNS: Temperature 97.7, pulse 92, blood pressure 94/59, and 100% oxygen saturation on room air. GENERAL: No acute distress. HEART: Regular rate and rhythm. LUNGS: Clear to auscultation bilaterally. ABDOMEN: Nondistended. Bowel sounds present. Soft and nontender to palpation. EXTREMITIES: No peripheral edema. LABORATORY STUDIES: Sodium is up to 126, potassium 4.0, BUN 10, and creatinine 0.80. Total bilirubin 0.9, alkaline phosphatase 61, AST 27, and ALT 20. TSH 1.57, calcium 9.0, and hemoglobin A1c only 4.6. INR is 1.3. ASSESSMENT/PLAN: 1. Hypovolemic hyponatremia. Appreciate the assistance of Nephrology in the primary service. Her sodium level is significantly improved at an appropriate rate with IV hydration and holding the diuretics. Hyponatremia was indeed likely related to over-diuresis. Anticipate that we will be able to back off the diuretic doses that she has chronically been taking, on hospital discharge. We will defer to Nephrology recommendations on this. 2. Cirrhosis, with recent decompensation. 3. Chronic marijuana use. 4. Possible cannabis hyperemesis syndrome. It is unclear whether this recent vomiting episode represented cannabis hyperemesis syndrome or perhaps some viral illness. Regardless, I advised her to quit using marijuana completely. Symptoms are much improved this hospitalization. 5. Ascites. This is the primary manifestation of her recent cirrhosis decompensation, holding diuretics for now. CT on admission demonstrated only minimal ascites, so hopefully will be able to cut back on the frequency of paracentesis as well as diuretic dosing. Job ID: [id number]
[2019-06-16] MEDS: Nicotine 14 MG PATCH TD SCH (20:27)
[2019-06-16] MEDS: Lorazepam 0.5 MG TAB PO PRN (20:31)
[2019-06-17] MEDS: Lorazepam 0.5 MG TAB PO PRN (02:17)
[2019-06-17 06:02] LABS: Anion Gap 8 mmol/L (10-20); BUN (Urea Nitrogen) 6 mg/dL (9.8-20.1); Calc. Creatinine Clearance 67 mL/min (70-130); Calcium 8.5 mg/dL (7.8-10.44); Carbon Dioxide 23 mmol/L (22-29); Chloride 104 mmol/L (98-107); Estimated GFR-MDRD 74; Glucose 85 mg/dL (70-105); Potassium 4.5 mmol/L (3.5-5.1); Sodium 130 mmol/L (136-145)
[2019-06-17 06:03] LABS: #Eosinphils 0.1 thou/uL (0.0-0.7); #Lymphocytes 0.9 thou/uL (1.20-3.40); #Monocytes 0.3 thou/uL (0.11-0.59); #Neutrophils 1.9 thou/uL (1.40-6.50); %Basophils 0.1 % (0.0-1.0); %Eosinophils 2.2 % (0.0-10.0); %Lymphocytes 29.2 % (21.0-51.0); %Neutrophils 60.4 % (42.0-75.0); Hemoglobin 11.4 g/dL (12.0-16.0); Mean Corpuscular HGB CONC 36.1 g/dL (32.0-36.0); Mean Corpuscular Hemoglobin 37.1 pg (27.0-31.0); Platelet Count 108 thou/uL (130-400); Red Blood Cell (RBC) Count 3.08 mill/uL (4.20-5.40); White Blood Cell (WBC) Count 3.1 thou/uL (4.8-10.8)
[2019-06-17 06:19] LABS: Anion Gap 9 mmol/L (10-20); BUN (Urea Nitrogen) 5 mg/dL (9.8-20.1); Calc. Creatinine Clearance 68 mL/min (70-130); Calcium 8.4 mg/dL (7.8-10.44); Carbon Dioxide 19 mmol/L (22-29); Chloride 103 mmol/L (98-107); Estimated GFR-MDRD 75; Glucose 76 mg/dL (70-105); Sodium 127 mmol/L (136-145)
[2019-06-17 08:11] VITALS: BP 103/65; TEMP 97.7
[2019-06-17] MEDS: Enoxaparin Sodium 40 MG/0.4 ML SYRINGE SC SCH (08:56)
[2019-06-17] MEDS: Famotidine 20 MG TAB PO SCH (08:57)
--- NOTE | 2019-06-17 09:18 | PRG ---
DATE OF SERVICE: 06/17/2019 SUBJECTIVE: Ms. Harvey is a 58-year-old white female with cirrhosis and was initially seen for hyponatremia. Initial diagnosis is she may have hypovolemic hyponatremia. Empiric volume repletion was given, it improved her serum sodium from 108 to a most recent value of 127; however, the Cortrosyn stimulation test shows of borderline result. I have not excluded in the near future on starting her on hydrocortisone at 10 mg b.i.d. Continue free water restriction. No other complaints. She is eating better. We will discontinue her IV fluid. OBJECTIVE: VITAL SIGNS: Blood pressure 103/65, heart rate 82, respiratory rate 18, temperature 97.8, and pulse ox 100%. GENERAL: Noted to be awake, alert, comfortable, not in distress. SKIN: Adequate turgor. HEENT: Pinkish conjunctivae. Anicteric sclerae. NECK: No neck mass. No carotid bruits. No JVD. CHEST: No deformities. LUNGS: Clear breath sounds. No wheezing. No crackles. HEART: Normal sinus rhythm. No murmur. No gallops. No rubs. ABDOMEN: Globular, soft, nontender. No masses. EXTREMITIES: No edema. No deformities. MEDICATIONS: Of June 17, 2019, were reviewed. LABORATORY DATA: Laboratories of June 17, 2019; white count 3.1, hemoglobin 11.4. Sodium 127, potassium 4, chloride 103, carbon dioxide 19, BUN 5, creatinine 0.79, glucose 76, and calcium 8.4. ASSESSMENT AND PLAN: 1. Hyponatremia, secondary to hypovolemic hyponatremia. Serum sodium is 127. Unclear if she will return to normal baseline. We will continue to observe, continue free water restriction. As previously mentioned, we will consider in the near future whether to start her on hydrocortisone. An Endocrinology consult may be indicated as an outpatient. 2. Cirrhosis, stable, followed by GI. 3. From a Renal point of view, the patient can be discharged. We will follow her up at the outpatient renal clinic. Job ID: [id number]
--- NOTE | 2019-06-17 10:52 | DIS ---
DATE OF ADMISSION: 06/14/2019 DATE OF DISCHARGE: 06/17/2019 PRIMARY CARE DOCTOR: No local primary care doctor. DISPOSITION: Discharged to home. FINAL DIAGNOSES: 1. Hyponatremia. 2. Cirrhosis of the liver. 3. Nausea and vomiting. 4. THC abuse. 5. Dyslipidemia. 6. Hypertension. 7. Hepatitis C. DISCHARGE MEDICATIONS: 1. Albuterol HFA one puff twice a day p.r.n. 2. Vitamin B12, 1000 mcg a day. 3. Protonix 40 mg twice a day. 4. Folic acid 1 mg a day. 5. Spironolactone 50 mg twice a day. 6. Pravastatin 20 mg a day. 7. Nortriptyline 25 mg at bedtime. ALLERGIES: CODEINE, IODINE CONTAINING CONTRAST. CODE STATUS: Full. PENDING AT THE TIME OF DISCHARGE: Nothing. DIET: As tolerated at this point. HOSPITAL COURSE: The patient was admitted to the hospital through [facility] with nausea, vomiting, and diarrhea. The patient was found to be severely hyponatremic with a sodium of 108. The patient had been on Lasix plus spironolactone. She was considered that her hyponatremia was related to nausea, vomiting, and aggressive diuresis. She was seen in consultation by Dr. Martin Yo who recommended gentle potassium replacement. She was seen by Dr. Dez Irwin, Gastroenterology about her hepatitis C, who is agreed with the cannabis hyperemesis syndrome. The patient was counseled on this. She said she used a THC to stimulate her appetite during her hospital stay. Her sodium 108 on 06/14, 119 on 06/15; and 127 today. Her CBC has been unremarkable during her hospital stay, except for a mild decreased white count, mild decreased platelet count. Urine drug screen was positive for THC, which she readily admitted to. She is being discharged to follow up with her PCP in 3 days, her Lasix has been discontinued. The spironolactone has been continued. She will of course need counseling on diet and diuretics and followup. However, because of her significant potassium depletion at the time of admission, we were not restricting fluids, etc, in her diet at this time. Job ID: [id number]
== END 2019-06-17 13:23 | disposition home or self-care (01) | DRG 641 ==
LOC: ERS 09:55 → ERHOLD 13:09 → 2NO 18:42 → T4-B 06-15 19:26
PROVIDERS: ADMIT Family Medicine; ATTEND Family Medicine
DX: E87.1 Hypo-osmolality and hyponatremia (principal); R18.8 Other ascites; F17.210 Nicotine dependence, cigarettes, uncomplicated; E78.5 Hyperlipidemia, unspecified; K74.60 Unspecified cirrhosis of liver; B19.20 Unspecified viral hepatitis C without hepatic coma; F12.188 Cannabis abuse with other cannabis-induced disorder; J44.9 Chronic obstructive pulmonary disease, unspecified; R11.15 Cyclical vomiting syndrome unrelated to migraine; T50.1X5A Adverse effect of loop [high-ceiling] diuretics, initial encounter; Z90.49 Acquired absence of other specified parts of digestive tract; Z88.5 Allergy status to narcotic agent; Z91.041 Radiographic dye allergy status; Z90.710 Acquired absence of both cervix and uterus; Z98.51 Tubal ligation status; E86.0 Dehydration; R11.10 Vomiting, unspecified; F12.988 Cannabis use, unspecified with other cannabis-induced disorder
CPT/HCPCS: 36415; 36416; 74177; 80048; 80076; 80306; 80400; 81003; 82570; 83036; 83690; 83930; 84300; 84443; 85025; 85610; 85730; 87324; 87449; 93005; 96361; 96365; 96366; 96375; 96376; J0834; J1200; J1650; J2765; J2930; Q9967; S0028

== ENCOUNTER 2019-07-08 09:59 | Day surgery (SDC) | payer MEDICARE, MEDICAID ==
[2019-07-07 13:29] VITALS: BMI 21.6
[2019-07-08] MEDS ORDERED: Albumin 25% 200 ML ONE (10:27)
--- NOTE | 2019-07-08 12:33 | ULT ---
Exam: Ultrasound guided paracentesis HISTORY: Ascites COMPARISON: Prior exam dated April 19, 2019 FINDINGS: Successful ultrasound-guided paracentesis. Total of 3.9 L of normal appearingascites was as pirated. TECHNIQUE: Consent obtained reformatory ultrasound-guided paracentesis. Right lower quadrant was deem ed appropriate. Skin was prepped and draped in a sterile fashion. 1% lidocaine, buffered with sodium bicarbonate was used for local anesthesia. Under ultrasound guidance, a 5 Faroese 7 cm Yueh cat heter is advanced in the peritoneal space. A total of 3.9 L of normal appearingascites was aspirated. No immediate or postprocedural complications IMPRESSION: Successful ultrasound-guided paracentesis.
[2019-07-08 12:52] VITALS: BP 88/57; TEMP 97.9
== END 2019-07-08 11:50 | disposition home or self-care (01) ==
LOC: ULT 09:59
PROVIDERS: ATTEND Internal Medicine
PROC: 0W9G3ZZ Drainage of Peritoneal Cavity, Percutaneous Approach (ICD-10-PCS; principal; 2019-07-08)
DX: K74.60 Unspecified cirrhosis of liver (principal); R18.8 Other ascites; I10 Essential (primary) hypertension; K21.9 Gastro-esophageal reflux disease without esophagitis; J44.9 Chronic obstructive pulmonary disease, unspecified; F41.9 Anxiety disorder, unspecified; F32.9 Major depressive disorder, single episode, unspecified; Z79.899 Other long term (current) drug therapy; Z88.5 Allergy status to narcotic agent; Z91.041 Radiographic dye allergy status
CPT/HCPCS: 49083; P9047

== ENCOUNTER 2019-07-30 07:29 | Day surgery (SDC) | payer MEDICARE, MEDICAID ==
[2019-07-29 11:34] VITALS: BMI 22.1
[2019-07-30] MEDS ORDERED: Sodium Bicarbonate 2.5 MEQ/5 ML VIAL ONE (08:45)
[2019-07-30] MEDS ORDERED: Lidocaine 1% PF 5 ML VIAL ONE (08:45)
[2019-07-30] MEDS ORDERED: Albumin 25% 200 ML ONE (08:45)
[2019-07-30 10:16] VITALS: BP 107/65; TEMP 98.1
--- NOTE | 2019-07-30 11:19 | ULT ---
Ultrasound-guided paracentesis: HISTORY: Symptomatic ascites FINDINGS: Informed consent obtained prior to the procedure. Preprocedural imaging demonstrated intrap eritoneal free fluid. An area was marked in the right mid abdomen mid axillary line, and then meticulously prepped and drap ed in normal sterile fashion and anesthetized with 1% buffered lidocaine. With direct sonographic guidance, a 19-gauge needle and 5 Italian Yueh catheter were advanced into the abdomen. After the return of fluid, the catheter was advanced, and the needle was removed. Approximately 3.4 L of brownish colored fluid was aspirated. The introducer sheath was removed, and h emostasis was achieved with direct pressure. A dry sterile dressing was placed. The patient tolerated the procedure well and without immediate complication. IMPRESSION: Technically successful ultrasound-guided paracentesis.
== END 2019-07-30 09:35 | disposition home or self-care (01) ==
LOC: ULT 07:29
PROVIDERS: ATTEND Internal Medicine
PROC: 0W9G3ZZ Drainage of Peritoneal Cavity, Percutaneous Approach (ICD-10-PCS; principal; 2019-07-30)
DX: K74.60 Unspecified cirrhosis of liver (principal); R18.8 Other ascites; J44.9 Chronic obstructive pulmonary disease, unspecified; I10 Essential (primary) hypertension; F41.9 Anxiety disorder, unspecified; F32.9 Major depressive disorder, single episode, unspecified; K21.9 Gastro-esophageal reflux disease without esophagitis; Z79.899 Other long term (current) drug therapy; Z88.5 Allergy status to narcotic agent; Z91.041 Radiographic dye allergy status
CPT/HCPCS: 49083; P9047; J2001

== ENCOUNTER 2019-08-03 17:54 | Inpatient (IN) | payer MEDICARE, MEDICAID ==
[2019-08-03 18:31] LABS: #Eosinphils 0.2 thou/uL (0.0-0.7); #Lymphocytes 1.1 thou/uL (1.20-3.40); #Monocytes 0.5 thou/uL (0.11-0.59); #Neutrophils 6.6 thou/uL (1.40-6.50); %Basophils 0.4 % (0.0-1.0); %Eosinophils 2.5 % (0.0-10.0); %Monocytes 6.4 % (0.0-10.0); %Neutrophils 77.8 % (42.0-75.0); Mean Corpuscular HGB CONC 35.6 g/dL (32.0-36.0); Mean Corpuscular Hemoglobin 35.9 pg (27.0-31.0); Platelet Count 166 thou/uL (130-400); RBC Distribution Width 11.3 % (11.5-14.5); Red Blood Cell (RBC) Count 4.19 mill/uL (4.20-5.40); White Blood Cell (WBC) Count 8.4 thou/uL (4.8-10.8)
[2019-08-03] MEDS ORDERED: Ondansetron PF 4 MG/2 ML Vial ONE (18:32)
[2019-08-03 18:53] LABS: ALT (SGPT) 13 U/L (8-55); AST (SGOT) 25 U/L (5-34); Albumin 4.4 g/dL (3.5-5.0); Alkaline Phosphatase 52 U/L (40-110); Anion Gap 14 mmol/L (10-20); BUN (Urea Nitrogen) 8 mg/dL (9.8-20.1); Bilirubin, Total 0.7 mg/dL (0.2-1.2); Calc. Creatinine Clearance 0 mL/min (70-130); Calcium 9.5 mg/dL (7.8-10.44); Carbon Dioxide 22 mmol/L (22-29); Chloride 81 mmol/L (98-107); Estimated GFR-MDRD 55; Globulin 3.8 g/dL (2.4-3.5); Glucose 97 mg/dL (70-105); Potassium 5.6 mmol/L (3.5-5.1); Protein, Total 8.2 g/dL (6.0-8.3)
[2019-08-03 18:56] LABS: Sodium 111 mmol/L (136-145)
--- NOTE | 2019-08-03 21:04 | PDOC.EVN ---
Event Note - Event Note Event Note: [id number]
[2019-08-03] MEDS: Nicotine 14 MG PATCH TD SCH (23:11)
[2019-08-03] MEDS: Sodium Chloride 0.9% 1,000 ML IV SCH (23:11)
[2019-08-03] MEDS: Famotidine/PF 20 mg/2ml Vial SLOW IVP SCH (23:11)
[2019-08-03] MEDS ORDERED: Lorazepam 0.5 MG TAB PO SCH (23:15)
[2019-08-03] MEDS: Ondansetron PF 4 MG/2 ML Vial IVP PRN (23:20)
[2019-08-04 00:12] LABS: Anion Gap 9 mmol/L (10-20); BUN (Urea Nitrogen) 9 mg/dL (9.8-20.1); Calc. Creatinine Clearance 67 mL/min (70-130); Calcium 8.6 mg/dL (7.8-10.44); Carbon Dioxide 22 mmol/L (22-29); Chloride 88 mmol/L (98-107); Estimated GFR-MDRD 70; Glucose 85 mg/dL (70-105)
[2019-08-04 00:16] LABS: Sodium 114 mmol/L (136-145)
[2019-08-04] MEDS: Sodium Chloride 0.9% 1,000 ML IV SCH (03:38)
--- NOTE | 2019-08-04 03:45 | HP ---
CHIEF COMPLAINT: Generalized weakness, nausea, and vomiting. HISTORY OF PRESENT ILLNESS: Ms. Harvey is a 59-year-old female with past medical history of liver cirrhosis, hepatitis C, hypertension, hyperlipidemia, among others, presented to the emergency room with generalized weakness and abnormal labs. The patient was found to be hyponatremic and hyperkalemic. In the ER, her sodium is 111 and potassium is 5.6. The patient has been on diuretics including spironolactone, which was increased recently. ED physician discussed the case with biophysics scientist, who advised to start the patient on IV normal saline and to recheck her sodium level in few hours. The patient denies fever or chills. The patient is being admitted to hospital for further management. PAST MEDICAL HISTORY: 1. Hepatitis C. 2. Liver cirrhosis. 3. Hypertension. 4. Hyperlipidemia. 5. COPD. PAST SURGICAL HISTORY: 1. Cholecystectomy. 2. Hysterectomy. 3. Right foot surgery. 4. Tubal ligation. FAMILY HISTORY: Reviewed and noncontributory. HOME MEDICATIONS: Please see home medication reconciliation form for updated medications. ALLERGIES: ALLERGIC TO CODEINE AND IODINE. REVIEW OF SYSTEMS: Review of 14 systems negative except what is mentioned in history of present illness. PHYSICAL EXAMINATION: GENERAL: The patient is awake, alert, in moderate distress. VITAL SIGNS: Blood pressure 105/55, pulse is 75, respiratory rate is 18, and temperature is 98.2. HEAD AND NECK: Normocephalic, atraumatic. NECK: Supple. No JVD. CHEST: Fair bilateral air entry. HEART: S1, S2. Regular. ABDOMEN: Mildly distended. Soft. Bowel sounds present. NEUROLOGIC: Awake, alert, oriented x3. No focal deficits. PSYCH: Normal mood. EXTREMITIES: No clubbing or cyanosis. LABORATORY DATA: Sodium 111 and potassium 5.6. WBC count is 8.4, hemoglobin , and platelets 166. ASSESSMENT: 1. Acute hyponatremia. 2. Nausea and vomiting. 3. Generalized weakness. 4. Liver cirrhosis. 5. Hepatitis C. PLAN: 1. Admit. 2. We will start the patient on IV fluids NS at 100 mL/hour as per biophysics scientist. 3. We will recheck electrolytes including sodium and potassium level in 4 hours and reassess. 4. The patient will be admitted to [facility] for close monitoring. 5. Hold diuretics for tonight. 6. Labor Crew Supervisor consulted for evaluation and further management. 7. Reconcile home medications. 8. DVT prophylaxis appropriate. 9. Expected length of stay, 2 midnights or more. Case was discussed with ED physician, patient, and also discussed with biophysics scientist. Job ID: [id number]
[2019-08-04 04:07] LABS: Anion Gap 10 mmol/L (10-20); BUN (Urea Nitrogen) 9 mg/dL (9.8-20.1); Calc. Creatinine Clearance 68 mL/min (70-130); Calcium 8.8 mg/dL (7.8-10.44); Carbon Dioxide 18 mmol/L (22-29); Chloride 93 mmol/L (98-107); Estimated GFR-MDRD 71; Glucose 81 mg/dL (70-105); Potassium 4.9 mmol/L (3.5-5.1)
[2019-08-04 04:13] LABS: Sodium 116 mmol/L (136-145)
--- NOTE | 2019-08-04 05:26 | CON ---
DATE OF CONSULTATION: 08/03/2019 CONSULTING PHYSICIAN: Dr. Obando. REASON FOR CONSULTATION: Hyponatremia. REASON FOR ADMISSION: Abnormal labs. HISTORY OF PRESENT ILLNESS: This is a 59-year-old female with history of cirrhosis, hyponatremia, hepatitis C, COPD, came to the hospital with abnormal dialysis. She had labs done by GI and was found to have hyponatremia, hyperkalemia, was sent to the hospital. The patient is feeling better. She has been having vomiting and has been drinking water. No fever or chills. No chest pain, or palpitation reported. No skin rash. PAST MEDICAL HISTORY: Positive for cirrhosis, hepatitis C, hyperlipidemia, hypertension, COPD. PAST SURGICAL HISTORY: , hysterectomy, right foot surgery, and tubal ligation. HOME MEDICATIONS: Reviewed. ALLERGIES: CODEINE AND IODINE. SOCIAL HISTORY: No smoking, alcohol, or illicit drug use. History of alcohol use in the past. FAMILY HISTORY: No history of kidney disease. REVIEW OF SYSTEMS: CONSTITUTIONAL: Negative for weight loss or gain, ability to conduct usual activities. SKIN: Negative for rash, itching. EYES: Negative for double vision, pain. ENT/MOUTH: Negative for nose bleeding, neck stiffness, pain, tenderness. CARDIOVASCULAR: Negative for palpitations, dyspnea on exertion, orthopnea. RESPIRATORY: Negative for shortness of breath, wheezing, cough, hemoptysis, fever or night sweats. GASTROINTESTINAL: Negative for poor appetite, abdominal pain, heartburn, nausea, vomiting, constipation, or diarrhea. GENITOURINARY: Negative for urgency, frequency, dysuria, nocturia. MUSCULOSKELETAL: Negative for pain, swelling. NEUROLOGIC/PSYCHIATRIC: Negative for anxiety, depression. ALLERGY/IMMUNOLOGIC: Negative for skin rash, bleeding tendency. Rest all negative review of systems. PHYSICAL EXAMINATION: GENERAL: This is a well-built female, in no apparent distress. VITAL SIGNS: Temperature 98.2, pulse 92, respiratory rate 18, blood pressure 141/65. HEENT: Atraumatic, normocephalic. Oral mucosa is moist. NECK: Supple. CV: S1 and S2 heard. Rate and rhythm clear. RESPIRATORY: Clear. GASTROINTESTINAL: Abdomen is soft. MUSCULOSKELETAL: 1+ edema. DERMATOLOGIC: No skin rash. NEUROLOGIC: Alert and awake. PSYCHIATRIC: Mood and affect normal. LABORATORY DATA: Sodium is 111, potassium 5.6, BUN is 8, and creatinine is 1.04. ASSESSMENT AND PLAN: 1. Hyponatremia, most likely from volume depletion. Agree with IV hydration. Check sodium q.4-6 hours. 2. Hyperkalemia. Stop spironolactone and monitor. 3. Hypochloremia. 4. Edema, controlled. 5. Hypertension, stable. 6. History of cirrhosis. 7. Hepatorenal syndrome. 8. Monitor sodium closely. Continue IV fluids. If not getting better, consider 3% saline. Plan discussed with Dr. Walter. We will follow. Thank you for the consult. Job ID: [id number]
[2019-08-04] MEDS: Famotidine/PF 20 mg/2ml Vial SLOW IVP SCH ×2 (08:57→20:12)
[2019-08-04 09:20] LABS: Anion Gap 8 mmol/L (10-20); BUN (Urea Nitrogen) 8 mg/dL (9.8-20.1); Calc. Creatinine Clearance 67 mL/min (70-130); Calcium 8.9 mg/dL (7.8-10.44); Carbon Dioxide 24 mmol/L (22-29); Chloride 92 mmol/L (98-107); Estimated GFR-MDRD 71; Glucose 83 mg/dL (70-105); Potassium 4.8 mmol/L (3.5-5.1)
[2019-08-04 09:27] LABS: Sodium 119 mmol/L (136-145)
--- NOTE | 2019-08-04 09:27 | PRG ---
DATE OF SERVICE: 08/04/2019 SUBJECTIVE: The patient is seen and examined at the bedside. She feels somewhat better this morning. She got some rest last night. OBJECTIVE: VITAL SIGNS: Blood pressure is 90/62, heart rate 84, respiratory rate is 19, O2 saturation 100% on room air, temperature is 97.6. HEENT: Eyes are PERRLA. Sclerae are nonicteric. Oral mucosa is dry. NECK: Supple. LUNGS: Clear. HEART: S1 and S2 normal. No S3. No S4. ABDOMEN: Soft. Mildly tender in the right epigastric area. No guarding. No masses. EXTREMITIES: No clubbing, cyanosis, or edema. NEUROLOGIC: She is alert and oriented x4. There are no any motor or sensory deficits. LABORATORY DATA: Labs showed sodium of 116, potassium 4.9, chloride 93, CO2 of 18, creatinine 0.83, BUN 9, calcium 8.8, and glucose 81. Urine osmolality 130. Urine sodium 38. IMPRESSION: 1. Severe hyponatremia, most likely secondary to vomiting and diuretics use. She was on Lasix and spironolactone according to her. 2. Nausea and vomiting. 3. Generalized weakness. 4. Liver cirrhosis. 5. Hepatitis C. PLAN: Plan is to continue IV fluids. We feel that she is volume depleted. Her blood pressure is running on the lower side, but because of the low sodium situation, I am going to avoid any boluses of normal saline at this situation. She seems to be comfortable with a systolic blood pressure around 90. The patient was seen by Dr. Davalos, who recommends to continue current regimen. Also, we will continue her nicotine patch since she is actively smoking. Also, we will reconcile her home medications. Job ID: [id number]
[2019-08-04] MEDS ORDERED: Sodium Chloride 0.9% 1,000 ML IV SCH (10:09)
--- NOTE | 2019-08-04 10:28 | PRG ---
DATE OF SERVICE: 08/04/2019 SUBJECTIVE: Patient was seen and examined at bedside and overnight events noted. Patient denies any shortness of breath or chest pain or palpitation. No history of nausea or vomiting or diarrhea or fever or chills or cramps. OBJECTIVE: GENERAL: This is a well-built female, in no apparent distress. VITAL SIGNS: Temperature 97.6. Heart rate 83. Respiratory rate 20. Blood pressure 93/69. HEENT: Atraumatic, normocephalic. Oral mucosa is moist NECK: Supple. CARDIOVASCULAR: S1, S2 heard. Rate and rhythm regular. RESPIRATORY: Clear to auscultation. GASTROINTESTINAL: Abdomen is soft. MUSCULOSKELETAL: No tenderness. No edema. DERMATOLOGIC: No skin rash. NEUROLOGIC: Alert and awake and oriented X3. No focal neurologic deficits. Moving all the extremities. PSYCHIATRIC: Mood and affect normal. LABORATORY DATA: Sodium is 119 from 111 yesterday at 6 p.m. We will reduce NS to 50 mL an hour. ASSESSMENT AND PLAN: 1. Hyponatremia - severe, better. 2. Hyperkalemia, better. 3. Hypertension. 4. History of cirrhosis 5. Edema - controlled. Sodium with appropriate correction. Plan is to stop IV fluids and then monitor sodium. Continue on fluid restriction for now. Job ID: [id number] [facility]
[2019-08-04 12:21] VITALS: BMI 21.5
[2019-08-04 13:32] LABS: Anion Gap 9 mmol/L (10-20); BUN (Urea Nitrogen) 9 mg/dL (9.8-20.1); Calc. Creatinine Clearance 61 mL/min (70-130); Calcium 9.2 mg/dL (7.8-10.44); Carbon Dioxide 24 mmol/L (22-29); Chloride 94 mmol/L (98-107); Estimated GFR-MDRD 64; Glucose 82 mg/dL (70-105); Potassium 4.7 mmol/L (3.5-5.1); Sodium 122 mmol/L (136-145)
[2019-08-04] MEDS: Nicotine 14 MG PATCH TD SCH (16:19)
[2019-08-04] MEDS ORDERED: Lorazepam 2 MG/ML VIAL SLOW IVP SCH (16:45)
[2019-08-04] MEDS: Nicotine 21 MG PATCH TOP SCH (16:47)
[2019-08-04 17:24] LABS: Anion Gap 10 mmol/L (10-20); BUN (Urea Nitrogen) 10 mg/dL (9.8-20.1); Calc. Creatinine Clearance 56 mL/min (70-130); Calcium 9.4 mg/dL (7.8-10.44); Carbon Dioxide 22 mmol/L (22-29); Chloride 94 mmol/L (98-107); Estimated GFR-MDRD 57; Glucose 135 mg/dL (70-105); Sodium 121 mmol/L (136-145)
--- NOTE | 2019-08-04 18:39 | CON ---
DATE OF CONSULTATION: 08/04/2019 REASON FOR CONSULTATION: IMCU management. 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 She had been taking spironolactone and Lasix at home. She actually did not feel too bad. She has been seen by the Nephrology Service and the Hospitalist group. Her sodium is correcting at the appropriate rate. Her diuretics are currently being held. She is walking in the room without any difficulty. She has had no altered mental status and no seizure activity. PAST MEDICAL HISTORY: 1. Cirrhosis. 2. Hepatitis C. 3. Hypertension. 4. Hyperlipidemia. 5. COPD. PAST SURGICAL HISTORY: 1. Cholecystectomy. 2. Hysterectomy. 3. Right foot surgery. 4. Tubal ligation. FAMILY MEDICAL HISTORY: Unremarkable. MEDICATIONS: Prior to admission: 1. Benadryl. 2. Folvite. 3. Spironolactone. 4. Pravastatin. 5. Albuterol. 6. Protonix. 7. Lasix. 8. Ferrous sulfate. 9. Vitamin B12. SOCIAL HISTORY: Does not consume alcohol. Not currently smoking. REVIEW OF SYSTEMS: Has periodic ascites requiring paracentesis. No fever, chills, nausea, vomiting, hematemesis, melena, hematochezia, hematuria, or dysuria. PHYSICAL EXAMINATION: VITAL SIGNS: Temperature 97.8, pulse 93, blood pressure 98/55, and O2 saturation 100%. GENERAL: Awake and alert, in no distress. HEENT: Pupils react. Sclerae anicteric. Oropharynx clear. NECK: No adenopathy or JVD. CHEST: Clear. CARDIAC: S1 and S2. Regular. ABDOMEN: Soft, has a mild amount of ascites. EXTREMITIES: No clubbing, cyanosis, or edema. LABORATORY DATA: White blood cell count 8.4, hematocrit 42, and platelet count 166. Sodium 122, potassium 4.7, chloride 94, CO2 of 24, BUN 9, creatinine 0.9, and glucose 82. ASSESSMENT: 1. Asymptomatic severe hyponatremia. 2. Cirrhosis. PLAN: Likely this was hyponatremia caused by spironolactone and Lasix in conjunction with excess water drinking by the patient. She is correcting her sodium slowly. RECOMMENDATION: Agree with current treatment. From my standpoint, the patient can be transferred out to the medical floor. Pulmonary available as needed. Job ID: [id number]
[2019-08-04 21:16] LABS: Anion Gap 9 mmol/L (10-20); BUN (Urea Nitrogen) 9 mg/dL (9.8-20.1); Calc. Creatinine Clearance 53 mL/min (70-130); Carbon Dioxide 23 mmol/L (22-29); Chloride 95 mmol/L (98-107); Estimated GFR-MDRD 54; Glucose 88 mg/dL (70-105); Potassium 4.7 mmol/L (3.5-5.1); Sodium 122 mmol/L (136-145)
[2019-08-05] MEDS: Lorazepam 0.5 MG TAB PO PRN ×3 (00:30→11:20)
[2019-08-05 03:58] LABS: ALT (SGPT) 11 U/L (8-55); AST (SGOT) 20 U/L (5-34); Albumin 3.8 g/dL (3.5-5.0); Alkaline Phosphatase 44 U/L (40-110); Anion Gap 10 mmol/L (10-20); BUN (Urea Nitrogen) 9 mg/dL (9.8-20.1); Bilirubin, Total 0.5 mg/dL (0.2-1.2); Calc. Creatinine Clearance 54 mL/min (70-130); Calcium 9.2 mg/dL (7.8-10.44); Carbon Dioxide 23 mmol/L (22-29); Chloride 94 mmol/L (98-107); Estimated GFR-MDRD 55; Globulin 3.2 g/dL (2.4-3.5); Glucose 103 mg/dL (70-105); Potassium 4.7 mmol/L (3.5-5.1); Sodium 122 mmol/L (136-145)
[2019-08-05] MEDS: Folic Acid 1 MG TAB PO SCH (07:56)
[2019-08-05] MEDS: Cyanocobalamin (Vitamin B-12) 1,000 MCG TAB PO SCH (07:56)
[2019-08-05] MEDS: Famotidine/PF 20 mg/2ml Vial SLOW IVP SCH ×2 (07:57→21:00)
--- NOTE | 2019-08-05 10:35 | PRG ---
DATE OF SERVICE: 08/05/2019 SUBJECTIVE: Patient was seen and examined at bedside and overnight events noted. Patient denies any shortness of breath or chest pain or palpitation. No history of nausea or vomiting or diarrhea or fever or chills or cramps. OBJECTIVE: GENERAL: This is a well-built female, in no apparent distress. VITAL SIGNS: Temperature 97.9. Heart rate 85. Respiratory rate . Blood pressure 109/73. HEENT: Atraumatic, normocephalic. Oral mucosa is moist. NECK: Supple. CARDIOVASCULAR: S1, S2 heard. Rate and rhythm regular. RESPIRATORY: Clear to auscultation. GASTROINTESTINAL: Abdomen is soft. MUSCULOSKELETAL: No tenderness. No edema. DERMATOLOGIC: No skin rash. NEUROLOGIC: Alert and awake and oriented x3. No focal neurologic deficits. Moving all the extremities. PSYCHIATRIC: Mood and affect normal. LABORATORY DATA: Sodium 122, potassium is 4.7, BUN is 9, and creatinine is 1.04. ASSESSMENT AND PLAN: 1. Hyponatremia, severe, much better. We will continue close monitoring and adjust the rate of correction. 2. Hyperkalemia, better. Limit potassium. 3. Edema . 4. Hypertension. 5. History of cirrhosis. Plan to monitor sodium and adjust the correction at the desired level. Job ID: [id number]
[2019-08-05 11:04] LABS: Anion Gap 10 mmol/L (10-20); BUN (Urea Nitrogen) 8 mg/dL (9.8-20.1); Calc. Creatinine Clearance 61 mL/min (70-130); Calcium 9.4 mg/dL (7.8-10.44); Carbon Dioxide 26 mmol/L (22-29); Chloride 92 mmol/L (98-107); Estimated GFR-MDRD 65; Glucose 86 mg/dL (70-105); Magnesium 1.8 mg/dL (1.6-2.6); Phosphorus 3.6 mg/dL (2.3-4.7); Potassium 4.8 mmol/L (3.5-5.1); Sodium 123 mmol/L (136-145)
[2019-08-05] MEDS: Nicotine 21 MG PATCH TOP SCH (12:22)
[2019-08-05 14:19] LABS: Potassium 4.4 mmol/L (3.5-5.1)
[2019-08-05] MEDS: Ondansetron PF 4 MG/2 ML Vial IVP PRN (16:31)
[2019-08-05] MEDS: Sodium Chloride 0.9% 1,000 ML IV SCH (18:16)
[2019-08-05 20:37] LABS: Potassium 4.7 mmol/L (3.5-5.1)
[2019-08-05] MEDS ORDERED: Nicotine 14 MG PATCH TD PRN (21:00)
--- NOTE | 2019-08-05 21:27 | PRG ---
DATE OF SERVICE: 08/05/2019 SUBJECTIVE: A 59-year-old female with cirrhosis, chronic hepatitis C, hypertension, presented to the emergency room 2 days ago with generalized weakness along with nausea and vomiting. Her labs were consistent with sodium of 111 with potassium of 5.6. She was closely monitored in the IMCU. 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 Her sodium is gradually improving. Diuretics are currently held. At this time, the patient denies any nausea, vomiting, or abdominal pain. REVIEW OF SYSTEMS: As discussed above, no chest pain, palpitations, fever, or chills. PHYSICAL EXAMINATION: VITAL SIGNS: Temperature 97.2, pulse rate of 93, respiration of 16, blood pressure 104/74, and O2 saturation 99% on room air. GENERAL: A 59-year-old female in no apparent distress. LUNGS: Clear to auscultation bilaterally. HEART: S1, S2 present. Regular. ABDOMEN: Abdomen was soft. Bowel sounds present. EXTREMITIES: No calf tenderness. NEUROLOGIC: Grossly nonfocal. CURRENT MEDICATIONS: Were reviewed. LABORATORY FINDINGS: Sodium of 123 with potassium 4.8, BUN of 8, creatinine 0.89, magnesium 1.8. LFTs in normal range. IMPRESSION: 1. Nausea and vomiting secondary to hypotonic hyponatremia, improving. 2. Hyperkalemia, resolved. 3. Chronic hepatitis C with cirrhosis. 4. Generalized weakness, multifactorial. 5. Hyperlipidemia. 6. Hypertension. 7. Tobacco dependence. PLAN: The patient is stable for transition to the medical floor. We will continue IV fluids per Nephrology. We will monitor labs closely. Continue fluid restriction. Lasix and Aldactone are currently on hold. We will continue other medications. Job ID: [id number]
[2019-08-06] MEDS: Sodium Chloride 0.9% 1,000 ML IV SCH ×2 (07:22→16:55)
[2019-08-06] MEDS: Famotidine/PF 20 mg/2ml Vial SLOW IVP SCH (08:16)
[2019-08-06] MEDS: Ondansetron PF 4 MG/2 ML Vial IVP PRN (08:16)
[2019-08-06] MEDS: Cyanocobalamin (Vitamin B-12) 1,000 MCG TAB PO SCH (08:17)
[2019-08-06] MEDS: Folic Acid 1 MG TAB PO SCH (08:17)
[2019-08-06] MEDS: Lorazepam 0.5 MG TAB PO PRN (08:17)
--- NOTE | 2019-08-06 09:04 | PRG ---
DATE OF SERVICE: 08/06/2019 SUBJECTIVE: Patient was seen and examined at bedside and overnight events noted. Patient denies any shortness of breath or chest pain or palpitation. No history of nausea or vomiting or diarrhea or fever or chills or cramps. OBJECTIVE: GENERAL: This is a thin-built female, in no apparent distress. VITAL SIGNS: Temperature 98.7. Heart rate 90. Respiratory rate 16. Blood pressure 110/69. HEENT: Atraumatic, normocephalic. Oral mucosa is moist. NECK: Supple. CARDIOVASCULAR: S1, S2 heard. Rate and rhythm regular. RESPIRATORY: Clear to auscultation. GASTROINTESTINAL: Abdomen is soft. MUSCULOSKELETAL: No tenderness. No edema. DERMATOLOGIC: No skin rash. NEUROLOGIC: Alert and awake and oriented x3. No focal neurologic deficits. Moving all the extremities. PSYCHIATRIC: Mood and affect normal. LABORATORY DATA: Not done this morning. Sodium is 123 last night and IV fluids were started. ASSESSMENT AND PLAN: 1. Severe hyponatremia, most likely from volume depletion since she responded well to IV fluids. Sodium level was slowly getting corrected appropriately and started on IV fluids yesterday. Our plan is to recheck labs in the morning, today. 2. Hyperkalemia, better, most likely stable after holding the diuretics, especially Aldactone. 3. Edema, seems to be under control. 4. Hypertension. 5. Constipation. Follow with Primary Team. 6. History of cirrhosis. Recheck sodium today and continue IV fluids for now and monitor sodium level closely. Job ID: [id number]
[2019-08-06 09:11] LABS: Anion Gap 11 mmol/L (10-20); BUN (Urea Nitrogen) 7 mg/dL (9.8-20.1); Calc. Creatinine Clearance 58 mL/min (70-130); Carbon Dioxide 23 mmol/L (22-29); Chloride 96 mmol/L (98-107); Estimated GFR-MDRD 62; Glucose 98 mg/dL (70-105); Potassium 4.5 mmol/L (3.5-5.1); Sodium 125 mmol/L (136-145)
--- NOTE | 2019-08-06 18:25 | PDOC.HOSPP ---
- Subjective Encounter Date: 08/06/19 Encounter Time: 13:30 Subjective: Patient seen and examined for hyponatremia/gen weakness. Feels gen weak. No new complaints. No overnight events - Objective Vital Signs & Weight: Vital Signs (12 hours) Temp Pulse Resp BP Pulse Ox 08/06/19 17:03 97.7 F 94 16 103/64 99 08/06/19 11:37 98.1 F 89 16 91/61 100 Weight Admit Weight 126 lb 7 oz Weight 122 lb 4.8 oz Most Recent Monitor Data Heart Rate from ECG 85 NIBP 109/73 NIBP BP-Mean 85 Respiration from ECG 31 SpO2 98 I&O: 08/05/19 08/06/19 08/07/19 06:59 06:59 06:59 Intake Total 3451 383 4451 Output Total 4500 Balance -2650 900 1700 Result Diagrams: 08/03/19 18:06 08/06/19 08:34 Hospitalist ROS - Review of Systems Cardiovascular: denies: chest pain, palpitations, orthopnea, paroxysmal noc. dyspnea, edema, light headedness, other Gastrointestinal: denies: nausea, vomiting, abdominal pain, diarrhea, constipation, melena, hematochezia, other - Medication Medications: Active Medications Generic Name Dose Route Start Last Admin Trade Name Freq PRN Reason Stop Dose Admin Cyanocobalamin 1,000 mcg 08/05/19 09:00 08/06/19 08:17 Vitamin B-12 PO 1,000 mcg DAILY FRANCOIS Administration Famotidine 20 mg 08/03/19 21:00 08/06/19 08:16 Pepcid SLOW IVP 20 mg Q12HR FRANCOIS Administration Folic Acid 1 mg 08/05/19 09:00 08/06/19 08:17 Folvite PO 1 mg DAILY FRANCOIS Administration Sodium Chloride 1,000 mls @ 75 mls/hr 08/05/19 16:15 08/06/19 16:55 Normal Saline 0.9% IV 1,000 mls .[id number] FRANCOIS Administration Lorazepam 0.5 mg 08/04/19 16:39 08/06/19 08:17 Ativan PO 0.5 mg Q4H PRN Administration Anxiety Ondansetron HCl 4 mg 08/03/19 20:09 08/06/19 08:16 Zofran IVP 4 mg Q6H PRN Administration Nausea/Vomiting Pantoprazole Sodium 40 mg 08/04/19 21:00 08/06/19 08:17 Protonix PO 40 mg BID FRANCOIS Administration - Exam General Appearance: NAD Neck: supple Heart: RRR, no gallops Respiratory: no wheezes, no rales Gastrointestinal: non-tender, non-distended, normal bowel sounds Extremities: no cyanosis Hosp A/P - Plan DVT proph w/SCDs 1. Nausea and vomiting secondary to hypotonic hyponatremia, improving. 2. Hyperkalemia, resolved. 3. Chronic hepatitis C with cirrhosis. 4. Generalized weakness, multifactorial. 5. Hyperlipidemia. 6. Hypertension. 7. Tobacco dependence. PLAN: Continue IV fluids per Nephrology. Continue fluid restriction. Lasix and Aldactone are currently on hold. Continue other medications. AM labs
[2019-08-07] MEDS: Sodium Chloride 0.9% 1,000 ML IV SCH ×2 (06:39→08:55)
[2019-08-07 07:34] LABS: #Basophils 0.1 thou/uL (0.0-0.2); #Eosinphils 0.1 thou/uL (0.0-0.7); #Monocytes 0.3 thou/uL (0.11-0.59); #Neutrophils 4.3 thou/uL (1.40-6.50); %Basophils 0.9 % (0.0-1.0); %Eosinophils 2.2 % (0.0-10.0); %Lymphocytes 16.7 % (21.0-51.0); %Monocytes 5.8 % (0.0-10.0); %Neutrophils 74.3 % (42.0-75.0); Hemoglobin 14.1 g/dL (12.0-16.0); Mean Corpuscular HGB CONC 34.7 g/dL (32.0-36.0); Mean Corpuscular Hemoglobin 35.9 pg (27.0-31.0); Mean Platelet Volume 7.6 fL (7.4-10.4); Platelet Count 151 thou/uL (130-400); RBC Distribution Width 11.2 % (11.5-14.5); Red Blood Cell (RBC) Count 3.94 mill/uL (4.20-5.40); White Blood Cell (WBC) Count 5.7 thou/uL (4.8-10.8)
[2019-08-07 07:58] LABS: Anion Gap 11 mmol/L (10-20); BUN (Urea Nitrogen) 7 mg/dL (9.8-20.1); Calc. Creatinine Clearance 61 mL/min (70-130); Calcium 9.4 mg/dL (7.8-10.44); Carbon Dioxide 20 mmol/L (22-29); Chloride 101 mmol/L (98-107); Estimated GFR-MDRD 65; Glucose 92 mg/dL (70-105); Potassium 4.2 mmol/L (3.5-5.1); Sodium 128 mmol/L (136-145)
[2019-08-07] MEDS: Folic Acid 1 MG TAB PO SCH (08:56)
[2019-08-07] MEDS: Cyanocobalamin (Vitamin B-12) 1,000 MCG TAB PO SCH (08:56)
[2019-08-07 08:59] VITALS: BP 112/70; TEMP 97.7
--- NOTE | 2019-08-07 12:57 | PRG ---
DATE OF SERVICE: 08/07/2019 SUBJECTIVE: Patient was seen and examined at bedside and overnight events noted. Patient denies any shortness of breath or chest pain or palpitation. No history of nausea or vomiting or diarrhea or fever or chills or cramps. OBJECTIVE: GENERAL: This is a well-built female, in no apparent distress. VITAL SIGNS: Temperature 97.7. Heart rate 96. Respiratory rate 16. Blood pressure 112/70. HEENT: Atraumatic, normocephalic. Oral mucosa is moist. NECK: Supple. CARDIOVASCULAR: S1, S2 heard. Rate and rhythm regular. RESPIRATORY: Clear to auscultation. GASTROINTESTINAL: Abdomen is soft. MUSCULOSKELETAL: No tenderness. No edema. DERMATOLOGIC: No skin rash. NEUROLOGIC: Alert and awake and oriented x3. No focal neurologic deficits. Moving all the extremities. PSYCHIATRIC: Mood and affect normal. LABORATORY DATA: Sodium 128, potassium 4.2, BUN is 7, and creatinine is 0.9. ASSESSMENT AND PLAN: 1. Severe hyponatremia. Sodium level is much better. Continue on fluid restriction and also hold the diuretics, especially Aldactone. Okay to start Lasix today in 1 to 2 days even though the patient is resistant. Plan discussed with Dr. Canales. 2. Hyperkalemia, better. Continue to limit potassium intake and hold Aldactone. 3. Edema. 4. Hypertension. 5. Constipation. 6. History of cirrhosis. Sodium level is getting better. Okay to discharge home. Follow up with the clinic in 3 to 4 days with BMP before the visit. Job ID: [id number]
--- NOTE | 2019-08-07 20:07 | DIS ---
DATE OF ADMISSION: 08/03/2019 DATE OF DISCHARGE: 08/07/2019 DISCHARGE DISPOSITION: Home. FOLLOWUP: Follow up with primary care physician, Dr. Neelam Ryan in 1 week. ALLERGIES: THE PATIENT IS ALLERGIC TO IODINE AND CODEINE. MEDICATION AT DISCHARGE: Aldactone was discontinued. All other home medications were left unchanged. Basic metabolic profile after 3 to 4 days is recommended. Primary care physician advised to follow. The patient was advised to follow up with Nephrology, Dr. Davalos on next . The patient was seen on the day of discharge. Denies any new complaints. No fever, chills, chest pain, or shortness of breath reported. 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 Davalos. BRIEF HOSPITAL COURSE: The patient is a 59-year-old female with cirrhosis, chronic hepatitis C, presented to the emergency room with generalized weakness along with nausea and vomiting. Workup in the emergency room was consistent with sodium of 111 with a potassium of 5.6. Please refer to the history and physical for details. The patient was admitted to the intensive care unit with a diagnosis of severe symptomatic hyponatremia. She was started on IV fluids. Lasix and Aldactone were held. She was monitored very closely with frequent labs. Sodium gradually improved. Sodium on the day of discharge is 128. She has been cleared by Nephrology for discharge. The patient was counseled on fluid restriction. Daily weight and salt restriction were emphasized. Aldactone has been discontinued. She has been started back on Lasix per Nephrology. FINAL DIAGNOSES: 1. Severe symptomatic hyponatremia causing generalized weakness and nausea and vomiting. 2. Hyperkalemia, resolved. 3. Chronic hepatitis C with cirrhosis. 4. Hypertension. 5. Hyperlipidemia. 6. Ongoing tobacco abuse. SIGNIFICANT LABORATORY DATA: Cortisol level 15.5. Serum osmolality 235. Urine osmolality 130. Urine sodium 38. The patient and the family understands the above plan of care. Job ID: [id number]
--- NOTE | 2019-08-10 00:39 | PQF ---
SHARMILA LEVI MALIK MD [id number] [facility]- B09 [id number] CLINICAL DOCUMENTATION CLARIFICATION FORM: POST DISCHARGE Addendum to original discharge summary date: ____ Late entry note date: __ DATE: 08/10/2019 ATTN: Venkat Dietz Please exercise your independent, professional judgment in responding to the clarification form. Clinical indicators are provided on the bottom of this form for your review Please check appropriate box(s): [ ] Hyponatremia please specify etiology, if known [ ] Hyponatremia due to SIADH (Syndrome of Inappropriate Secretion of Antidiuretic Hormone) [ x ] Hyponatremia due to volume depletion/cirrhosis/diuretics [ ] Unable to determine In addition, please specify: Present on Admission (POA): [ ] Yes [ ] No [ ] Unable to determine CLINICAL INDICATORS - SIGNS / SYMPTOMS / LABS Laboratory Hematology Sodium 08/03 -111, 08/04 116, 08/05 122 Laboratory Hematology 08/03 Potassium 5.6, Chloride 81, BUN 8, Crea 9 H&P p1 2 Dr Gardner presented to ER with generalized weakness and abnormal labs. 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 All Rights Reserved [email or web address]
--- NOTE | 2019-08-10 00:42 | PQF ---
SHARMILA LEVI MALIK MD [id number] [facility]- B09 [id number] CLINICAL DOCUMENTATION CLARIFICATION FORM: POST DISCHARGE Addendum to original discharge summary date: ____ Late entry note date: __ DATE: 08/10/2019 ATTN: Venkat Dietz Please exercise your independent, professional judgment in responding to the clarification form. Clinical indicators are provided on the bottom of this form for your review Please check appropriate box(s) to clarify if the following diagnosis has been ruled in or ruled out: Hepatorenal syndrome [ ] Ruled in diagnosis [ ] Continue to treat [ ] Resolved [ x ] Ruled out diagnosis [ ] Cannot rule out diagnosis [ ] Other diagnosis [ ] Unable to determine In addition, please specify: Present on Admission (POA): [ ] Yes [ ] No [ ] Unable to determine For continuity of documentation, please document condition throughout progress notes and discharge summary. Thank You. CLINICAL INDICATORS - SIGNS / SYMPTOMS / LABS H&P p1 2 Dr Gardner presented to ER with generalized weakness and abnormal labs. H&P p1 2/ Dr Gardner the patient has been on diuretics including spironolactone, which was increased recently H&P p1 2/ Dr Gardner with nausea and vomiting Consult p2 2 Dr Davalos Hyponatremia most likely from volume depletion' RISK FACTORS H&P p1 2/4 Cirrhosis H&P p1 2/4 Hepatitis C H&P p1 2/4 Hypertension H&P p1 2/4 Hyponatremia H&P p1 2/4 Hyperkalemia H&P p1 2/4 retirement use of diuretics Consult p2 2/4 History of alcohol use TREATMENTS MAR 2/4 Protonix 40 mg po MAR 2/ IV Sodium Chloride 1000ml Nephrology Consult 2 Desi Mccabe H&P p2 2/4 recheck electrolytes including sodium and potassium level in 4hrs and reassess H&P p2 2/4 Hold Diuretics H&P p2 2/4 Admitted to [facility] H&P p1 2/4 IVF (This form is maintained as a part of the permanent medical record) 2014 [employer]. All Rights Reserved [email or web address]
== END 2019-08-07 12:50 | disposition home or self-care (01) | DRG 641 ==
LOC: ERS 17:54 → IMCU/EMU 20:11 → T4-B 08-05 10:55
PROVIDERS: ADMIT Internal Medicine; ATTEND Internal Medicine
DX: E87.1 Hypo-osmolality and hyponatremia (principal); E87.5 Hyperkalemia; K74.60 Unspecified cirrhosis of liver; B18.2 Chronic viral hepatitis C; I10 Essential (primary) hypertension; E78.5 Hyperlipidemia, unspecified; J44.9 Chronic obstructive pulmonary disease, unspecified; K59.00 Constipation, unspecified; E86.9 Volume depletion, unspecified; T50.0X5A Adverse effect of mineralocorticoids and their antagonists, initial encounter; Z88.8 Allergy status to other drugs, medicaments and biological substances; Z91.041 Radiographic dye allergy status; Z90.49 Acquired absence of other specified parts of digestive tract; Z90.710 Acquired absence of both cervix and uterus; Z79.899 Other long term (current) drug therapy
CPT/HCPCS: 36415; 36416; 80048; 80053; 82533; 83735; 83930; 83935; 84100; 84300; 85025; 93005; 96361; 96374; J2060; J2405; S0028

== ENCOUNTER 2019-08-09 07:56 | Day surgery (SDC) | payer MEDICARE, MEDICAID ==
[2019-08-06 12:48] VITALS: BMI 20.8
[2019-08-09] MEDS ORDERED: Sodium Bicarbonate 2.5 MEQ/5 ML VIAL ONE (08:08)
[2019-08-09] MEDS ORDERED: Albumin 25% 200 ML ONE (08:09)
[2019-08-09] MEDS ORDERED: Lidocaine 1% PF 5 ML VIAL ONE (08:35)
--- NOTE | 2019-08-09 09:22 | ULT ---
Ultrasound-guided paracentesis: HISTORY: Cirrhosis and recurrent ascites FINDINGS: Informed consent obtained prior to the procedure. Preprocedural imaging demonstrated intrap eritoneal free fluid. An area was marked in the right mid abdomen in the mid axillary line, and then meticulously prepped a nd draped in normal sterile fashion and anesthetized with 1% buffered lidocaine. With direct sonographic guidance, a 19-gauge needle and 5 Lithuanian Yueh catheter were advanced into the abdomen. After the return of fluid, the catheter was advanced, and the needle was removed. Approximately 4.2 L of blood-tinged fluid was aspirated. The introducer sheath was removed, and hemos tasis was achieved with direct pressure. A dry sterile dressing was placed. The patient tolerated the procedure well and without immediate complication. IMPRESSION: Technically successful ultrasound-guided paracentesis.
== END 2019-08-09 09:15 | disposition home or self-care (01) ==
LOC: ULT 07:56
PROVIDERS: ATTEND Internal Medicine
PROC: 0W9G3ZZ Drainage of Peritoneal Cavity, Percutaneous Approach (ICD-10-PCS; principal; 2019-08-09)
DX: K74.60 Unspecified cirrhosis of liver (principal); R18.8 Other ascites; I10 Essential (primary) hypertension; J44.9 Chronic obstructive pulmonary disease, unspecified; F41.9 Anxiety disorder, unspecified; F32.9 Major depressive disorder, single episode, unspecified; D64.9 Anemia, unspecified; D69.6 Thrombocytopenia, unspecified; Z88.5 Allergy status to narcotic agent; Z91.041 Radiographic dye allergy status
CPT/HCPCS: 49083; P9047; J2001

== ENCOUNTER 2019-08-19 08:59 | Emergency (ER) | payer MEDICARE, MEDICAID ==
--- NOTE | 2019-08-19 10:23 | RAD ---
Portable frontal chest radiograph: 08/19/2019 COMPARISON: 06/09/2019 HISTORY: Hyponatremia, abdominal swelling FINDINGS: No pneumothorax or pleural fluid. No focal consolidation or alveolar edema. Heart and media stinal contours are stable. There is mild new increased linear interstitial density in the lung bases. IMPRESSION: Mild basilar interstitial prominence, which may signify mild interstitial edema. No focal consolidation or alveolar edema.
[2019-08-19 10:42] LABS: #Eosinphils 0.1 thou/uL (0.0-0.7); #Lymphocytes 0.7 thou/uL (1.20-3.40); #Monocytes 0.5 thou/uL (0.11-0.59); #Neutrophils 3.8 thou/uL (1.40-6.50); %Basophils 0.8 % (0.0-1.0); %Eosinophils 2.2 % (0.0-10.0); %Lymphocytes 13.4 % (21.0-51.0); %Monocytes 9.1 % (0.0-10.0); %Neutrophils 74.6 % (42.0-75.0); Mean Corpuscular HGB CONC 33.3 g/dL (32.0-36.0); Platelet Count 125 thou/uL (130-400); RBC Distribution Width 11.6 % (11.5-14.5); White Blood Cell (WBC) Count 5.1 thou/uL (4.8-10.8)
[2019-08-19 11:06] LABS: ALT (SGPT) 18 U/L (8-55); AST (SGOT) 25 U/L (5-34); Albumin 3.5 g/dL (3.5-5.0); Alkaline Phosphatase 70 U/L (40-110); Anion Gap 10 mmol/L (10-20); BUN (Urea Nitrogen) Less than 4 mg/dL (9.8-20.1); Bilirubin, Total 0.8 mg/dL (0.2-1.2); Calc. Creatinine Clearance 0 mL/min (70-130); Carbon Dioxide 26 mmol/L (22-29); Chloride 98 mmol/L (98-107); Estimated GFR-MDRD 76; Globulin 3.3 g/dL (2.4-3.5); Glucose 93 mg/dL (70-105); Potassium 3.7 mmol/L (3.5-5.1); Protein, Total 6.8 g/dL (6.0-8.3); Sodium 130 mmol/L (136-145)
== END 2019-08-19 12:12 | disposition home or self-care (01) ==
LOC: ERS 08:59
DX: R18.8 Other ascites (principal); E78.00 Pure hypercholesterolemia, unspecified; R06.02 Shortness of breath; F17.210 Nicotine dependence, cigarettes, uncomplicated; I10 Essential (primary) hypertension; K74.60 Unspecified cirrhosis of liver; F32.9 Major depressive disorder, single episode, unspecified; Z79.51 Long term (current) use of inhaled steroids; Z79.899 Other long term (current) drug therapy
CPT/HCPCS: 71045; 80053; 85025; 93005

== ENCOUNTER 2019-08-26 10:09 | Day surgery (SDC) | payer MEDICARE, MEDICAID ==
[2019-08-25 16:34] VITALS: BMI 20.7
[2019-08-26] MEDS ORDERED: Sodium Bicarbonate 2.5 MEQ/5 ML VIAL ONE (10:24)
[2019-08-26] MEDS ORDERED: Lidocaine 1% PF 5 ML VIAL ONE (10:24)
[2019-08-26 11:58] VITALS: BP 97/62; TEMP 98.1
--- NOTE | 2019-08-26 12:04 | ULT ---
Ultrasound-guided paracentesis: HISTORY: Cirrhosis and ascites. FINDINGS: Informed consent obtained prior to the procedure. Preprocedural imaging demonstrated intrap eritoneal free fluid. An area was marked in the right upper quadrant, and then meticulously prepped and draped in normal st erile fashion and anesthetized with 1% buffered lidocaine. With direct sonographic guidance, a 19-gauge needle and 5 Algerian Yueh catheter were advanced into the abdomen. After the return of fluid, the catheter was advanced, and the needle was removed. Approximately 5 L of clear straw-colored fluid was aspirated. The introducer sheath was removed, and hemostasis was achieved with direct pressure. A dry sterile dressing was placed. Postprocedural ultrasound demonstrates residual intraperitoneal free fluid. The patient tolerated the procedure well and without immediate complication. IMPRESSION: Technically successful ultrasound-guided paracentesis.
== END 2019-08-26 11:40 | disposition home or self-care (01) ==
LOC: ULT 10:09
PROVIDERS: ATTEND Family Medicine
PROC: 0W9G3ZZ Drainage of Peritoneal Cavity, Percutaneous Approach (ICD-10-PCS; principal; 2019-08-26)
DX: K74.60 Unspecified cirrhosis of liver (principal); R18.8 Other ascites; F17.210 Nicotine dependence, cigarettes, uncomplicated; I10 Essential (primary) hypertension; J44.9 Chronic obstructive pulmonary disease, unspecified; K21.9 Gastro-esophageal reflux disease without esophagitis; F41.9 Anxiety disorder, unspecified; F32.9 Major depressive disorder, single episode, unspecified; Z79.899 Other long term (current) drug therapy; Z88.5 Allergy status to narcotic agent; Z91.041 Radiographic dye allergy status
CPT/HCPCS: 49083; J2001

== ENCOUNTER 2019-09-02 10:12 | Day surgery (SDC) | payer MEDICARE, MEDICAID ==
[2019-09-01 14:15] VITALS: BMI 20.7
[2019-09-02 10:48] LABS: INR-International Normal Ratio 1.1; Prothrombin Time 14.5 SEC (12.0-14.7)
--- NOTE | 2019-09-02 12:58 | ULT ---
Ultrasound-guided paracentesis: 09/02/2019 HISTORY: Symptomatic ascites FINDINGS: Informed consent obtained prior to the procedure. Preprocedural imaging demonstrated signif icant ascites throughout the abdomen and pelvis. Right lower quadrant prepped and draped in normal sterile fashion and anesthetized with 1% buffered l idocaine. With direct sonographic guidance, 5 Estonian Yueh catheter is advanced into the ascites and removal of the stylet yielded yellow fluid. 5 L were removed. The patient tolerated the procedure well. No postprocedural complications. IMPRESSION: Successful ultrasound-guided paracentesis yielding 5 L of yellow fluid.
[2019-09-02 14:43] VITALS: BP 99/65; TEMP 98.1
[2019-09-02] MEDS ORDERED: Albumin 25% 200 ML ONE (14:49)
== END 2019-09-02 12:15 | disposition home or self-care (01) ==
LOC: ULT 10:12
PROVIDERS: ATTEND Family Medicine
PROC: 0W9G3ZZ Drainage of Peritoneal Cavity, Percutaneous Approach (ICD-10-PCS; principal; 2019-09-02)
DX: K74.60 Unspecified cirrhosis of liver (principal); R18.8 Other ascites; F17.210 Nicotine dependence, cigarettes, uncomplicated; B18.2 Chronic viral hepatitis C; E87.1 Hypo-osmolality and hyponatremia; I10 Essential (primary) hypertension; J44.9 Chronic obstructive pulmonary disease, unspecified; K21.9 Gastro-esophageal reflux disease without esophagitis; F41.9 Anxiety disorder, unspecified; F32.9 Major depressive disorder, single episode, unspecified; Z79.899 Other long term (current) drug therapy; Z88.5 Allergy status to narcotic agent; Z91.041 Radiographic dye allergy status
CPT/HCPCS: 49083; 85610; 85730; P9047

== ENCOUNTER 2023-07-02 10:16 | Outpatient (CLI) | payer OTHER, MEDICAID | END 2023-07-02 10:17 | disposition home or self-care (01) | LOC: BICRAD 10:16 | PROVIDERS: ATTEND Internal Medicine | DX: R05.9 Cough, unspecified (principal) | CPT/HCPCS: 71046; 87635 ==

== ENCOUNTER 2023-07-11 15:21 | Outpatient (CLI) | payer OTHER, MEDICAID | END 2023-07-11 15:22 | disposition home or self-care (01) | LOC: BICRAD 15:21 | PROVIDERS: ATTEND Family Medicine | DX: R05.1 Acute cough (principal) | CPT/HCPCS: 71046 ==